=== PATIENT | female | born 1945 | race Caucasian/White ===

== ENCOUNTER → 2017-11-20 16:28 | Outpatient (REF) | payer MEDICARE, MEDICAID, SELFPAY ==
[2017-11-20 17:52] LABS: Amphetamine/Metha Screen,Urine Negative ng/mL (<1000); Barbiturates Screen,Urine Negative ng/mL (<200); Benzodiazepines Screen,Urine Negative ng/mL (200); Cannabinoid Screen,Urine Negative ng/mL (<50); Cocaine Screen,Urine Negative ng/g (<300); Methadone Screen,Urine Negative ng/mL (<300); Opiate Screen,Urine Positive ng/mL (<300); Phencyclidine Screen,Urine Negative ng/mL (<25)
== END ==
LOC: LAB 16:28
PROVIDERS: Visit Provider Emergency Medicine
DX: Z79.899 Other long term (current) drug therapy (principal)
CPT/HCPCS: 80305

== ENCOUNTER → 2017-12-20 15:50 | Outpatient (REF) | payer MEDICARE, MEDICAID, SELFPAY ==
[2017-12-20 21:58] LABS: Amphetamine/Metha Screen,Urine Negative ng/mL (<1000); Barbiturates Screen,Urine Negative ng/mL (<200); Benzodiazepines Screen,Urine Negative ng/mL (200); Cannabinoid Screen,Urine Negative ng/mL (<50); Cocaine Screen,Urine Negative ng/g (<300); Methadone Screen,Urine Negative ng/mL (<300)
[2017-12-20 22:27] LABS: Opiate Screen,Urine Positive ng/mL (<300); Phencyclidine Screen,Urine Negative ng/mL (<25)
== END ==
LOC: LAB 15:50
PROVIDERS: Visit Provider Emergency Medicine
DX: Z79.899 Other long term (current) drug therapy (principal)
CPT/HCPCS: 80305

== ENCOUNTER → 2018-01-05 11:16 | Outpatient (CLI) | payer MEDICARE, MEDICAID, SELFPAY ==
[2018-01-05 11:32] LABS: Basophils % 0.6 % (0.1-2.0); Eosinophils # 0.1 K/mm3 (0.0-0.4); Eosinophils % 1.8 % (0.1-12.0); Hematocrit 39.2 % (37.0-47.0); Hemoglobin 11.9 g/dL (12.2-16.2); Lymphocytes # 1.2 K/mm3 (0.7-4.5); Lymphocytes % 28.6 K/mm3 (10-50); Mean Corpuscular HGB Conc 30.3 g/dL (31.8-35.4); Mean Corpuscular Hemoglobin 21.6 pg (27.0-31.2); Mean Corpuscular Volume 71.1 fl (81-99); Mean Platelet Volume 9.4 fl (7.4-10.4); Monocytes # 0.3 K/mm3 (0.1-1.0); Monocytes % 7.8 % (1.7-9.3); Neutrophils # 2.5 K/mm3 (1.8-7.8); Neutrophils % 61.3 % (37.0-80.0); Platelet Count 172 K/mm3 (142-424); Red Blood Count 5.51 M/mm3 (4.20-5.40); Red Cell Distribution Width 16.3 % (11.5-17.5); White Blood Count 4.1 K/mm3 (4.8-10.8)
[2018-01-05 11:46] LABS: Alanine Aminotransferase 31 U/L (12-78); Alkaline Phosphatase 86 U/L (46-116); Anion Gap 13.3 mEq/L (5-15); Aspartate Amino Transferase 19 U/L (15-37); Bilirubin,Total 0.4 mg/dL (0.2-1.0); Blood Urea Nitrogen 15 mg/dL (7-18); Calcium 8.9 mg/dL (8.5-10.1); Carbon Dioxide 27 mmol/L (21.0-32.0); Chloride 104 mmol/L (98-107); Creatinine,Serum 0.82 mg/dL (0.55-1.02); Estimated Glomerular Filt Rate 69 ml/min (>60); GFR (African American) 83 ML/MIN (>60); Glucose 112 mg/dL (74-106); Potassium 4.3 mmoL/L (3.5-5.1); Sodium 140 mmol/L (136-145)
== END ==
PROVIDERS: Visit Provider Otolaryngology
DX: Z01.818 Encounter for other preprocedural examination (principal); L98.9 Disorder of the skin and subcutaneous tissue, unspecified; H93.91 Unspecified disorder of right ear
CPT/HCPCS: 36415; 80053; 85025; 93005

== ENCOUNTER → 2018-01-16 13:32 | Outpatient (REF) | payer MEDICARE, MEDICAID, SELFPAY ==
[2018-01-16 22:24] LABS: Amphetamine/Metha Screen,Urine Negative ng/mL (<1000); Barbiturates Screen,Urine Negative ng/mL (<200); Benzodiazepines Screen,Urine Negative ng/mL (200); Cannabinoid Screen,Urine Negative ng/mL (<50); Cocaine Screen,Urine Negative ng/g (<300); Methadone Screen,Urine Negative ng/mL (<300); Opiate Screen,Urine Positive ng/mL (<300); Phencyclidine Screen,Urine Negative ng/mL (<25)
== END ==
LOC: LAB 13:32
PROVIDERS: Visit Provider Emergency Medicine
DX: Z79.899 Other long term (current) drug therapy (principal)
CPT/HCPCS: 80305

== ENCOUNTER 2018-01-18 08:41 | Day surgery (SDC) | payer MEDICARE, MEDICAID, SELFPAY ==
[2018-01-18 08:56] VITALS: BP 155/65; PULSE 55; RESP 18; TEMP 36.4; O2SAT 96
--- NOTE | 2018-01-18 09:25 | HMH.ANESCL ---
[facility] Anesthesia Checklist - Patient Identification Patient Identification: Arm Band - Structural Data Admitted From: Home Planned Operative Procedure/s: excision skin lesions right ear, center of back Consent for Planned Operative Procedure(s) Verified: Yes Verified Documents: Surgical Consent, History and Physical - NPO Status Verified Time NPO: 00:00 - Additional verifications Anesthesia Reactions: No - Airway Assessment C-Spine Mobility Assessed: Yes (mp2) TMJ Mobility Assessed: Yes Dentition: Good Dentition - Neurological Assessment Level of Consciousness: Awake, Alert - Anesthesia Plan Anesthesia Risk discussed: Yes Anesthesia Plan: Verified ASA Class: II Anesthesia Type: MAC [facility] Anesthesia HX I have reviewed the patient's past medical history: Yes Medical History: Reports:: Cancer (leg- melanoma), Hyperlipidemia, Hypertension, Valvular Heart Disease Denies:: Diabetes Mellitus Type 1, Diabetes Mellitus Type 2, Internal Pacemaker, MRSA, Seizures Other Medical History: Denies: Blood Transfusion Reaction Laterality Cases: Right: Arthroscopy Shoulder Other Surgeries: Yes: Hysterectomy-Total, Other. No: Pacemaker Amputation: No Fractures: No *Family Hx:: Cancer, Heart Attack
[2018-01-18 11:40] VITALS: BP 149/76; PULSE 61; RESP 18; TEMP 36.3; O2SAT 96
[2018-01-18 11:55] VITALS: BP 150/71; PULSE 60; RESP 18; O2SAT 96
[2018-01-18 12:07] VITALS: BP 148/69; PULSE 63; RESP 18; O2SAT 95
--- NOTE | 2018-01-22 12:52 | HMH.OPNOTE ---
Date of procedure: 01/18/18 Pre-op Diagnosis:: 1. 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 Neoplasm back 1.5 cm Post-op Diagnosis:: same Procedure performed:: 1. 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 excision of neoplasm back 1.5 cm with simple repair Surgeon:: Richard Carolina MD [employer]ROLL [employer] BENEFITS MANAGER:: Scott Viera Anesthesia: MAC Estimated blood loss (mL): 3 Operative findings:: same Operative note:: The right ear was prepped and draped the perilesional area was infiltrated with a percent lidocaine containing epinephrine. The lesion was marked on the markup was incised and the lesion was removed along the level of the perichondrium. It was submitted. Bleeding was stopped bipolar cautery. Lateral incisions were made and flaps were elevated and the tissue rearrangement geometric plastic repair was done with interrupted 5-0 nylon sutures. A Dermabond dressing was applied. The patient was repositioned and the lesion on the back was prepped and draped, it measured 1.5 cm. The perilesional area was infiltrated with 2 cc of 2% lidocaine containing epinephrine. The markup was incised and the lesion was excised and submitted. A simple repair was done with interrupted 4-0 nylon sutures. Blood loss for all the procedure was less than 5 cc and completely stopped. A Dermabond dressing was applied to the back lesion and the patient was sent to recovery in good general condition. Condition: stable Disposition: same day Complications:: none
--- NOTE | 2018-01-22 12:57 | P.OP_ITS ---
Date of procedure: 01/18/18 Pre-op Diagnosis:: 1. 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 Neoplasm back 1.5 cm Post-op Diagnosis:: same Procedure performed:: 1. 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 excision of neoplasm back 1.5 cm with simple repair Surgeon:: Richard Carolina MD PERSONAL LINES AGENT:: Scott Viera Anesthesia: MAC Estimated blood loss (mL): 3 Operative findings:: same Operative note:: The right ear was prepped and draped the perilesional area was infiltrated with a percent lidocaine containing epinephrine. The lesion was marked on the markup was incised and the lesion was removed along the level of the perichondrium. It was submitted. Bleeding was stopped bipolar cautery. Lateral incisions were made and flaps were elevated and the tissue rearrangement geometric plastic repair was done with interrupted 5-0 nylon sutures. A Dermabond dressing was applied. The patient was repositioned and the lesion on the back was prepped and draped, it measured 1.5 cm. The perilesional area was infiltrated with 2 cc of 2% lidocaine containing epinephrine. The markup was incised and the lesion was excised and submitted. A simple repair was done with interrupted 4-0 nylon sutures. Blood loss for all the procedure was less than 5 cc and completely stopped. A Dermabond dressing was applied to the back lesion and the patient was sent to recovery in good general condition. Condition: stable Disposition: same day Complications:: none
== END 2018-01-18 12:10 | disposition home or self-care (01) ==
LOC: OR 08:43
PROVIDERS: PCP Emergency Medicine; Visit Provider Otolaryngology
DX: L82.1 Other seborrheic keratosis (principal); L72.0 Epidermal cyst
CPT/HCPCS: 14000; 14060; 88304; 88305; 96374; 96375

== ENCOUNTER → 2018-02-13 14:52 | Outpatient (REF) | payer MEDICARE, MEDICAID, SELFPAY ==
[2018-02-13 18:47] LABS: Amphetamine/Metha Screen,Urine Negative ng/mL (<1000); Barbiturates Screen,Urine Negative ng/mL (<200); Benzodiazepines Screen,Urine Negative ng/mL (200); Cannabinoid Screen,Urine Negative ng/mL (<50); Cocaine Screen,Urine Negative ng/g (<300); Methadone Screen,Urine Negative ng/mL (<300); Opiate Screen,Urine Positive ng/mL (<300); Phencyclidine Screen,Urine Negative ng/mL (<25)
== END ==
LOC: LAB 14:52
PROVIDERS: Visit Provider Emergency Medicine
DX: Z79.899 Other long term (current) drug therapy (principal)
CPT/HCPCS: 80305

== ENCOUNTER → 2018-02-16 11:19 | Outpatient (CLI) | payer MEDICARE, MEDICAID, SELFPAY | PROVIDERS: PCP Emergency Medicine; Visit Provider Emergency Medicine | DX: R07.9 Chest pain, unspecified (principal) | CPT/HCPCS: 93225; 93226 ==

== ENCOUNTER → 2018-03-14 13:07 | Outpatient (REF) | payer MEDICARE, MEDICAID, SELFPAY ==
[2018-03-14 19:09] LABS: Amphetamine/Metha Screen,Urine Negative ng/mL (<1000); Barbiturates Screen,Urine Negative ng/mL (<200); Benzodiazepines Screen,Urine Negative ng/mL (200); Cannabinoid Screen,Urine Negative ng/mL (<50); Cocaine Screen,Urine Negative ng/g (<300); Methadone Screen,Urine Negative ng/mL (<300); Opiate Screen,Urine Negative ng/mL (<300); Phencyclidine Screen,Urine Negative ng/mL (<25)
== END ==
LOC: LAB 13:07
PROVIDERS: Visit Provider Emergency Medicine
DX: Z79.899 Other long term (current) drug therapy (principal)
CPT/HCPCS: 80305

== ENCOUNTER → 2018-04-13 13:30 | Outpatient (CLI) | payer MEDICARE, MEDICAID, SELFPAY ==
[2018-04-13 19:45] LABS: Amphetamine/Metha Screen,Urine Negative ng/mL (<1000); Barbiturates Screen,Urine Negative ng/mL (<200); Benzodiazepines Screen,Urine Negative ng/mL (200); Cannabinoid Screen,Urine Negative ng/mL (<50); Cocaine Screen,Urine Negative ng/g (<300); Methadone Screen,Urine Negative ng/mL (<300); Opiate Screen,Urine Positive ng/mL (<300); Phencyclidine Screen,Urine Negative ng/mL (<25)
== END ==
PROVIDERS: Visit Provider Emergency Medicine
DX: Z79.899 Other long term (current) drug therapy (principal)
CPT/HCPCS: 80305

== ENCOUNTER → 2018-05-11 14:08 | Outpatient (CLI) | payer MEDICARE, MEDICAID, SELFPAY ==
[2018-05-11 18:43] LABS: Amphetamine/Metha Screen,Urine Negative ng/mL (<1000); Barbiturates Screen,Urine Negative ng/mL (<200); Benzodiazepines Screen,Urine Negative ng/mL (<200); Cannabinoid Screen,Urine Negative ng/mL (<50); Cocaine Screen,Urine Negative ng/mL (<300); Methadone Screen,Urine Negative ng/mL (<300); Opiate Screen,Urine Positive ng/mL (<300); Phencyclidine Screen,Urine Negative ng/mL (<25)
== END ==
PROVIDERS: Visit Provider Emergency Medicine
DX: Z79.899 Other long term (current) drug therapy (principal)
CPT/HCPCS: 80305

== ENCOUNTER → 2018-06-11 11:19 | Outpatient (REF) | payer MEDICARE, MEDICAID, SELFPAY ==
[2018-06-11 14:16] LABS: Amphetamine/Metha Screen,Urine Negative ng/mL (<1000); Barbiturates Screen,Urine Negative ng/mL (<200); Benzodiazepines Screen,Urine Negative ng/mL (<200); Cannabinoid Screen,Urine Negative ng/mL (<50); Cocaine Screen,Urine Negative ng/mL (<300); Methadone Screen,Urine Negative ng/mL (<300); Opiate Screen,Urine Negative ng/mL (<300); Phencyclidine Screen,Urine Negative ng/mL (<25)
== END ==
LOC: LAB 11:19
PROVIDERS: Visit Provider Emergency Medicine
DX: Z79.899 Other long term (current) drug therapy (principal)
CPT/HCPCS: 80305

== ENCOUNTER → 2018-06-19 07:56 | Outpatient (CLI) | payer MEDICARE, MEDICAID, SELFPAY | PROVIDERS: Visit Provider Emergency Medicine | DX: Z79.899 Other long term (current) drug therapy (principal) ==

== ENCOUNTER → 2018-07-04 11:18 | Outpatient (REF) | payer MEDICARE, MEDICAID, SELFPAY ==
[2018-07-04 14:19] LABS: Amphetamine/Metha Screen,Urine Negative ng/mL (<1000); Barbiturates Screen,Urine Negative ng/mL (<200); Benzodiazepines Screen,Urine Negative ng/mL (<200); Cannabinoid Screen,Urine Negative ng/mL (<50); Cocaine Screen,Urine Negative ng/mL (<300); Methadone Screen,Urine Negative ng/mL (<300); Opiate Screen,Urine Negative ng/mL (<300); Phencyclidine Screen,Urine Negative ng/mL (<25)
[2018-07-04 18:50] LABS: Basophils % 0.5 % (0.1-2.0); Eosinophils # 0.1 K/mm3 (0.0-0.4); Eosinophils % 3.7 % (0.1-12.0); Hematocrit 38.8 % (37.0-47.0); Hemoglobin 11.7 g/dL (12.2-16.2); Lymphocytes # 1.4 K/mm3 (0.7-4.5); Lymphocytes % 40.9 K/mm3 (10-50); Mean Corpuscular HGB Conc 30.1 g/dL (31.8-35.4); Mean Corpuscular Hemoglobin 21.1 pg (27.0-31.2); Mean Corpuscular Volume 70.2 fl (81-99); Mean Platelet Volume 8.2 fl (7.4-10.4); Monocytes # 0.4 K/mm3 (0.1-1.0); Monocytes % 10.7 % (1.7-9.3); Neutrophils # 1.5 K/mm3 (1.8-7.8); Neutrophils % 44.2 % (37.0-80.0); Platelet Count 143 K/mm3 (142-424); Red Blood Count 5.52 M/mm3 (4.20-5.40); Red Cell Distribution Width 16.5 % (11.5-17.5); White Blood Count 3.4 K/mm3 (4.8-10.8)
[2018-07-04 19:04] LABS: Alanine Aminotransferase 26 U/L (12-78); Albumin Level 4.1 gm/dL (3.4-5.0); Albumin/Globulin Ratio 1.1 (1.1-1.8); Alkaline Phosphatase 83 U/L (46-116); Anion Gap 13.7 mEq/L (5-15); Aspartate Amino Transferase 21 U/L (15-37); Bilirubin,Total 0.4 mg/dL (0.2-1.0); Blood Urea Nitrogen 11 mg/dL (7-18); Calcium 9.2 mg/dL (8.5-10.1); Carbon Dioxide 29 mmol/L (21.0-32.0); Chloride 104 mmol/L (98-107); Creatinine,Serum 0.86 mg/dL (0.55-1.02); Estimated Glomerular Filt Rate 65 ml/min (>60); GFR (African American) 79 ML/MIN (>60); Globulin 3.6 gm/dl (1.3-3.2); Glucose 104 mg/dL (74-106); Potassium 4.7 mmoL/L (3.5-5.1); Sodium 142 mmol/L (136-145); Total Protein,Serum 7.7 gm/dL (6.4-8.2)
== END ==
LOC: LAB 11:18
PROVIDERS: Visit Provider Emergency Medicine
DX: Z79.899 Other long term (current) drug therapy (principal); Z95.3 Presence of xenogenic heart valve; M54.5 Low back pain
CPT/HCPCS: 80053; 80305; 85025

== ENCOUNTER → 2018-07-04 15:08 | Outpatient (CLI) | payer MEDICARE, MEDICAID, SELFPAY ==
[2018-07-13 12:22] LABS: Alprazolam Negative (Cutoff=100); Benzodiazepines Positive ng/mL (Cutoff=100); Clonazepam Positive (.); Flurazepam Negative (Cutoff=100); Lorazepam Negative (Cutoff=100); Midazolam Negative (Cutoff=100); Oxycodone Positive (.); Oxymorphone Positive (.); Temazepam Negative (Cutoff=100); Triazolam Negative (Cutoff=100)
[2018-07-13 19:01] LABS: Clonazepam Confirm 363 ng/mL (Cutoff=100); Oxycodone Confirm 758 ng/mL (Cutoff=100); Oxymorphone Confirm 227 ng/mL (Cutoff=100)
== END ==
PROVIDERS: Visit Provider Emergency Medicine
DX: M54.5 Low back pain (principal); Z79.899 Other long term (current) drug therapy; Z95.3 Presence of xenogenic heart valve
CPT/HCPCS: 80346; 80365

== ENCOUNTER → 2018-08-08 13:07 | Outpatient (REF) | payer MEDICARE, MEDICAID, SELFPAY ==
[2018-08-08 18:40] LABS: Amphetamine/Metha Screen,Urine Negative ng/mL (<1000); Barbiturates Screen,Urine Negative ng/mL (<200); Benzodiazepines Screen,Urine Negative ng/mL (<200); Cannabinoid Screen,Urine Negative ng/mL (<50); Cocaine Screen,Urine Negative ng/mL (<300); Methadone Screen,Urine Negative ng/mL (<300); Opiate Screen,Urine Positive ng/mL (<300); Phencyclidine Screen,Urine Negative ng/mL (<25)
== END ==
LOC: LAB 13:07
PROVIDERS: Visit Provider Emergency Medicine
DX: Z79.899 Other long term (current) drug therapy (principal)
CPT/HCPCS: 80305

== ENCOUNTER → 2018-09-06 16:32 | Outpatient (CLI) | payer MEDICARE, MEDICAID, SELFPAY ==
[2018-09-07 18:27] LABS: Amphetamine/Metha Screen,Urine Negative ng/mL (<1000); Barbiturates Screen,Urine Negative ng/mL (<200); Benzodiazepines Screen,Urine Positive ng/mL (<200); Cannabinoid Screen,Urine Negative ng/mL (<50); Cocaine Screen,Urine Negative ng/mL (<300); Methadone Screen,Urine Negative ng/mL (<300); Opiate Screen,Urine Negative ng/mL (<300); Phencyclidine Screen,Urine Negative ng/mL (<25)
[2018-09-16 07:11] LABS: Alprazolam Negative (Cutoff=100); Benzodiazepines Positive ng/mL (Cutoff=100); Clonazepam Positive (.); Flurazepam Negative (Cutoff=100); Lorazepam Negative (Cutoff=100); Midazolam Negative (Cutoff=100); Oxycodone (GC/MS) 805 ng/mL (Cutoff=100); Oxymorphone (GC/MS) 639 ng/mL (Cutoff=100); Temazepam Positive (.); Triazolam Negative (Cutoff=100)
[2018-09-17 03:55] LABS: Clonazepam Confirm 300 ng/mL (Cutoff=100); Opiates Negative (Cutoff=100)
== END ==
PROVIDERS: PCP Emergency Medicine; Visit Provider Emergency Medicine
DX: M54.5 Low back pain (principal)
CPT/HCPCS: 80305; 80346; 80361; 80365; G0480

== ENCOUNTER → 2018-10-05 18:15 | Outpatient (CLI) | payer MEDICARE, MEDICAID, SELFPAY ==
[2018-10-05 19:11] LABS: Amphetamine/Metha Screen,Urine Negative ng/mL (<1000); Barbiturates Screen,Urine Negative ng/mL (<200); Benzodiazepines Screen,Urine Negative ng/mL (<200); Cannabinoid Screen,Urine Negative ng/mL (<50); Cocaine Screen,Urine Negative ng/mL (<300); Methadone Screen,Urine Negative ng/mL (<300); Opiate Screen,Urine Negative ng/mL (<300); Phencyclidine Screen,Urine Negative ng/mL (<25)
== END ==
PROVIDERS: Visit Provider Emergency Medicine
DX: M54.5 Low back pain (principal)
CPT/HCPCS: 80305

== ENCOUNTER → 2018-11-26 17:54 | Outpatient (CLI) | payer MEDICARE, MEDICAID, SELFPAY ==
[2018-11-26 22:40] LABS: Amphetamine/Metha Screen,Urine Negative ng/mL (<1000); Barbiturates Screen,Urine Negative ng/mL (<200); Benzodiazepines Screen,Urine Positive ng/mL (<200); Cannabinoid Screen,Urine Negative ng/mL (<50); Cocaine Screen,Urine Negative ng/mL (<300); Methadone Screen,Urine Negative ng/mL (<300); Opiate Screen,Urine Negative ng/mL (<300); Phencyclidine Screen,Urine Negative ng/mL (<25)
[2018-12-08 08:21] LABS: Oxycodone (GC/MS) 340 ng/mL (Cutoff=100)
[2018-12-08 12:57] LABS: Opiates Negative (Cutoff=100)
== END ==
PROVIDERS: Visit Provider Emergency Medicine
DX: G89.29 Other chronic pain (principal)
CPT/HCPCS: 80305; 80361; 80365; G0480

== ENCOUNTER → 2019-01-23 18:20 | Outpatient (CLI) | payer MEDICARE, MEDICAID, SELFPAY ==
[2019-01-23 19:50] LABS: Amphetamine/Metha Screen,Urine Negative ng/mL (<1000); Barbiturates Screen,Urine Negative ng/mL (<200); Benzodiazepines Screen,Urine Negative ng/mL (<200); Cannabinoid Screen,Urine Negative ng/mL (<50); Cocaine Screen,Urine Negative ng/mL (<300); Methadone Screen,Urine Negative ng/mL (<300); Opiate Screen,Urine Negative ng/mL (<300); Phencyclidine Screen,Urine Negative ng/mL (<25)
[2019-01-30 15:25] LABS: Oxycodone (GC/MS) 222 ng/mL (Cutoff=100)
[2019-01-30 15:43] LABS: Opiates Negative (Cutoff=100); Oxymorphone (GC/MS) 242 ng/mL (Cutoff=100)
== END ==
PROVIDERS: Visit Provider Emergency Medicine
DX: M54.5 Low back pain (principal)
CPT/HCPCS: 80305; 80361; 80365; G0480

== ENCOUNTER → 2019-02-08 08:28 | Outpatient (CLI) | payer MEDICARE, MEDICAID, SELFPAY ==
--- NOTE | 2019-02-08 08:37 | XR_ITS ---
XR shoulder LT min 2V Ordering Physician: Pako William MD Patient Age: 73 years: Female HISTORY: ITS.REASON: axillary, grashy, supraspinatus views Shoulder pain 2 months history of torn rotator cuff opposite shoulder TECHNIQUE: 3 views shoulder COMPARISON :None FINDINGS Glenohumeral joint appears intact. Humeral head and neck intact tuberosity intact. Glenoid appears satisfactory. AC joint intact. Subacromial space adequate on these views. No fracture nor dislocation. Normal glenohumeral relationships. Upper right ribs negative and right lung apex clear. Previous median sternotomy. IMPRESSION: Negative views the right shoulder. No fracture nor dislocation. Glenohumeral joint intact.
== END ==
PROVIDERS: PCP Emergency Medicine; Visit Provider Orthopaedic Surgery
DX: M25.512 Pain in left shoulder (principal)
CPT/HCPCS: 73030

== ENCOUNTER → 2019-02-13 15:06 | Outpatient (CLI) | payer MEDICARE, MEDICAID, SELFPAY ==
--- NOTE | 2019-02-13 15:07 | MR_ITS ---
MR shoulder LT wo con HISTORY:Left shoulder pain with inability, above the head ITS.REASON: evaluate for rotator cuff tear ORDERING PHYSICIAN: Pako William MD PATIENT AGE: 73 years Comparison: 02/08/2019 TECHNIQUE: Standard multiplanar multiecho sequences are performed without contrast. FINDINGS: There is acromioclavicular arthropathy with inferior spurring at the AC joint causing indentation upon the musculotendinous junction of the supraspinatus muscle and tendon consistent with impingement. There is thickening of the supraspinatus tendon distally consistent with tendinopathy/tendinosis with some focal increased T2 signal distally which could be due to partial tear. A full-thickness tear with tendon and muscle retraction is not present There is also some mild thickening of the infraspinatus tendon consistent with tendinopathy/tendinosis. Subscapularis tendon is thickened with some discontinuity along the distal aspect just medial to the bicipital groove suggesting a tear of the subscapularis tendon. Teres minor tendon is unremarkable. Bicipital tendon is in place. There is a small amount fluid within the shoulder joint and some subchondral cystic changes of the humeral head. No obvious labral tear. No fracture or dislocation. IMPRESSION: 1. Acromioclavicular arthropathy with subacromial stenosis and impingement upon the vascular tendon is junction of the supraspinatus. 2. Tendinopathy/tendinosis of the supraspinatus tendon with suspected partial tear distally 3. Tendinopathy/tendinosis of the infraspinatus tendon. 4. There does appear to be a partial tear of the subscapularis tendon just medial to the bicipital groove. 5. Small shoulder joint effusion with subchondral cystic changes of the humeral head
--- NOTE | 2019-02-13 15:07 | XR_ITS ---
XR chest 2V HISTORY: Evaluate the loop recorder device before MRI ITS.REASON: recomended by Dr uGerrero ORDERING PHYSICIAN: Pako William MD PATIENT AGE: 73 years COMPARISON: None FINDINGS: PA and lateral views of the chest are obtained to evaluate the loop recorder device to ensure adequate placement for MRI safety. The loop recorder is along the presternal region at the third interspace level which constitutes a safe position for MRI. There has been a prior median sternotomy and aortic valve replacement. There are degenerative changes in the thoracic spine and there is a metallic screw like density over the right humeral head. IMPRESSION: 1. No acute finding. 2. The loop recorder device is felt to be in a safe position for MRI 3. Status post aortic valve replacement
--- NOTE | 2019-02-13 15:07 | MM_ITS ---
MM Dig screening mamm BI w/CAD ORDERING PHYSICIAN : Pako William MD PATIENT AGE: 73 years GENDER: Female COMPARISON: February 2014, March 2016, bilateral mammogram . Also May 2016 right mammogram following percutaneous stereotactic biopsy- revealed fibrocystic changes INDICATION: ITS.Routine screening mammogram. Previous previous percutaneous biopsy right breast with metallic clip towards 12 o'clock position at central breast. . thispercutaneous stereotactic biopsy- revealed fibrocystic changes Left breast but no areas of concern. TECHNIQUE: Standard CC and MLO images were obtained. R2 CAD reviewed. FINDINGS: . moderate residual breast density anterior breast. Slightly heterogeneous breast Mild/moderate asymmetry again noted LEFT BREAST: . near 1 cm area of asymmetric density at seen towards superior left breast, residing at the upper outer quadrant, towards anterior left breast. This Density has been on many previous mammograms; & although appears similar on standard cc and MLO view it does appear to be denser and more pronounced on the additional MLO with nipple in profile view.... Actually this density is been present present since 2010 and 2013; however since it is dense, more focal in given its and with irregular margins & stand out unique focus of density,... I would suggest spot views and ultrasound to further evaluate. No previous Ultrasound this area is available on PACS.. .. Additional. Loop recorder projected over the medial left breast only slightly obscures the medialmost breast on these 2 views.. RIGHT BREAST: Again see asymmetric areas of density at the right retroareolar region. Area labeled A: The more superior area labeled a has been present since 2015. Although it does appear to be very slightly generous size in character today measuring 14 mm height. Thus I would suggest ultrasound and spot views of right breast of this area when patient returns as well. Area labeled B: Just inferior to this in the area labeled B small 7 mm length. Seen here on MLO view and I believe correlates with a slightly more prominent duct at immediate retroareolar region cc view.. Suspect Mild ductal prominence likely present here versus small cyst . This area B should be included with the spot views and ultrasound .. MicroMark marker clip from previous stereotactic biopsy deeper at the breast towards 12:00 is noted.. Calcifications at that site were removed with the biopsy. ...... IMPRESSION: ...... Most likely benign densities bilaterally-but warrant & with benefit from spot views & ultrasound bilaterally 1. Right Breast. Focal somewhat Nodular appearing densities retroareolar region. Although similar to 2017, these areas both appear very slightly more generous today... Area labeled A and B are slightly more evident today Specifically Area Labeled A appears very slightly on the MLO view. Area labeled B more inferiorly, slightly focal density character which suspect is a prominent duct or cyst) . Most likely is a stable features but significance but would benefit from follow-up spot views and ultrasound further evaluate right breast .. Previous biopsy deeper right breast removed calcifications. 2.. Left Breast. A long-standing density at the superior breast, upper-outer quadrant again noted but appears more pronounced particularly on today's additional MLO view, nipple profile view. . Suggest additional CC and MLO and 90 degree spot views along with left breast ultrasound . This focal area of density has not been evaluated ultrasound previously ... Again most likely is a stable feature but would benefit from additional views given this focal density & ill-defined margins BI-RADS Category: 0 Need Additional Imaging Evaluation
== END ==
PROVIDERS: PCP Emergency Medicine; Visit Provider Orthopaedic Surgery
DX: I11.9 Hypertensive heart disease without heart failure (principal); Z12.31 Encounter for screening mammogram for malignant neoplasm of breast; M25.512 Pain in left shoulder; Z95.3 Presence of xenogenic heart valve
CPT/HCPCS: 71046; 73221; 77067

== ENCOUNTER → 2019-02-22 17:23 | Outpatient (CLI) | payer MEDICARE, MEDICAID, SELFPAY ==
[2019-02-22 19:53] LABS: Blood Urea Nitrogen 15 mg/dL (7-18); Calcium 9.8 mg/dL (8.5-10.1); Carbon Dioxide 26 mmol/L (21.0-32.0); Chloride 102 mmol/L (98-107); Creatinine,Serum 0.82 mg/dL (0.55-1.02); Estimated Glomerular Filt Rate 69 ml/min (>60); GFR (African American) 83 ML/MIN (>60); Glucose 106 mg/dL (74-106); Sodium 139 mmol/L (136-145)
== END ==
PROVIDERS: Visit Provider Emergency Medicine
DX: I11.9 Hypertensive heart disease without heart failure (principal)
CPT/HCPCS: 80048

== ENCOUNTER → 2019-03-05 13:25 | Outpatient (CLI) | payer MEDICARE, MEDICAID, SELFPAY ==
--- NOTE | 2019-03-05 13:26 | US_ITS ---
MM Dig mamm BI DX w/CAD, US breast RT complete, US breast LT complete INDICATION: Follow-up abnormal mammogram ORDERING PHYSICIAN: Benito Mathew MD PATIENT AGE: 73 years COMPARISON: 02/13/2019, 03/14/2016 TECHNIQUE: Problem-solving views performed of both breasts along with bilateral breast ultrasound FINDINGS: There is asymmetric density in the central aspect of the right breast in the retroareolar area. This does appear to compress out on the MLO view. There is some persistent asymmetric density on the cc view spot compression view. This may be due to an area of scarring been near the previous biopsy clip. Right breast ultrasound: There is a 9 mm cyst at 11:00 which may part contributing to the density noted on the mammogram. An additional 5 mm cyst is also present at 11:00. No suspicious nodules are evident. Previously there was a 1 cm cyst hypoechoic nodule with poor through transmission of sound at 12:00 not apparent on today's exam. Left mammogram: Spot compression views are performed of the lateral left breast showing asymmetric density at 12 mm similar to the previous exam. This is not as well demonstrated on the focal spot compression view and is not demonstrated on the orthogonal view. This nodular area has been stable since 10/19/2012. Left breast ultrasound: No discrete abnormality evident. IMPRESSION: Asymmetric densities are present in both breasts probably benign. No convincing evidence of malignancy. Recommend bilateral 6 month mammographic and right-sided sonographic follow-up BI-RADS Category: 3 Probably Benign Finding Short Term Follow-up RECOMMENDED FOLLOW-UP: 6M - 6 MONTH FOLLOW-UP (A letter has been sent to the patient regarding results of the study.)
== END ==
PROVIDERS: PCP Emergency Medicine; Visit Provider Emergency Medicine
DX: R92.8 Other abnormal and inconclusive findings on diagnostic imaging of breast (principal)
CPT/HCPCS: 76641; 77066

== ENCOUNTER → 2019-04-17 11:02 | Outpatient (CLI) | payer MEDICARE, MEDICAID, SELFPAY ==
--- NOTE | 2019-04-17 11:06 | CA_ITS ---
PROCEDURE: 2-D M-mode and color Doppler study INDICATIONS FOR THE TEST: Chest pain COPD Heart Murmur Tobacco Smoking Palpitations Fatigue Syncope Edema HypertensionXDiabetes Mellitus Rheumatic Fever SOBXDOE Obesity HyperlipidemiaX Family History HD Additional History AF,BIOPROSTHETIC AV PATIENT INFORMATION HEIGHT: 67 WEIGHT:174 GENDER: Female B/P:156/82 2-D/M-MODE INTERPRETATION: 2-D MEASUREMENTS OBSERVED VALUES IN CMS Right Ventricular Dimension (RVDd) 2.3 Interventricular Septum (Thickness)(IVsd) 1.1 Left Ventricular Internal Dimensions(LVIDd) 5.1 Left Ventricular Posterior Wall (Thickness)(LVPWd) 1.1 Aortic Root 4.9 Aortic Cusp Separation Left Atrial Dimensions (LAD) 2.0 2D 1. Left atrium is mildly enlarged, left ventricle is normal size, mild concentric left ventricular hypertrophy, visually estimated ejection fraction 55% with no regional wall motion abnormality. 2. The right atrium and right ventricle are normal size and contractility. 3. There is mild prosthetic valve noted in the aortic position, the valve is well seated. 4. The mitral and tricuspid valve leaflets are minimally thickened. 5. The pulmonic valve is poorly visualized. 6. No significant pericardial effusion noted. DOPPLER INTERROGATION: 1. The maximum aortic out flow velocity across the prosthetic valve is 3.5 m/s, resulting in a mean gradient across valve of 28 mmHg, this represents moderate prosthetic valve stenosis, there is mild aortic insufficiency. 2. The mitral inflow velocity within normal range, there is no mitral stenosis, there is mild mitral regurgitation. Grade 1 diastolic dysfunction seen with tissue Doppler evidence of raised left atrial pressure. 3. Mild tricuspid regurgitation, tricuspid regurgitation jet velocity is inadequate for calculation of the right ventricular systolic pressure. CONCLUSION: 1. Mildly enlarged left atrium, normal left ventricular size, visually estimated ejection fraction 55% with no regional wall motion abnormality, grade 1 diastolic dysfunction seen with tissue Doppler evidence of raised left atrial pressure. 2. Mild prosthetic valve in aortic position, mean gradient across valve is 28 mmHg represents moderate prosthetic valve stenosis, there is mild aortic insufficiency. 3. Mild mitral and tricuspid regurgitation 4. No significant pericardial effusion noted.
== END ==
PROVIDERS: PCP Emergency Medicine; Visit Provider Nurse Practitioner Family
DX: E78.2 Mixed hyperlipidemia (principal); I11.9 Hypertensive heart disease without heart failure; I27.20 Pulmonary hypertension, unspecified; I48.0 Paroxysmal atrial fibrillation; Z95.3 Presence of xenogenic heart valve
CPT/HCPCS: 93306

== ENCOUNTER → 2019-04-23 18:02 | Outpatient (CLI) | payer MEDICARE, MEDICAID, SELFPAY ==
[2019-04-23 19:17] LABS: Amphetamine/Metha Screen,Urine Negative ng/mL (<1000); Barbiturates Screen,Urine Negative ng/mL (<200); Benzodiazepines Screen,Urine Negative ng/mL (<200); Cannabinoid Screen,Urine Negative ng/mL (<50); Cocaine Screen,Urine Negative ng/mL (<300); Methadone Screen,Urine Negative ng/mL (<300); Opiate Screen,Urine Positive ng/mL (<300); Phencyclidine Screen,Urine Negative ng/mL (<25)
== END ==
PROVIDERS: Visit Provider Emergency Medicine
DX: Z79.899 Other long term (current) drug therapy (principal)
CPT/HCPCS: 80305

== ENCOUNTER → 2019-06-21 12:15 | Outpatient (CLI) | payer MEDICARE, MEDICAID, SELFPAY ==
[2019-06-24 17:32] LABS: Amphetamine/Metha Screen,Urine Negative ng/mL (<1000); Barbiturates Screen,Urine Negative ng/mL (<200); Benzodiazepines Screen,Urine Positive ng/mL (<200); Cannabinoid Screen,Urine Negative ng/mL (<50); Cocaine Screen,Urine Negative ng/mL (<300); Methadone Screen,Urine Negative ng/mL (<300); Opiate Screen,Urine Positive ng/mL (<300); Phencyclidine Screen,Urine Negative ng/mL (<25)
== END ==
PROVIDERS: Visit Provider Emergency Medicine
DX: M54.5 Low back pain (principal)
CPT/HCPCS: 80305

== ENCOUNTER → 2019-08-20 17:22 | Outpatient (CLI) | payer MEDICARE, MEDICAID, SELFPAY ==
[2019-08-20 21:05] LABS: Amphetamine/Metha Screen,Urine Negative ng/mL (<1000); Barbiturates Screen,Urine Negative ng/mL (<200); Benzodiazepines Screen,Urine Negative ng/mL (<200); Cannabinoid Screen,Urine Negative ng/mL (<50); Cocaine Screen,Urine Negative ng/mL (<300); Methadone Screen,Urine Negative ng/mL (<300); Opiate Screen,Urine Negative ng/mL (<300); Phencyclidine Screen,Urine Negative ng/mL (<25)
[2019-08-28 08:16] LABS: Opiates Negative (Cutoff=100)
== END ==
PROVIDERS: Visit Provider Emergency Medicine
DX: M54.5 Low back pain (principal); Z79.899 Other long term (current) drug therapy
CPT/HCPCS: 80305; 80361; 80365; G0480

== ENCOUNTER → 2019-10-18 16:45 | Outpatient (CLI) | payer MEDICARE, MEDICAID, SELFPAY ==
[2019-10-18 17:26] LABS: Amphetamine/Metha Screen,Urine Negative ng/mL (<1000); Barbiturates Screen,Urine Negative ng/mL (<200); Benzodiazepines Screen,Urine Negative ng/mL (<200); Cannabinoid Screen,Urine Negative ng/mL (<50); Cocaine Screen,Urine Negative ng/mL (<300); Methadone Screen,Urine Negative ng/mL (<300); Opiate Screen,Urine Positive ng/mL (<300); Phencyclidine Screen,Urine Negative ng/mL (<25)
== END ==
PROVIDERS: Visit Provider Emergency Medicine
DX: M54.5 Low back pain (principal)
CPT/HCPCS: 80305

== ENCOUNTER → 2019-12-18 18:28 | Outpatient (CLI) | payer MEDICARE, MEDICAID, SELFPAY ==
[2019-12-18 18:55] LABS: Basophils % 0.5 % (0.1-2.0); Eosinophils # 0.1 K/mm3 (0.0-0.4); Eosinophils % 2.3 % (0.1-12.0); Hematocrit 39.5 % (37.0-47.0); Hemoglobin 11.8 g/dL (12.2-16.2); Lymphocytes # 1.4 K/mm3 (0.7-4.5); Mean Corpuscular HGB Conc 29.9 g/dL (31.8-35.4); Mean Platelet Volume 9.1 fl (7.4-10.4); Monocytes # 0.3 K/mm3 (0.1-1.0); Monocytes % 8.5 % (1.7-9.3); Neutrophils # 1.8 K/mm3 (1.8-7.8); Neutrophils % 49.6 % (37.0-80.0); Platelet Count 131 K/mm3 (142-424); Red Blood Count 5.13 M/mm3 (4.20-5.40); Red Cell Distribution Width 15.1 % (11.5-17.5); White Blood Count 3.6 K/mm3 (4.8-10.8)
[2019-12-18 19:33] LABS: Amphetamine/Metha Screen,Urine Negative ng/mL (<1000); Barbiturates Screen,Urine Negative ng/mL (<200); Benzodiazepines Screen,Urine Negative ng/mL (<200); Cannabinoid Screen,Urine Negative ng/mL (<50); Cocaine Screen,Urine Negative ng/mL (<300); Methadone Screen,Urine Negative ng/mL (<300); Opiate Screen,Urine Positive ng/mL (<300); Phencyclidine Screen,Urine Negative ng/mL (<25)
[2019-12-18 20:01] LABS: Alanine Aminotransferase 23 U/L (9-52); Albumin Level 3.9 g/dL (3.4-5.0); Albumin/Globulin Ratio 1.1 (1.1-1.8); Alkaline Phosphatase 88 U/L (46-116); Anion Gap 13.8 mEq/L (5-15); Aspartate Amino Transferase 29 U/L (15-37); Bilirubin,Total 0.4 mg/dL (0.2-1.0); Blood Urea Nitrogen 17 mg/dL (7-18); Calcium 8.6 mg/dL (8.5-10.1); Carbon Dioxide 28 mmol/L (21.0-32.0); Chloride 105 mmol/L (98-107); Chol/HDL Ratio 6.2 (1-3.5); Cholesterol 191 mg/dL (140-200); Creatinine,Serum 0.84 mg/dL (0.55-1.02); Estimated Glomerular Filt Rate 67 ml/min (>60); Free T4 (Free Thyroxine) 0.88 ng/dl (0.76-1.46); GFR (African American) 81 ML/MIN (>60); Globulin 3.4 gm/dl (1.3-3.2); Glucose 90 mg/dL (74-106); HDL Cholesterol 31 mg/dL (29-89); LDL Cholesterol 121 mg/dL (0-130); Potassium 4.8 mmoL/L (3.5-5.1); Sodium 142 mmol/L (137-145); Thyroid Stimulating Hormone 3.06 uIU/ml (0.358-3.740); Total Protein,Serum 7.3 g/dL (6.4-8.2); Triglycerides 195 mg/dL (30-200); VLDL Cholesterol 39 mg/dL (0-40)
== END ==
PROVIDERS: Visit Provider Emergency Medicine
DX: I27.20 Pulmonary hypertension, unspecified (principal); I49.5 Sick sinus syndrome; I10 Essential (primary) hypertension; M54.5 Low back pain
CPT/HCPCS: 80053; 80061; 80305; 84439; 84443; 85025

== ENCOUNTER → 2019-12-31 14:15 | Outpatient (CLI) | payer MEDICARE, MEDICAID, SELFPAY ==
--- NOTE | 2019-12-31 14:41 | ECG_ITS ---
APPROVED REPORT Exam: Resting ECG HR:64 bpm ECG Measurements Heart Rate 64 AXES DC 214 P 8 QRSd 110 QRS -37 QT 452 T 21 QTc 466 <Conclusion> Sinus rhythm with 1st degree AV block Left axis deviation Abnormal ECG Electronically signed by : Elian Norris, 01/01/2020 16:11:37
[2019-12-31 15:25] LABS: Basophils % 0.5 % (0.1-2.0); Eosinophils # 0.1 K/mm3 (0.0-0.4); Eosinophils % 1.9 % (0.1-12.0); Hematocrit 39.9 % (37.0-47.0); Hemoglobin 12.2 g/dL (12.2-16.2); Lymphocytes # 1.6 K/mm3 (0.7-4.5); Lymphocytes % 36.9 % (10-50); Mean Corpuscular HGB Conc 30.7 g/dL (31.8-35.4); Mean Corpuscular Hemoglobin 23.4 pg (27.0-31.2); Mean Corpuscular Volume 76.4 fl (81-99); Mean Platelet Volume 8.5 fl (7.4-10.4); Monocytes # 0.3 K/mm3 (0.1-1.0); Monocytes % 7.8 % (1.7-9.3); Neutrophils # 2.3 K/mm3 (1.8-7.8); Neutrophils % 52.9 % (37.0-80.0); Platelet Count 143 K/mm3 (142-424); Red Blood Count 5.23 M/mm3 (4.20-5.40); Red Cell Distribution Width 15.4 % (11.5-17.5); White Blood Count 4.3 K/mm3 (4.8-10.8)
[2019-12-31 17:03] LABS: Anion Gap 12.3 mEq/L (5-15); Blood Urea Nitrogen 20 mg/dl (7-17); Calcium 9.2 mg/dl (8.4-10.2); Carbon Dioxide 28 mmol/L (22.0-30.0); Chloride 101 mmol/L (98-107); Estimated Glomerular Filt Rate 71 ml/min (>60); GFR (African American) 85 ML/MIN (>60); Glucose 91 mg/dl (74-100); Potassium 5.3 mmoL/L (3.5-5.1); Sodium 136 mmol/L (136-145)
== END ==
PROVIDERS: Visit Provider Otolaryngology
DX: Z01.818 Encounter for other preprocedural examination (principal); C44.311 Basal cell carcinoma of skin of nose
CPT/HCPCS: 36415; 80048; 85025; 93005

== ENCOUNTER → 2020-01-07 12:21 | Outpatient (CLI) | payer MEDICARE, MEDICAID, SELFPAY ==
[2020-01-07 14:14] LABS: Chloride 102 mmol/L (98-107)
[2020-01-07 14:15] LABS: Potassium 4.8 mmoL/L (3.5-5.1); Sodium 135 mmol/L (136-145)
[2020-01-07 14:17] LABS: Blood Urea Nitrogen 16 mg/dl (7-17); Estimated Glomerular Filt Rate 71 ml/min (>60); GFR (African American) 85 ML/MIN (>60)
[2020-01-07 14:18] LABS: Anion Gap 10.8 mEq/L (5-15); Carbon Dioxide 27 mmol/L (22.0-30.0); Glucose 100 mg/dl (74-100)
== END ==
PROVIDERS: Visit Provider Urology
DX: E78.2 Mixed hyperlipidemia (principal); I10 Essential (primary) hypertension; I27.20 Pulmonary hypertension, unspecified; I48.0 Paroxysmal atrial fibrillation; Z95.3 Presence of xenogenic heart valve
CPT/HCPCS: 36415; 80048

== ENCOUNTER → 2020-01-10 12:53 | Outpatient (CLI) | payer MEDICARE, MEDICAID, SELFPAY | PROVIDERS: PCP Emergency Medicine; Visit Provider Urology | DX: E78.2 Mixed hyperlipidemia (principal); I10 Essential (primary) hypertension; I27.20 Pulmonary hypertension, unspecified; I48.0 Paroxysmal atrial fibrillation; R00.2 Palpitations; Z01.810 Encounter for preprocedural cardiovascular examination; Z95.3 Presence of xenogenic heart valve | CPT/HCPCS: 93306 ==

== ENCOUNTER → 2020-08-12 09:59 | Outpatient (CLI) | payer MEDICARE, MEDICAID, SELFPAY ==
[2020-08-12 10:55] LABS: Basophils % 0.8 % (0.1-2.0); Eosinophils # 0.1 K/mm3 (0.0-0.4); Eosinophils % 2.8 % (0.1-12.0); Hematocrit 39.7 % (37.0-47.0); Hemoglobin 12.1 g/dL (12.2-16.2); Lymphocytes # 1.4 K/mm3 (0.7-4.5); Lymphocytes % 33.7 % (10-50); Mean Corpuscular HGB Conc 30.5 g/dL (31.8-35.4); Mean Corpuscular Hemoglobin 23.5 pg (27.0-31.2); Mean Corpuscular Volume 77.1 fl (81-99); Mean Platelet Volume 8.2 fl (7.4-10.4); Monocytes # 0.3 K/mm3 (0.1-1.0); Neutrophils # 2.2 K/mm3 (1.8-7.8); Neutrophils % 54.6 % (37.0-80.0); Platelet Count 127 K/mm3 (142-424); Red Blood Count 5.15 M/mm3 (4.20-5.40); Red Cell Distribution Width 15.4 % (11.5-17.5)
[2020-08-12 11:03] LABS: Chloride 102 mmol/L (98-107); Potassium 4.7 mmoL/L (3.5-5.1); Sodium 140 mmol/L (136-145)
[2020-08-12 11:06] LABS: Blood Urea Nitrogen 23 mg/dl (7-17); Estimated Glomerular Filt Rate 62 ml/min (>60); GFR (African American) 74 ML/MIN (>60)
[2020-08-12 11:07] LABS: Anion Gap 12.7 mEq/L (5-15); Calcium 9.1 mg/dl (8.4-10.2); Carbon Dioxide 30 mmol/L (22.0-30.0); Glucose 109 mg/dl (74-100)
[2020-08-12 12:27] LABS: Coronavirus 19 IgG Antibody Negative (Negative); Coronavirus 19 IgM Antibody Negative (Negative)
== END ==
PROVIDERS: Visit Provider Internal Medicine
DX: Z01.89 Encounter for other specified special examinations (principal); I45.10 Unspecified right bundle-branch block; R55 Syncope and collapse
CPT/HCPCS: 36415; 80048; 85025; 86328

== ENCOUNTER 2020-08-18 07:57 | Day surgery (SDC) | payer MEDICARE, MEDICAID, SELFPAY ==
[2020-08-18 08:02] VITALS: BMI 27.2
[2020-08-18 08:49] VITALS: BP 165/90; PULSE 94; RESP 20; TEMP 37.1; O2SAT 94
[2020-08-18 09:13] VITALS: BP 172/90; PULSE 100; RESP 20; O2SAT 100
[2020-08-18 09:20] LABS: Coronavirus 19 IgG Antibody Negative (Negative); Coronavirus 19 IgM Antibody Negative (Negative)
[2020-08-18 09:39] VITALS: BP 170/90; PULSE 62; RESP 20
--- NOTE | 2020-08-18 09:46 | HMH.LOOP ---
[facility] Loop Recorder Date: 08/18/20 Time: 10:00 Procedure Performed:: Explantation of loop recorder due to end-of-life indication Implantation of new loop recorder Indication:: Paroxysmal atrial fibrillation Bradycardia Technique:: Patient was brought to the cardiac Chair Upholsterer. After informed consent obtained, 1% lidocaine with epinephrine was used to anesthetize the site along the left anterior aspect of the chest near the sternal border at the site of the previous loop recorder insertion. Using a scalpel, an incision was made and using forceps the existing loop recorder was removed and then using the supplied preloaded apparatus, the new loop recorder was placed subcutaneously without difficulty. Following the deployment of the loop recorder interrogation of the device was performed to ensure appropriate voltage was being detected. Once this was verified (0.5 mV), Steri-Strips were placed over the incision and the patient was prepped to discharge home. Patient tolerated the procedure well with minimal discomfort. Impression:: Successful removal of end-of-life loop recorder with implantation of new loop recorder. Serial Number:: [id number] Plan:: Routine postop care
== END 2020-08-18 09:42 | disposition home or self-care (01) ==
LOC: CATHLAB 07:59
PROVIDERS: PCP Emergency Medicine; Visit Provider Internal Medicine
DX: I48.0 Paroxysmal atrial fibrillation (principal); Z45.09 Encounter for adjustment and management of other cardiac device; Z79.899 Other long term (current) drug therapy; R55 Syncope and collapse
CPT/HCPCS: 33285; 86328

== ENCOUNTER → 2020-10-06 13:23 | Outpatient (CLI) | payer MEDICARE, MEDICAID, SELFPAY ==
[2020-10-06 14:12] LABS: Chloride 101 mmol/L (98-107); Potassium 4.7 mmoL/L (3.5-5.1); Sodium 142 mmol/L (136-145)
[2020-10-06 14:15] LABS: Anion Gap 11.7 mEq/L (5-15); Blood Urea Nitrogen 12 mg/dl (7-17); Carbon Dioxide 34 mmol/L (22.0-30.0); Estimated Glomerular Filt Rate 61 ml/min (>60); GFR (African American) 74 ML/MIN (>60); Glucose 101 mg/dl (74-100)
[2020-10-06 14:19] LABS: Basophils % 0.8 % (0.1-2.0); Eosinophils # 0.1 K/mm3 (0.0-0.4); Eosinophils % 2.2 % (0.1-12.0); Hematocrit 40.6 % (37.0-47.0); Hemoglobin 12.4 g/dL (12.2-16.2); Lymphocytes # 1.6 K/mm3 (0.7-4.5); Lymphocytes % 37.6 % (10-50); Mean Corpuscular HGB Conc 30.5 g/dL (31.8-35.4); Mean Corpuscular Hemoglobin 22.4 pg (27.0-31.2); Mean Corpuscular Volume 73.5 fl (81-99); Mean Platelet Volume 8.8 fl (7.4-10.4); Monocytes # 0.3 K/mm3 (0.1-1.0); Monocytes % 7.1 % (1.7-9.3); Neutrophils # 2.3 K/mm3 (1.8-7.8); Neutrophils % 52.3 % (37.0-80.0); Platelet Count 129 K/mm3 (142-424); Red Blood Count 5.52 M/mm3 (4.20-5.40); White Blood Count 4.3 K/mm3 (4.8-10.8)
== END ==
PROVIDERS: Visit Provider Nurse Practitioner Family
DX: I10 Essential (primary) hypertension (principal); I48.0 Paroxysmal atrial fibrillation; Z01.810 Encounter for preprocedural cardiovascular examination
CPT/HCPCS: 36415; 80048; 85025

== ENCOUNTER → 2020-12-08 14:14 | Outpatient (CLI) | payer MEDICARE, MEDICAID, SELFPAY ==
[2020-12-08 14:40] LABS: Basophils % 0.8 % (0.1-2.0); Eosinophils # 0.1 K/mm3 (0.0-0.4); Eosinophils % 1.3 % (0.1-12.0); Lymphocytes # 0.8 K/mm3 (0.7-4.5); Lymphocytes % 21.1 % (10-50); Mean Corpuscular HGB Conc 27.9 g/dL (31.8-35.4); Mean Corpuscular Hemoglobin 19.5 pg (27.0-31.2); Mean Corpuscular Volume 70.1 fl (81-99); Mean Platelet Volume 10.8 fl (7.4-10.4); Monocytes # 0.3 K/mm3 (0.1-1.0); Neutrophils # 2.6 K/mm3 (1.8-7.8); Neutrophils % 69.7 % (37.0-80.0); Platelet Count 115 K/mm3 (142-424); Red Blood Count 2.92 M/mm3 (4.20-5.40); Red Cell Distribution Width 18.1 % (11.5-17.5); White Blood Count 3.7 K/mm3 (4.8-10.8)
[2020-12-08 14:54] LABS: Hemoglobin 5.7 g/dL (12.2-16.2)
[2020-12-08 14:55] LABS: Hematocrit 20.4 % (37.0-47.0)
[2020-12-08 16:07] LABS: Alanine Aminotransferase 14 U/L (12-78); Alkaline Phosphatase 76 U/L (38-126); Anion Gap 9.1 mEq/L (5-15); Aspartate Amino Transferase 21 U/L (14-36); Bilirubin,Direct 0.3 mg/dl (0.0-0.4); Bilirubin,Indirect 0.1 mg/dL (0.0-0.9); Bilirubin,Total 0.4 mg/dl (0.2-1.3); Bilirubin,Unconjugated 0.2 mg/dL (0.0-1.1); Blood Urea Nitrogen 18 mg/dl (7-17); Calcium 8.5 mg/dl (8.4-10.2); Carbon Dioxide 27 mmol/L (22.0-30.0); Chloride 107 mmol/L (98-107); Chol/HDL Ratio 3.4 (1-3.5); Cholesterol 100 mg/dl (140-200); Estimated Glomerular Filt Rate 70 ml/min (>60); GFR (African American) 85 ML/MIN (>60); Glucose 115 mg/dl (74-100); HDL Cholesterol 29 mg/dl (40-60); Potassium 4.1 mmoL/L (3.5-5.1); Sodium 139 mmol/L (136-145); Total Protein,Serum 6.6 g/dl (6.3-8.2); Triglycerides 76 mg/dl (30-150); VLDL Cholesterol 15 mg/dL (0-40)
[2020-12-08 16:27] LABS: Free T4 (Free Thyroxine) 1.17 ng/dl (0.78-2.19)
[2020-12-08 16:40] LABS: Thyroid Stimulating Hormone 2.26 uIU/mL (0.465-4.68)
== END ==
PROVIDERS: Visit Provider Urology
DX: E78.2 Mixed hyperlipidemia (principal); I10 Essential (primary) hypertension; I27.20 Pulmonary hypertension, unspecified; I48.0 Paroxysmal atrial fibrillation; I73.9 Peripheral vascular disease, unspecified; R00.2 Palpitations; R06.00 Dyspnea, unspecified; R29.898 Other symptoms and signs involving the musculoskeletal system; Z95.3 Presence of xenogenic heart valve
CPT/HCPCS: 36415; 80048; 80061; 80076; 84439; 84443; 85025

== ENCOUNTER 2020-12-08 14:55 | Inpatient (IN) | payer MEDICARE, MEDICAID, SELFPAY ==
[2020-12-08 14:55] VITALS: BP 144/53; PULSE 62; RESP 18; TEMP 36.9; O2SAT 100; BMI 26.6
--- NOTE | 2020-12-08 15:06 | HMH.EDGENADL ---
ED Disposition Clinical Impression: Anemia Qualifiers: Anemia type: unspecified type Qualified Code(s): D64.9 - Anemia, unspecified Fatigue Qualifiers: Fatigue type: unspecified Qualified Code(s): R53.83 - Other fatigue Disposition: Admitted As Inpatient Condition on Discharge: Fair - Critical Care Critical Care Time: No Attestation: On , the high probability of a clinically significant, sudden or life threatening deterioration of the following system(s) required my full and direct attention, intervention and personal management. The time I documented below is in addition to time spent performing reported procedures but includes the following listed in this critical care notation. Medical Decision Making - Medical Records Medical records reviewed: Yes: I reviewed the patient's medical records. - Flynn Inquiry Pt receiving controlled substance: No Vital Signs: 12/08/20 14:55 12/08/20 15:44 12/08/20 16:44 Temperature 98.4 F Temperature Source Oral Pulse Rate [Left Radial] 62 61 67 Respiratory Rate 18 Blood Pressure [Right Arm] 144/53 H 161/57 H 132/98 H Blood Pressure Mean [Right Arm] 83 91 109 Blood Pressure Source [Right Arm] Automatic Cuff Automatic Cuff Automatic Cuff Blood Pressure Position [Right Arm] Sitting Sitting Sitting 02 Sat by Pulse Oximetry 100 94 L 99 Oxygen Delivery Method Room Air Room Air Room Air - Lab Data Lab results reviewed: Yes: I reviewed the patient's lab results. Lab Results 12/08/20 15:55: Blood Type O Positive, Crossmatch (AHG) See Detail 12/08/20 15:59: WBC 3.3 L, RBC 2.91 L, Hct 20.2 L*, MCV 69.5 L, MCH 19.6 L, MCHC 28.2 L, RDW 18.1 H, Plt Count 158 D, MPV 10.0, Neut % (Auto) 65.9, Lymph % (Auto) 25.2, [place] % (Auto) 6.4, Eos % (Auto) 1.5, Baso % (Auto) 1.0, Neut # (Auto) 2.2, Lymph # (Auto) 0.8, [place] # (Auto) 0.2, Eos # (Auto) 0.1, Baso # (Auto) 0.0 12/08/20 15:59: PT 13.0 H, INR 1.19 H, APTT 20.1 L 12/08/20 15:59: Sodium 139, Potassium 4.4, Chloride 107, Carbon Dioxide 26, Anion Gap 10.4, BUN 20 H, Creatinine 0.80, Estimated Creat Clear 61, Estimated GFR 70, Est GFR ( Amer) 85, Glucose 116 H, Calcium 8.5, Total Bilirubin 0.6, AST 35 D, ALT 14, Alkaline Phosphatase 74, Total Protein 6.9, Albumin 4.1, Globulin 2.8, Albumin/Globulin Ratio 1.5 12/08/20 15:59: SARS-CoV-2 IgG Ab (Rapid) Negative, SARS-CoV-2 IgM Ab (Rapid) Negative Result diagrams: 12/08/20 15:59 12/08/20 15:59 Orders (Tests/Meds): ED MEDICATIONS Generic Name Dose Route Start Last Admin Trade Name Freq PRN Reason Stop Dose Admin Sodium Chloride 250 mls @ 25 mls/hr 12/08/20 16:45 Sod Chlor 0.9% 250ml Bag IV 12/09/20 16:44 .Q10H TALIA Sodium Chloride 3 ml 12/08/20 15:30 Sodium Chloride 3% 15ml Neb IH 01/07/21 15:29 ONCE PRN INDUCE SPUTUM COLLECTION ORDERS Category Date Time Status Packed Red Cells [Red Blood Cells] Stat K 12/08/20 15:55 Results Type and Screen Stat [facility] 12/08/20 15:55 Results Complete Blood Count Auto Diff Stat Lab 12/08/20 15:59 Results Medical Decision Narrative: Patient with history of GI bleeding, now on anticoagulation and new anemia. She is asymptomatic other than fatigue. No chest pain, shortness of breath or hemodynamic instability. Rectal exam reveals no profuse hematochezia or melena, Hemoccult pending. I discussed this case with Dr. Workman, on-call for Dr. Mathew and patient will be admitted for further management. General Adult HPI - General Stated complaint: blood count low, referred by benjamin Time Seen by Provider: 12/08/20 15:06 Mode of Arrival: Ambulatory Source of Information: Patient, Relative Limitations: No Limitations - History of Present Illness HPI narrative: This is a 75-year-old female with a past medical history significant for GAVE, previous anemia and GI bleeding, atrial fibrillation, recently placed on Xarelto she states about 3 months ago who presents to the emergency department for anemi
[2020-12-08 15:44] VITALS: BP 161/57; PULSE 61; O2SAT 94
[2020-12-08 16:09] LABS: Eosinophils # 0.1 K/mm3 (0.0-0.4); Eosinophils % 1.5 % (0.1-12.0); Lymphocytes # 0.8 K/mm3 (0.7-4.5); Lymphocytes % 25.2 % (10-50); Mean Corpuscular HGB Conc 28.2 g/dL (31.8-35.4); Mean Corpuscular Hemoglobin 19.6 pg (27.0-31.2); Mean Corpuscular Volume 69.5 fl (81-99); Monocytes # 0.2 K/mm3 (0.1-1.0); Monocytes % 6.4 % (1.7-9.3); Neutrophils # 2.2 K/mm3 (1.8-7.8); Neutrophils % 65.9 % (37.0-80.0); Platelet Count 158 K/mm3 (142-424); Red Blood Count 2.91 M/mm3 (4.20-5.40); Red Cell Distribution Width 18.1 % (11.5-17.5); White Blood Count 3.3 K/mm3 (4.8-10.8)
[2020-12-08 16:17] LABS: Hematocrit 20.2 % (37.0-47.0)
[2020-12-08 16:18] LABS: Chloride 107 mmol/L (98-107); Potassium 4.4 mmoL/L (3.5-5.1); Sodium 139 mmol/L (136-145)
[2020-12-08 16:21] LABS: Alanine Aminotransferase 14 U/L (12-78); Albumin Level 4.1 g/dl (3.5-5.0); Albumin/Globulin Ratio 1.5 (1.1-1.8); Alkaline Phosphatase 74 U/L (38-126); Anion Gap 10.4 mEq/L (5-15); Aspartate Amino Transferase 35 U/L (14-36); Bilirubin,Total 0.6 mg/dl (0.2-1.3); Blood Urea Nitrogen 20 mg/dl (7-17); Carbon Dioxide 26 mmol/L (22.0-30.0); Creatinine Clearance Estimated 61 mL/min (50-200); Estimated Glomerular Filt Rate 70 ml/min (>60); GFR (African American) 85 ML/MIN (>60); Globulin 2.8 g/dL (1.3-3.2); Total Protein,Serum 6.9 g/dl (6.3-8.2)
[2020-12-08 16:22] LABS: Calcium 8.5 mg/dl (8.4-10.2); Glucose 116 mg/dl (74-100)
[2020-12-08 16:31] LABS: Activated Partial Thrombo Time 20.1 seconds (23.6-34.0); INR 1.19 (0.9-1.1)
[2020-12-08 16:33] LABS: Coronavirus 19 IgG Antibody Negative (Negative); Coronavirus 19 IgM Antibody Negative (Negative)
[2020-12-08 16:44] VITALS: BP 132/98; PULSE 67; O2SAT 99
--- NOTE | 2020-12-08 16:47 | PC.NURSE ---
Advised lab that we needed 2 units of blood instead of 2. Giovanni advised pt had antibodies and it would have to be sent out
[2020-12-08 16:54] LABS: Hemoglobin 5.7 g/dL (12.2-16.2)
[2020-12-08 17:13] VITALS: BMI 27.7
[2020-12-08 17:19] LABS: Occult Blood,Stool Positive (Negative)
--- NOTE | 2020-12-08 17:22 | PC.NURSE ---
notified floor pt ready for admission
--- NOTE | 2020-12-08 17:39 | PC.NURSE ---
Pt arrived to the floor at this time.
[2020-12-08 17:43] VITALS: BP 132/98; PULSE 67; RESP 20; TEMP 36.9; O2SAT 100
[2020-12-08 17:53] VITALS: BP 158/74; PULSE 64; RESP 20; TEMP 36.4; O2SAT 96
[2020-12-08 20:00] VITALS: BP 116/46; PULSE 67; RESP 18; TEMP 36.4; O2SAT 97
[2020-12-09] VITALS (38 sets, daily range): BP systolic 103–193; BP diastolic 43–87; PULSE 16–70; RESP 16–20; TEMP 36.5–37.3; O2SAT 89–97; BMI 26.2
--- NOTE | 2020-12-09 03:50 | PC.NURSE ---
Pt is A&Ox4. Lung sounds CTA. No cough noted this shift. BLE present w/ +2 pitting edema. Pt was encouraged by this RN to elevate legs while laying in bed. Pt takes self to the bathroom w/ steady gait and balance. Pt has c/o about SOA during exertion, so pt has been encouraged to ring out for standby assistance to prevent falling. Pt continues to await blood for blood transfusion, antibody send out still pending. No other acute changes or complaints at this time.
--- NOTE | 2020-12-09 07:23 | HMH.PHAVTE ---
[facility] Pharmacy VTE Monitoring - Patient Demographics Admission date: 12/09/20 Report Date: 12/09/20 Time: 07:23 Allergies/Adverse Reactions: Patient Allergies codeine [CODEINE] Allergy (Unknown, Verified 12/08/20 13:41) I-RASH Height: 1.7 m Weight: 75.977 kg Patient Problems: Current Active Problems Anemia (Acute) Fatigue (Acute) - VTE Risk Labs: VTE Related Lab Results Hgb 5.7 g/dL (12.2-16.2) L* 12/08/20 15:59 Hct 20.2 % (37.0-47.0) L* 12/08/20 15:59 Plt Count 158 K/mm3 (142-424) D 12/08/20 15:59 PT 13.0 seconds (9.4-11.8) H 12/08/20 15:59 INR 1.19 (0.9-1.1) H 12/08/20 15:59 APTT 20.1 seconds (23.6-34.0) L 12/08/20 15:59 BUN 20 mg/dl (7-17) H 12/08/20 15:59 Creatinine 0.80 mg/dl (0.52-1.04) 12/08/20 15:59 Estimated Creat Clear 61 mL/min (50-200) 12/08/20 15:59 Was VTE Risk Assessment Performed: Yes VTE Score: 1 VTE Risk Level: Very Low Risk Clinical Trial Participant: No - Prophylaxis VTE Prophylaxis Ordered?: Yes Types of VTE Prophylaxis: TEDS Knee High
--- NOTE | 2020-12-09 10:34 | HMH.HP ---
*Admission Date: 12/09/20 *Chief complaint: Fatigue *History of present illness: 75-year-old female patient presented to the emergency department from [facility]. She had an appointment for increasing fatigue and shortness of breath, lab work was drawn hemoglobin was 5.7 she was instructed to go to the emergency department for further work-up. She reports being put on Xarelto for paroxysmal atrial fibrillation 3 months ago hemoglobin at that time was 12. She does report fatigue for the last couple months and within the last 2 to 3 weeks increasing shortness of breath she denies any chest pain dizziness fever/chills/body aches or nausea/vomiting/diarrhea. She denies having any visible blood in emesis or stool. Lab work in emergency department white blood cell count 3.3, hemoglobin 5.7, hematocrit 20.2, platelets 158. CBC unremarkable SARS-COV-2 IgG/IgM negative Occult blood positive 75-year-old female patient lying in bed resting quietly no respiratory distress noted, denies chest pain. Hypertensive at moment, cardiology to see and adjust medications. We will transfuse 2 units of packed red blood cells recheck H&H in 1 hour if still anemic will refuse 2 additional units [facility] History I have reviewed the patient's past medical history: Yes Medical History: Reports:: Anxiety, Atrial Fibrillation, Cancer (skin), Cardiomyopathy, Coronary Artery Disease, Depression, Gastroesophageal Reflux Disease(GERD), Hyperlipidemia, Hypertension, Palpitations, Valvular Heart Disease Denies:: Diabetes Mellitus Type 1, Diabetes Mellitus Type 2, Internal Pacemaker, Lung Disease, MRSA, Seizures *Have you ever received a pneumonia vaccine?: Yes *Have you received a flu vaccine this season?: No Other Medical History: Reports: Anemia, Arthritis. Denies: Blood Transfusion Reaction Laterality Cases: Right: Arthroscopy Knee, Arthroscopy Shoulder Other Surgeries: Yes: Angiogram, Cardiac Catheterization, Cardiac Surgery, Cholecystectomy, Colonoscopy, Hysterectomy-Total, Mitral Valve Replacement, Open Heart Surgery, Other Valve Replacement, Other. No: Pacemaker Amputation: No Fractures: No - *Social History Last grade of school completed: 11th or 12th Smoking Status: Never smoker Alcohol Intake: never Alcohol Intake Frequency:: other Substance Use Type: denies use *Occupational Status:: disabled Housing: house Household Members: none *Travel in the last 8 weeks: None - Psychiatric History Pschychiatric History:: Reports:: Anxiety, Depression Family Hx:: Heart Attack, Hypertension Review of Systems - Review of Systems Review of systems:: pertinent systems reviewed and negative unless documented below - Constitutional Reports fatigue, Reports lack of energy, Denies body ache(s), Denies fever(s) - Eyes Denies blurry vision, Denies change in vision - ENT Denies difficulty swallowing, Denies nosebleed, Denies nasal discharge - *Cardiovascular Reports shortness of breath, Denies chest pain - *Respiratory Reports shortness of breath, Denies chest congestion, Denies coughing up blood - *Gastrointestinal Denies abdominal pain, Denies coffee ground vomit, Denies bright, red blood in stools, Denies black, tarry stools - *Musculoskeletal Denies decreased muscle mass, Denies body aches - Integumentary/Breasts Denies redness, Denies yellowing of the skin - *Neurologic Reports abnormal speech, Denies confusion - Psychiatric Reports confusion, Denies abnormal sleep pattern - Endocrine Denies heat intolerance, Denies increased thirst - Hematologic/Lymphatic Denies easy bleeding, Denies easy bruising - Allergic/Immunologic Reports wheezing, Denies GI upset with certain foods Meds Home Medications Medication Instructions Recorded Confirmed Type cholecalciferol (vitamin D3) 25 1,000 unit PO DAILY 11/20/17 12/09/20 History mcg (1,000 unit) capsule citalopram 20 mg tablet 20 mg PO DAILY 11/20/17
--- NOTE | 2020-12-09 12:54 | PC.NURSE ---
PER LUCAS CHO, TRANSFUSE 2 UNITS PRBS, DO A ONE HOUR POST H&H THEN TO CALL HIM BACK.
[2020-12-09 14:43] LABS: Hematocrit 26.7 % (37.0-47.0)
[2020-12-09 14:50] LABS: Hemoglobin 7.7 g/dL (12.2-16.2)
--- NOTE | 2020-12-09 15:36 | HMH.CNCARD ---
History of Present Illness Consult date: 12/09/20 Requesting physician: Benito Mathew Consult reason: known to you Chief complaint: fatigue History of present illness: This is a 75-year-old white female who was admitted to the hospital with weakness and fatigue and found to be profoundly anemic. She did come into cardiology clinic yesterday complaining of this weakness and fatigue and had blood work and was found to have a hemoglobin of 5.7 at which point she was sent to the emergency department for further evaluation. The patient does have a history of previous anemia with GI bleeding and was diagnosed with gave disease. She states that she does have some shortness of breath with exertion secondary to her fatigue has been going on for approximately 3 weeks. She denies any chest pain or pressure. She denies any abdominal pain, melena or hematochezia. She denies any edema, fever, chills, nausea, vomiting, diarrhea, PND or orthopnea. She did have a positive fecal occult stool. Patient does have paroxysmal atrial fibrillation where she is in episodes of A. fib greater than 4 hours and was started on Xarelto. She has been on the Xarelto for approximately 3 months or so. This is currently being held secondary to her GI bleeding and anemia. [facility] History I have reviewed the patient's past medical history: Yes Medical History: Reports:: Anxiety, Atrial Fibrillation, Cancer (skin), Cardiomyopathy, Coronary Artery Disease, Depression, Gastroesophageal Reflux Disease(GERD), Hyperlipidemia, Hypertension, Palpitations, Valvular Heart Disease Denies:: Diabetes Mellitus Type 1, Diabetes Mellitus Type 2, Internal Pacemaker, Lung Disease, MRSA, Seizures *Have you ever received a pneumonia vaccine?: Yes *Have you received a flu vaccine this season?: No Other Medical History: Reports: Anemia, Arthritis. Denies: Blood Transfusion Reaction Laterality Cases: Right: Arthroscopy Knee, Arthroscopy Shoulder Other Surgeries: Yes: Angiogram, Cardiac Catheterization, Cardiac Surgery, Cholecystectomy, Colonoscopy, Hysterectomy-Total, Mitral Valve Replacement, Open Heart Surgery, Other Valve Replacement, Other. No: Pacemaker Amputation: No Fractures: No - *Social History Last grade of school completed: 11th or 12th Smoking Status: Never smoker Alcohol Intake: never Alcohol Intake Frequency:: other Substance Use Type: denies use *Occupational Status:: disabled Housing: house Household Members: none *Travel in the last 8 weeks: None - Psychiatric History Pschychiatric History:: Reports:: Anxiety, Depression Family Hx:: Heart Attack, Hypertension Meds Home Medications Medication Instructions Recorded Confirmed Type cholecalciferol (vitamin D3) 25 1,000 unit PO DAILY 11/20/17 12/09/20 History mcg (1,000 unit) capsule citalopram 20 mg tablet 20 mg PO DAILY 11/20/17 12/09/20 History vitamin B complex 1 tab PO DAILY 11/20/17 12/09/20 History aspirin 81 mg tablet,delayed 81 mg PO DAILY tab 04/13/18 12/09/20 History release bupropion HCl 150 mg 24 hr tablet, 150 mg PO DAILY tab 12/31/19 12/08/20 History extended release Sucralfate [Sucralfate 1gm 1 g PO TID 04/29/20 12/08/20 History Tab] bisoprolol fumarate 10 mg tablet 10 mg PO DAILY tab 08/24/20 12/09/20 History lansoprazole 30 mg capsule,delayed 30 mg PO DAILY cap 10/12/20 12/08/20 History release ropinirole 2 mg tablet 2 mg PO HS tab 10/12/20 12/09/20 History gabapentin 600 mg tablet 600 mg PO QID #120 tab 12/04/20 12/08/20 Rx oxycodone-acetaminophen 10 mg-325 1 tab PO QID PRN 30 Days #120 tab 12/04/20 12/09/20 Rx mg tablet Rivaroxaban [Xarelto] 20 mg PO DAILY 12/08/20 12/08/20 History lisinopriL [Prinivil 10mg Tablet] 10 mg PO DAILY 12/08/20 12/08/20 History ondansetron HCl 8 mg tablet 8 mg PO BIDP PRN tab 12/08/20 12/09/20 History ALPRAZolam [Xanax 0.5mg tab] 0.5 mg PO TIDP PRN 12/09/20 12/09/20 History estradioL [Estradiol] 0.25 mg PO DAILY 12/09/20 12/09/20 History
--- NOTE | 2020-12-09 15:45 | CA_ITS ---
APPROVED REPORT EXAM: Comprehensive 2D, Doppler, and color-flow Echocardiogram Fur Finisher Tailor: Jacque Marquez RCS, RVS Ht: 5 ft 6 in Wt: 167lbs BSA: 1.85 BP: 152/75 mmHg Indications: Anemia-GI Bleed, Aov replacement, RVE, PHTN, RAY, MR, TR, 2D Dimensions IVSd 1.12 cm F: 0.6-1.0 LVEF (Visual) 58.80 % PWd 1.15 cm F: 0.6 - 1.0 LA Volume 109.80 mL LVDd 4.31 cm F: 3.9 - 5.3 LA Volume Index 59.35 mL/m2 (M/F) 16-34 LVDs 2.98 cm F: 2.2 - 3.5 Aortic Root 3.14 cm F: 2.7 - 3.3 Left Atrium 5.10 cm F: 2.7 - 3.8 RVID Base (AP4) 3.90 cm (M/F) 2.5-4.1 LVOT 1.69 cm (M/F) 1.5-2.5 M-Mode Dimensions RVDd 3.90 cm (0.9-2.6) LA Diam 4.50 cm (1.9-4.0) Ao Diam 3.07 cm (2.0-3.7) LV Diastology E Decel Time 153.00 (160-240 msec) E/A Ratio 1.9 MED E' 7.00 (< 7 cm/sec) MED A' 6.40 cm/s E'/MED E' Ratio 23.26 (>14) LAT E' 11.10 (<10 cm/sec) LAT A' 7.00 cm/s E/LAT E' Ratio 14.67 (>14) Pulm Vein s 67.00 cm/sec Aortic Valve LVOT Max 107.00 (70-110 cm/s) LVOT VTI 24.65 cm AoV Peak Anshul. 422.00 (50-130 cm/s) AO Peak GR. 71.40 mmHg AO Mean GR. 40.90 (<5 mmHg) AO VTI 97.00 (18-25 cm) HERIBERTO (VTI) 0.57 (2.5-4.5 cm2) Mitral Valve MV E Max Anshul. 163.00 (40-130 cm/s) MV A Velocity 86.00 (40-130 cm/s) E/A Ratio 1.90 MV Decel. Time 153.00 (160-240 ms) MV Mean Gr. 4.20 (<2mmHg) MV PHT 45.00 ms Pulmonary Valve PV Peak Velocity 93.00 (50-150 cm/s) Tricuspid Valve TR P. Velocity 361.00 cm/s RAP Estimate 10.00 mmHg RVSP 62.10 mmHg Left Ventricle Left atrium is mildly enlarged, left ventricle is normal size, mild concentric left ventricular hypertrophy, visually estimated ejection fraction 55% with no regional wall motion abnormality, diastolic parameters are inconclusive. Right Ventricle Right atrium and right ventricle are mildly enlarged with normal contractility. Aortic Valve There is bioprosthetic valve in the aortic position, the valve is well-seated, leaflets are not well visualized, there is significantly increased velocities seen across the prosthetic valve up to 4.5 m/s, resulting in the mean gradient across aortic valve is 44 mmHg, this represents severe prosthetic valve stenosis, however during this study patient has severe anemia with hemoglobin less than 6. A repeat study is recommended to evaluate prosthetic valve after anemia is corrected. There is no aortic insufficiency. Mitral Valve Mitral valve leaflets are minimally thickened, there is mild mitral regurgitation. Tricuspid Valve Tricuspid valve grossly normal, there is mild tricuspid regurgitation, tricuspid regurgitation jet velocity is inadequate for calculation of the right ventricular systolic pressure. Pulmonic Valve Pulmonic valve is poorly visualized. Great Vessels Aortic root is normal size. Pericardium No significant pericardial effusion noted. Conclusion 1. Mildly enlarged left atrium, normal left ventricular size, mild concentric left ventricular hypertrophy, visually estimated ejection fraction 55% with no regional wall motion abnormality, diastolic parameters are inconclusive. 2. Bioprosthetic valve in the aortic position as described above, there is significantly increased mean gradient of 44 mmHg across the prosthetic valve raising the concerns for presence of severe prosthetic valve stenosis, however during the study patient has severe anemia with hemoglobin less than 6. A repeat study after anem
--- NOTE | 2020-12-09 19:05 | PC.NURSE ---
PT HAD A GOOD SHIFT. PT TOLERATED FIRST 2 PRBC UNITS. PT RECEIVING THIRD UNIT NOW. VSS. WILL CONT TO MONITOR.
[2020-12-10] VITALS (12 sets, daily range): BP systolic 114–170; BP diastolic 42–69; PULSE 50–70; RESP 17–20; TEMP 36.7–37.2; O2SAT 91–96; BMI 26.2
[2020-12-10 01:53] LABS: Hematocrit 29.6 % (37.0-47.0)
--- NOTE | 2020-12-10 05:06 | PC.NURSE ---
Pt is A&Ox4. Lung sounds CTA. TEDS in place to BLE. Pt is independent and has had SBA at times and tolerated activity very well. Pt denies any pain, N/V/D, SOB, dyspnea, or dizziness. Completed PRBC infusion this shift, pt received a combined total of 4 units and 1hr post h/h was 9.0 & 29.6. Pt has had a few upper 80s SaO2 and fingertips were noted to be cool and pt was actively receiving blood at that time. After administration, SaO2 have been >93% through remainder of shift. No other acute complaints at this time. Pt able to rest well during the night. Call light within reach.
[2020-12-10 06:49] LABS: Basophils % 0.4 % (0.1-2.0); Eosinophils # 0.1 K/mm3 (0.0-0.4); Eosinophils % 1.6 % (0.1-12.0); Hematocrit 29.4 % (37.0-47.0); Hemoglobin 8.8 g/dL (12.2-16.2); Lymphocytes # 0.8 K/mm3 (0.7-4.5); Lymphocytes % 16.5 % (10-50); Mean Corpuscular Hemoglobin 22.7 pg (27.0-31.2); Mean Corpuscular Volume 75.8 fl (81-99); Mean Platelet Volume 9.2 fl (7.4-10.4); Monocytes # 0.4 K/mm3 (0.1-1.0); Monocytes % 8.3 % (1.7-9.3); Neutrophils # 3.5 K/mm3 (1.8-7.8); Neutrophils % 73.3 % (37.0-80.0); Platelet Count 139 K/mm3 (142-424); Red Blood Count 3.88 M/mm3 (4.20-5.40); Red Cell Distribution Width 19.1 % (11.5-17.5); White Blood Count 4.8 K/mm3 (4.8-10.8)
--- NOTE | 2020-12-10 06:53 | ECG_ITS ---
APPROVED REPORT Exam: Resting ECG HR:56 bpm ECG Measurements Heart Rate 56 AXES MA 276 P 72 QRSd 112 QRS -35 QT 486 T 12 QTc 468 Conclusion Sinus bradycardia with sinus arrhythmia with 1st degree AV block Left axis deviation Incomplete right bundle branch block Abnormal ECG Electronically signed by : Elian Norris, 12/10/2020 21:15:41
[2020-12-10 06:56] LABS: Chloride 106 mmol/L (98-107); Sodium 137 mmol/L (136-145)
[2020-12-10 06:57] LABS: Potassium 4.1 mmoL/L (3.5-5.1)
[2020-12-10 07:00] LABS: Anion Gap 8.1 mEq/L (5-15); Blood Urea Nitrogen 14 mg/dl (7-17); Calcium 8.4 mg/dl (8.4-10.2); Carbon Dioxide 27 mmol/L (22.0-30.0); Creatinine Clearance Estimated 60 mL/min (50-200); Estimated Glomerular Filt Rate 82 ml/min (>60); GFR (African American) 99 ML/MIN (>60); Glucose 101 mg/dl (74-100)
--- NOTE | 2020-12-10 08:30 | PC.NURSE ---
Report received from Abigail VILA.
--- NOTE | 2020-12-10 08:55 | PC.NURSE ---
Pt. arrived to room 279 via wheelchair.
--- NOTE | 2020-12-10 10:20 | HMH.PNCARD ---
Subjective Date: 12/10/20 Time: 10:15 Principal diagnosis: PAfib, GI bleed Interval history: This is a 75-year-old white female who was admitted to the hospital with weakness and fatigue. She was found to be profoundly anemic with a hemoglobin of 5.7. She has been transfused with 4 units of packed red blood cells and her hemoglobin is up to 8.8 today. She states that her shortness of breath with exertion has significantly improved as well as her fatigue and she is feeling much better now. She denies any chest pain or pressure. She denies any lower extremity edema. She denies any fever, chills, nausea, vomiting, diarrhea, PND or orthopnea. The patient was started on sotalol yesterday for paroxysmal atrial fibrillation in order to leave her off of anticoagulation secondary to her GI bleed. She has tolerated this medication well and her QTc interval has not significantly changed. She does have a GI consult with Dr. Hayes ordered. Exam Vital signs and Labs for Last 24 Hours: Temp Pulse Resp BP Pulse Ox 98.6 F 60 18 127/49 L 92 L 12/10/20 09:00 12/10/20 09:00 12/10/20 09:00 12/10/20 09:00 12/10/20 09:00 Laboratory Results - last 24 hr 12/08/20 15:55: Blood Type O Positive, Antibody Screen Positive, Crossmatch (AHG) See Detail 12/09/20 14:20: Hgb 7.7 L* D, Hct 26.7 L 12/10/20 01:40: Hgb 9.0 L D, Hct 29.6 L 12/10/20 06:34: WBC 4.8 D, RBC 3.88 L D, Hgb 8.8 L, Hct 29.4 L, MCV 75.8 L, MCH 22.7 L, MCHC 30.0 L, RDW 19.1 H, Plt Count 139 L, MPV 9.2, Neut % (Auto) 73.3, Lymph % (Auto) 16.5, Douglas % (Auto) 8.3, Eos % (Auto) 1.6, Baso % (Auto) 0.4, Neut # (Auto) 3.5, Lymph # (Auto) 0.8, Douglas # (Auto) 0.4, Eos # (Auto) 0.1, Baso # (Auto) 0.0 12/10/20 06:34: Sodium 137, Potassium 4.1, Chloride 106, Carbon Dioxide 27, Anion Gap 8.1, BUN 14 D, Creatinine 0.70, Estimated Creat Clear 60, Estimated GFR 82, Est GFR ( Amer) 99, Glucose 101 H, Calcium 8.4 I & O for Last 24 hours: Intake & Output 12/07/20 12/08/20 12/09/20 12/10/20 23:59 23:59 23:59 23:59 Intake Total 2295 / 2295 878 / 878 Balance 2295 / 2295 878 / 878 Weight 177 lb 4 oz 167 lb 8 oz 167 lb Narrative: EKG today shows sinus bradycardia with a rate of 56, first-degree AV block, left axis deviation and incomplete right bundle branch block. Her QTc interval is 468 ms which is only up from 460 ms yesterday. Telemetry strip shows sinus rhythm with a rate of 63. - Constitutional no acute distress, average body habitus - *Routine HEENT Exam Head: Present: normocephalic, atraumatic Eye: Present: EOMI, PERRL ENT: Present: mucous membranes moist - *Routine Neck Exam Present: supple, full ROM, normal carotid upstroke. Absent: JVD, carotid bruit, lymphadenopathy - *Routine Respiratory Exam Present: CTA bilaterally - *Routine Cardiovascular Exam Present: RRR, Normal S1, Normal S2, murmur - *Routine Abdominal Exam Present: soft, normoactive bowel sounds. Absent: tenderness, distended - *Routine Extremities Exam Present: full ROM, pulses intact, normal capillary refill. Absent: cyanosis, clubbing, edema - *Routine Skin Exam Present: intact, warm. Absent: erythema, rash - *Routine Neurological Exam Present: alert, oriented X3, CN II-XII intact. Absent: sensory deficit, motor deficit Progress Note: A&P (1) PAF (paroxysmal atrial fibrillation) Status: Chronic (2) Anemia Status: Acute (3) Fatigue Status: Acute (4) GI bleed Status: Acute (5) SOB (shortness of breath) Status: Acute (6) HTN (hypertension) Status: Chronic (7) Palpitations Status: Chronic (8) Pulmonary hypertension Status: Chronic (9) History of aortic valve replacement with bioprosthetic valve Status: Chronic (10) Mixed hyperlipidemia Status: Chronic (11) Hypertensive cardiomegaly without heart failure Status: Chronic Assessment and Plan for All Diagnoses:: Plan: 1. Patient was admitted to the hospital with profound
--- NOTE | 2020-12-10 11:04 | HMH.ACPN2 ---
Internal Medicine - PN: Subj *Date: 12/10/20 *Time: 08:05 Interval history: pt states she feels much better today. Exam Vital signs and Labs for Last 24 Hours: Temp Pulse Resp BP Pulse Ox 98.6 F 60 18 127/49 L 92 L 12/10/20 09:00 12/10/20 09:00 12/10/20 09:00 12/10/20 09:00 12/10/20 09:00 Laboratory Results - last 24 hr 12/08/20 15:55: Blood Type O Positive, Antibody Screen Positive, Crossmatch (AHG) See Detail 12/09/20 14:20: Hgb 7.7 L* D, Hct 26.7 L 12/10/20 01:40: Hgb 9.0 L D, Hct 29.6 L 12/10/20 06:34: WBC 4.8 D, RBC 3.88 L D, Hgb 8.8 L, Hct 29.4 L, MCV 75.8 L, MCH 22.7 L, MCHC 30.0 L, RDW 19.1 H, Plt Count 139 L, MPV 9.2, Neut % (Auto) 73.3, Lymph % (Auto) 16.5, Moca % (Auto) 8.3, Eos % (Auto) 1.6, Baso % (Auto) 0.4, Neut # (Auto) 3.5, Lymph # (Auto) 0.8, Moca # (Auto) 0.4, Eos # (Auto) 0.1, Baso # (Auto) 0.0 12/10/20 06:34: Sodium 137, Potassium 4.1, Chloride 106, Carbon Dioxide 27, Anion Gap 8.1, BUN 14 D, Creatinine 0.70, Estimated Creat Clear 60, Estimated GFR 82, Est GFR ( Amer) 99, Glucose 101 H, Calcium 8.4 I & O for Last 24 hours: Intake & Output 12/07/20 12/08/20 12/09/20 12/10/20 11:59 11:59 11:59 11:59 Intake Total 970 / 970 2203 / 2203 Balance 970 / 970 2203 / 2203 Weight 167 lb 8 oz 167 lb - Constitutional no acute distress - *Routine HEENT Exam Head: Present: normocephalic Eye: Present: PERRL ENT: Present: mucous membranes moist - *Routine Neck Exam Present: supple. Absent: lymphadenopathy - *Routine Respiratory Exam Present: CTA bilaterally - *Routine Cardiovascular Exam Present: RRR, murmur - *Routine Abdominal Exam Present: soft, normoactive bowel sounds. Absent: tenderness - *Routine Extremities Exam Absent: cyanosis, clubbing, edema - *Routine Skin Exam Present: warm. Absent: rash - *Routine Neurological Exam Present: alert, oriented X3 - Routine Psychiatric Exam Present: normal affect Assessment and Plan (1) PAF (paroxysmal atrial fibrillation) Status: Chronic Category: Medical Code(s): I48.0 - Paroxysmal atrial fibrillation (2) Anemia Status: Acute Qualifiers: Anemia type: unspecified type Qualified Code(s): D64.9 - Anemia, unspecified Category: Medical Code(s): D64.9 - Anemia, unspecified (3) Fatigue Status: Acute Qualifiers: Fatigue type: unspecified Qualified Code(s): R53.83 - Other fatigue Category: Medical Code(s): R53.83 - Other fatigue (4) GI bleed Status: Acute Category: Medical Code(s): K92.2 - Gastrointestinal hemorrhage, unspecified (5) SOB (shortness of breath) Status: Acute Category: Medical Code(s): R06.02 - Shortness of breath (6) HTN (hypertension) Status: Chronic Qualifiers: Hypertension type: essential hypertension Qualified Code(s): I10 - Essential (primary) hypertension Category: Medical Code(s): I10 - Essential (primary) hypertension (7) Palpitations Status: Chronic Category: Medical Code(s): R00.2 - Palpitations (8) Pulmonary hypertension Status: Chronic Category: Medical Code(s): I27.20 - Pulmonary hypertension, unspecified (9) History of aortic valve replacement with bioprosthetic valve Status: Chronic Category: Surgical Code(s): Z95.3 - Presence of xenogenic heart valve (10) Mixed hyperlipidemia Status: Chronic Category: Medical Code(s): E78.2 - Mixed hyperlipidemia (11) Hypertensive cardiomegaly without heart failure Status: Chronic Category: Medical Code(s): I11.9 - Hypertensive heart disease without heart failure - Assessment and plan all Dx Assessment and Plan for all problems:: rounded with dr neus all order per dr blair consult gi consult cardiology
--- NOTE | 2020-12-10 16:41 | PC.NURSE ---
Routine reassessment completed. no acute changes noted from previous assessment. Lungs remain CTA, heart monitor remains in place. slight mumur noted on auscultation. BS present x4 quad. pt. denies pain. no edema noted. Pt. has done well throughout the shift, and is tolerating cardiac diet well, will continue to monitor.
--- NOTE | 2020-12-10 19:12 | PC.NURSE ---
Report given to Tobin Ybarra RN.
--- NOTE | 2020-12-10 20:50 | PC.NURSE ---
WITH DOING PT ASSESSMENT ,AKASH HOSE REMOVED TO ASSESS PT LEGS,SOME VARICOSE VEINS PRESENT,LEAVING THEM OFF FOR ABOUT 15 MINS,WHILE PT NIGHT MEDICINES BEING GOTTEN,PT LUNGS CLEAR TO ASCULTATE THROUGHTOUT,PT DENIES ANY SOB.NORMAL BOWEL SOUNDS X 4 QUADS,PT REPORTS EARLIER TODAY AROUND 1200 SHE HAD ANOTHER BOWEL MOVEMENT AND IT WAS COMPLETLY BLACK,VOIDING WELL.V/S GOOD,PT HAS A PEARL DIGGER ON.WHICH 2ND FLOOR IS MONITORING,PT DENIES ANY PAIN AT THIS TIME.WILL CONTINUE TO MONITOR
[2020-12-11] VITALS (19 sets, daily range): BP systolic 113–167; BP diastolic 39–69; PULSE 49–66; RESP 16–18; TEMP 36.4–37.2; O2SAT 90–94
--- NOTE | 2020-12-11 04:20 | PC.NURSE ---
PT HAS SLEPT WELL TONIGHT,LUNGS CLEAR THROUGHTOUT,RESP.EVEN AND UNLABORED,NORMAL BOWEL SOUNDS X4 QUADS.B/P 123/39,P-57,R-18,T-99.0.PT DENIES ANY SOB,DENIES ANY PAIN.WILL CONTINUE TO MONITOR
--- NOTE | 2020-12-11 06:35 | ECG_ITS ---
APPROVED REPORT Exam: Resting ECG HR:56 bpm ECG Measurements Heart Rate 56 AXES MD 268 P 57 QRSd 114 QRS -44 QT 488 T 36 QTc 470 Conclusion Sinus bradycardia with 1st degree AV block Left axis deviation Cannot rule out Anterior infarct, age undetermined Abnormal ECG Electronically signed by : Elian Norris, 12/11/2020 15:58:31
[2020-12-11 06:56] LABS: Basophils % 1.1 % (0.1-2.0); Eosinophils # 0.1 K/mm3 (0.0-0.4); Eosinophils % 2.8 % (0.1-12.0); Hematocrit 31.6 % (37.0-47.0); Hemoglobin 9.4 g/dL (12.2-16.2); Lymphocytes % 25.7 % (10-50); Mean Corpuscular HGB Conc 29.6 g/dL (31.8-35.4); Mean Corpuscular Hemoglobin 22.9 pg (27.0-31.2); Mean Corpuscular Volume 77.3 fl (81-99); Mean Platelet Volume 9.7 fl (7.4-10.4); Monocytes # 0.4 K/mm3 (0.1-1.0); Monocytes % 9.7 % (1.7-9.3); Neutrophils # 2.2 K/mm3 (1.8-7.8); Neutrophils % 60.7 % (37.0-80.0); Platelet Count 178 K/mm3 (142-424); Red Blood Count 4.09 M/mm3 (4.20-5.40); Red Cell Distribution Width 20.1 % (11.5-17.5); White Blood Count 3.7 K/mm3 (4.8-10.8)
[2020-12-11 07:05] LABS: Chloride 105 mmol/L (98-107); Potassium 3.9 mmoL/L (3.5-5.1); Sodium 138 mmol/L (136-145)
[2020-12-11 07:08] LABS: Anion Gap 7.9 mEq/L (5-15); Blood Urea Nitrogen 16 mg/dl (7-17); Calcium 8.8 mg/dl (8.4-10.2); Carbon Dioxide 29 mmol/L (22.0-30.0); Creatinine Clearance Estimated 60 mL/min (50-200); Estimated Glomerular Filt Rate 70 ml/min (>60); GFR (African American) 85 ML/MIN (>60); Glucose 104 mg/dl (74-100)
--- NOTE | 2020-12-11 08:10 | HMH.PNCARD ---
Subjective Date: 12/11/20 Time: 08:10 Principal diagnosis: PAfib, GI bleed Interval history: 75-year-old white female in bed in no acute distress. Still with some dark bloody bowel movements. Nursing relates hemoglobin 9.4 this morning EKG is sinus with first-degree AV block and QTC of 470 ms. Exam Vital signs and Labs for Last 24 Hours: Temp Pulse Resp BP Pulse Ox 99.0 F 57 L 18 123/39 L 92 L 12/11/20 04:17 12/11/20 04:17 12/11/20 04:17 12/11/20 04:17 12/11/20 04:17 Laboratory Results - last 24 hr 12/08/20 15:55: Crossmatch (AHG) See Detail 12/11/20 06:20: WBC 3.7 L, RBC 4.09 L, Hgb 9.4 L, Hct 31.6 L, MCV 77.3 L, MCH 22.9 L, MCHC 29.6 L, RDW 20.1 H, Plt Count 178 D, MPV 9.7, Neut % (Auto) 60.7, Lymph % (Auto) 25.7, [place] % (Auto) 9.7 H, Eos % (Auto) 2.8, Baso % (Auto) 1.1, Neut # (Auto) 2.2, Lymph # (Auto) 1.0, [place] # (Auto) 0.4, Eos # (Auto) 0.1, Baso # (Auto) 0.0 12/11/20 06:20: Sodium 138, Potassium 3.9, Chloride 105, Carbon Dioxide 29, Anion Gap 7.9, BUN 16, Creatinine 0.80, Estimated Creat Clear 60, Estimated GFR 70, Est GFR ( Amer) 85, Glucose 104 H, Calcium 8.8 I & O for Last 24 hours: Intake & Output 12/08/20 12/09/20 12/10/20 12/11/20 11:59 11:59 11:59 11:59 Intake Total 970 / 970 2203 / 2203 480 / 480 Balance 970 / 970 2203 / 2203 480 / 480 Weight 167 lb 8 oz 167 lb - Constitutional no acute distress - *Routine HEENT Exam Head: Present: normocephalic Eye: Present: EOMI, PERRL ENT: Present: mucous membranes moist - *Routine Neck Exam Present: supple. Absent: lymphadenopathy - *Routine Respiratory Exam Present: CTA bilaterally - *Routine Cardiovascular Exam Present: RRR, murmur - *Routine Abdominal Exam Present: soft, normoactive bowel sounds. Absent: tenderness - *Routine Extremities Exam Absent: cyanosis, clubbing, edema - *Routine Skin Exam Present: warm. Absent: rash - *Routine Neurological Exam Present: alert, oriented X3 Progress Note: A&P (1) PAF (paroxysmal atrial fibrillation) Status: Chronic Assessment and plan: Continue to hold Xarelto due to GI bleed/GAVE syndrome Maintaining sinus rhythm on sotalol therapy. Loop recorder in place which will help with monitoring. (2) Anemia Status: Acute Assessment and plan: Improved to 9.4 after transfusion. (3) Fatigue Status: Acute (4) GI bleed Status: Acute Assessment and plan: GI evaluation with possible endoscopy later today. (5) SOB (shortness of breath) Status: Acute (6) HTN (hypertension) Status: Chronic (7) Palpitations Status: Chronic (8) Pulmonary hypertension Status: Chronic (9) History of aortic valve replacement with bioprosthetic valve Status: Chronic Assessment and plan: Plan outpatient echo in the future once hemoglobin is maintained above 10. (10) Mixed hyperlipidemia Status: Chronic (11) Hypertensive cardiomegaly without heart failure Status: Chronic Assessment and Plan for All Diagnoses:: Clinically stable from a cardiac standpoint patient could be discharged home when GI evaluation complete and PCP is ready. Follow-up in our office in 1 to 2 weeks with hemoglobin/hematocrit.
--- NOTE | 2020-12-11 10:30 | PC.NURSE ---
Pt. to EGD via wheelchair accompanied by surgical staff.
--- NOTE | 2020-12-11 11:32 | PC.NURSE ---
Pt. remains off the unit with surgical staff.
--- NOTE | 2020-12-11 11:36 | P.PN_ITS ---
[facility] Anesthesia Checklist - Patient Identification Patient Identification: Arm Band - Structural Data Admitted From: Inpatient Planned Operative Procedure/s: egd Consent for Planned Operative Procedure(s) Verified: Yes Verified Documents: Surgical Consent, History and Physical - NPO Status Verified Time NPO: 00:00 - Additional verifications Anesthesia Reactions: No Hx Blood Transfusions: Yes Blood Transfusion Reaction: No - Airway Assessment C-Spine Mobility Assessed: Yes (mp2) TMJ Mobility Assessed: Yes Dentition: Poor Dentition - Neurological Assessment Level of Consciousness: Awake, Alert - Anesthesia Plan Anesthesia Risk discussed: Yes Anesthesia Plan: Verified ASA Class: III Anesthesia Type: MAC [facility] History I have reviewed the patient's past medical history: Yes Medical History: Reports:: Anxiety, Atrial Fibrillation, Cancer (skin), Cardiomyopathy, Coronary Artery Disease, Depression, Gastroesophageal Reflux Disease(GERD), Hyperlipidemia, Hypertension, Palpitations, Valvular Heart Disease Denies:: Diabetes Mellitus Type 1, Diabetes Mellitus Type 2, Internal Pacemaker, Lung Disease, MRSA, Seizures *Have you ever received a pneumonia vaccine?: Yes *Have you received a flu vaccine this season?: No Other Medical History: Reports: Anemia, Arthritis. Denies: Blood Transfusion Reaction Anesthesia experience/problems:: nac Laterality Cases: Right: Arthroscopy Knee, Arthroscopy Shoulder Other Surgeries: Yes: Angiogram, Cardiac Catheterization, Cardiac Surgery, Cholecystectomy, Colonoscopy, Hysterectomy-Total, Mitral Valve Replacement, Open Heart Surgery, Other Valve Replacement, Other. No: Pacemaker Amputation: No Fractures: No - *Social History Last grade of school completed: 11th or 12th Smoking Status: Never smoker Alcohol Intake: never Alcohol Intake Frequency:: other Substance Use Type: denies use *Occupational Status:: disabled Housing: house Household Members: none *Travel in the last 8 weeks: None - Psychiatric History Pschychiatric History:: Reports:: Anxiety, Depression Family Hx:: Heart Attack, Hypertension
--- NOTE | 2020-12-11 11:40 | P.PCN_ITS ---
[facility] Procedure Note Procedure Note:: Upper Endoscopy Procedure Report: Esophagogastroduodenoscopy with cold biopsies and APC ablation/coagulation Endoscopost: Hiro Hayes II, MD Referring Physician: Benito Mathew MD/Gadiel CAMPA Date of Procedure: December 11, 2020 Equipment: Olympus GIF 180 standard upper endoscope Sedation: MAC sedation Indications: Mrs. Bahena is a 75-year-old female with a history of GAVE (gastric antral vascular ectasias) which were treated previously by Dr. Kami Rahman at [facility]. The patient has had recurrent bleeding with melanotic stools over the last couple of weeks. She had been on Xarelto for paroxysmal atrial fibrillation. The patient's initial hemoglobin was 5.7 and hematocrit 20.2. She was given blood transfusion. She was fecal Hemoccult positive. She does state that her last colonoscopy was more than 5 years ago. She reports no history of cirrhosis. Procedure: Prior to the procedure, a history and physical exam was performed, and patient's medications and allergies were reviewed. The risks, benefits and alternatives of the sedation and procedure were discussed with the patient. All questions were answered and informed consent was obtained. The patient was brought to the procedure room. Patient identification and proposed procedure were verified by the physician and the nurse. The patient was placed in a left lateral decubitus position and the scope was passed under direct vision. Throughout the procedure, the patient's blood pressure, pulse, and oxygen saturations were monitored continuously. The upper GI endoscopy was accomplished without difficulty. The patient tolerated the procedure well. Findings: The scope was passed directly into the upper esophagus and advanced to the third portion of the duodenum. The post bulbar duodenum and duodenal bulb were normal with normal mucosa and conniventes. The scope was withdrawn through a normal duodenal bulb and pylorus into the stomach. There were scant AVMs/angiodysplasias in the antrum consistent with very mild GAVE. All of the AVMs were coagulated/ablated using the APC argon plasma director of public health. There was some mild chronic gastritis of the body and fundus and cold biopsies were obtained. Upon retroflexion there was a small 2 cm hiatal hernia without Juanjo's erosions. There was no gastric varices. The scope was then withdrawn into the esophagus. There was no evidence of reflux esophagitis or Garay's. The remainder of the esophageal mucosa was normal. Impression: 1. Mild GAVE status post APC ablation 2. Mild chronic gastritis Plan: I am not fully convinced that this GAVE is entirely responsible for her profound anemia. She is Hemoccult positive. I would recommend outpatient colonoscopy. If her colonoscopy is normal, I would then consider video capsule enteroscopy (PillCam).
--- NOTE | 2020-12-11 12:25 | PC.NURSE ---
Report received from post op RN.
--- NOTE | 2020-12-11 12:30 | PC.NURSE ---
Pt. returned to room 279 via stretcher.
--- NOTE | 2020-12-11 12:56 | PC.NURSE ---
Pt. returned to room 279 via stretcher.
--- NOTE | 2020-12-11 13:36 | HMH.DCSUM ---
General - General Admission date:: 12/08/20 Discharge date: 12/11/20 HPI HPI: 75-year-old female patient presented to the emergency department from [facility] cardiology clinic. She had an appointment for increasing fatigue and shortness of breath, lab work was drawn hemoglobin was 5.7 she was instructed to go to the emergency department for further work-up. She reports being put on Xarelto for paroxysmal atrial fibrillation 3 months ago hemoglobin at that time was 12. She does report fatigue for the last couple months and within the last 2 to 3 weeks increasing shortness of breath she denies any chest pain dizziness fever/chills/body aches or nausea/vomiting/diarrhea. She denies having any visible blood in emesis or stool. Lab work in emergency department white blood cell count 3.3, hemoglobin 5.7, hematocrit 20.2, platelets 158. CBC unremarkable SARS-COV-2 IgG/IgM negative Occult blood positive 75-year-old female patient lying in bed resting quietly no respiratory distress noted, denies chest pain. Hypertensive at moment, cardiology to see and adjust medications. We will transfuse 2 units of packed red blood cells recheck H&H in 1 hour if still anemic will refuse 2 additional units Hospital Course Hospital Course: Laboratory Tests 12/08/20 12/08/20 12/08/20 15:55 15:55 15:59 WBC 3.3 L RBC 2.91 L Hgb 5.7 L* Hct 20.2 L* MCV 69.5 L MCH 19.6 L MCHC 28.2 L RDW 18.1 H Plt Count 158 D MPV 10.0 Neut % (Auto) 65.9 Lymph % (Auto) 25.2 [place] % (Auto) 6.4 Eos % (Auto) 1.5 Baso % (Auto) 1.0 Neut # (Auto) 2.2 Lymph # (Auto) 0.8 [place] # (Auto) 0.2 Eos # (Auto) 0.1 Baso # (Auto) 0.0 PT INR APTT Sodium Potassium Chloride Carbon Dioxide Anion Gap BUN Creatinine Estimated Creat Clear Estimated GFR Est GFR ( Amer) Glucose Calcium Total Bilirubin AST ALT Alkaline Phosphatase Total Protein Albumin Globulin Albumin/Globulin Ratio Stool Occult Blood SARS-CoV-2 IgG Ab (Rapid) SARS-CoV-2 IgM Ab (Rapid) Blood Type O Positive Antibody Screen Positive Antibody Identification Warm Auto Antibody Crossmatch ([facility]) See Detail 12/08/20 12/08/20 12/08/20 15:59 15:59 15:59 WBC RBC Hgb Hct MCV MCH MCHC RDW Plt Count MPV Neut % (Auto) Lymph % (Auto) [facility] % (Auto) Eos % (Auto) Baso % (Auto) Neut # (Auto) Lymph # (Auto) [facility] # (Auto) Eos # (Auto) Baso # (Auto) PT 13.0 H INR 1.19 H APTT 20.1 L Sodium 139 Potassium 4.4 Chloride 107 Carbon Dioxide 26 Anion Gap 10.4 BUN 20 H Creatinine 0.80 Estimated Creat Clear 61 Estimated GFR 70 Est GFR ( Amer) 85 Glucose 116 H Calcium 8.5 Total Bilirubin 0.6 AST 35 D ALT 14 Alkaline Phosphatase 74 Total Protein 6.9 Albumin 4.1 Globulin 2.8 Albumin/Globulin Ratio 1.5 Stool Occult Blood SARS-CoV-2 IgG Ab (Rapid) Negative SARS-CoV-2 IgM Ab (Rapid) Negative Blood Type Antibody Screen Antibody Identification Crossmatch ([facility]) 12/08/20 12/09/20 12/10/20 16:45 14:20 01:40 WBC RBC Hgb 7.7 L* D 9.0 L D Hct 26.7 L 29.6 L MCV MCH MCHC RDW Plt Count MPV Neut % (Auto) Lymph % (Auto) [place] % (Auto) Eos % (Auto) Baso % (Auto) Neut # (Auto) Lymph # (Auto) [place] # (Auto) Eos # (Auto) Baso # (Auto) PT INR APTT Sodium Potassium Chloride Carbon Dioxide Anion Gap BUN Creatinine Estimated Creat Clear Estimated GFR Est GFR ( Amer) Glucose Calcium Total Bilirubin AST ALT Alkaline Phosphatase Total Protein Albumin Globulin Albumin/Globulin Ratio Stool Occult Blood Positive A
[2020-12-11 15:13] LABS: Peripheral Smear Review Scanned Result
--- NOTE | 2020-12-11 16:49 | PC.NURSE ---
discharge education provided to patient at this time. went over medication and postop instructions/ pt v/u
== END 2020-12-11 17:00 | disposition home or self-care (01) | DRG 812 ==
LOC: ER 16:55 → 2ND 20:31 → OB 12-10 08:38
PROVIDERS: Internal Medicine Gastroenterology; Nurse Practitioner Family; Admitting Provider Family Medicine; Emergency Provider Emergency Medicine; PCP Emergency Medicine; Visit Provider Emergency Medicine
PROC: 0DJ08ZZ Inspection of Upper Intestinal Tract, Via Natural or Artificial Opening Endoscopic (ICD-10-PCS; CPT 43235; principal; 2020-12-11 12:00)
DX: D64.9 Anemia, unspecified (principal); K92.2 Gastrointestinal hemorrhage, unspecified; I27.20 Pulmonary hypertension, unspecified; I48.0 Paroxysmal atrial fibrillation; Z79.01 Long term (current) use of anticoagulants; K31.819 Angiodysplasia of stomach and duodenum without bleeding; Z79.890 Hormone replacement therapy; Z88.5 Allergy status to narcotic agent; Z79.899 Other long term (current) drug therapy; Z95.2 Presence of prosthetic heart valve
CPT/HCPCS: 43239; 43255; 36415; 80048; 80053; 80061; 80076; 82272; 84439; 84443; 85014; 85018; 85025; 85610; 85730; 86328; 86850; 86870; 88305; 93005; 93306; 99284; C2618; G0328; P9016

== ENCOUNTER → 2020-12-29 16:16 | Outpatient (CLI) | payer MEDICARE, MEDICAID, SELFPAY ==
[2020-12-30 08:56] LABS: Basophils # 0.1 K/mm3 (0-0.2); Basophils % 1.3 % (0.1-2.0); Eosinophils # 0.1 K/mm3 (0.0-0.4); Eosinophils % 3.7 % (0.1-12.0); Hematocrit 32.7 % (37.0-47.0); Hemoglobin 9.4 g/dL (12.2-16.2); Lymphocytes % 29.3 % (10-50); Mean Corpuscular HGB Conc 28.9 g/dL (31.8-35.4); Mean Corpuscular Hemoglobin 22.3 pg (27.0-31.2); Mean Corpuscular Volume 77.3 fl (81-99); Mean Platelet Volume 9.5 fl (7.4-10.4); Monocytes # 0.3 K/mm3 (0.1-1.0); Monocytes % 7.9 % (1.7-9.3); Neutrophils % 57.8 % (37.0-80.0); Platelet Count 121 K/mm3 (142-424); Red Blood Count 4.23 M/mm3 (4.20-5.40); White Blood Count 3.4 K/mm3 (4.8-10.8)
[2020-12-30 08:57] LABS: Chloride 105 mmol/L (98-107); Potassium 4.9 mmoL/L (3.5-5.1); Sodium 139 mmol/L (136-145)
[2020-12-30 09:00] LABS: Alanine Aminotransferase 14 U/L (12-78); Albumin Level 3.9 g/dl (3.5-5.0); Albumin/Globulin Ratio 1.3 (1.1-1.8); Alkaline Phosphatase 86 U/L (38-126); Anion Gap 9.9 mEq/L (5-15); Aspartate Amino Transferase 54 U/L (14-36); Bilirubin,Total 1.1 mg/dl (0.2-1.3); Blood Urea Nitrogen 15 mg/dl (7-17); Calcium 8.9 mg/dl (8.4-10.2); Carbon Dioxide 29 mmol/L (22.0-30.0); Estimated Glomerular Filt Rate 70 ml/min (>60); GFR (African American) 85 ML/MIN (>60); Glucose 105 mg/dl (74-100); Total Protein,Serum 6.9 g/dl (6.3-8.2)
== END ==
PROVIDERS: Visit Provider Emergency Medicine
DX: D64.9 Anemia, unspecified (principal)
CPT/HCPCS: 80053; 85025

== ENCOUNTER → 2021-01-07 10:02 | Outpatient (CLI) | payer MEDICARE, MEDICAID, SELFPAY ==
[2021-01-07 12:00] LABS: Coronavirus 19 IgG Antibody Negative (Negative); Coronavirus 19 IgM Antibody Negative (Negative)
== END ==
PROVIDERS: Visit Provider Internal Medicine Gastroenterology
DX: Z01.818 Encounter for other preprocedural examination (principal); Z11.52 Encounter for screening for COVID-19; Z12.11 Encounter for screening for malignant neoplasm of colon
CPT/HCPCS: 36415; 86328

== ENCOUNTER → 2021-02-26 13:38 | Outpatient (CLI) | payer MEDICARE, MEDICAID, SELFPAY ==
[2021-02-26 13:46] LABS: Basophils % 0.8 % (0.1-2.0); Eosinophils # 0.1 K/mm3 (0.0-0.4); Eosinophils % 2.5 % (0.1-12.0); Hemoglobin 8.9 g/dL (12.2-16.2); Lymphocytes # 0.7 K/mm3 (0.7-4.5); Lymphocytes % 17.7 % (10-50); Mean Corpuscular HGB Conc 26.9 g/dL (31.8-35.4); Mean Corpuscular Hemoglobin 19.1 pg (27.0-31.2); Mean Corpuscular Volume 71.2 fl (81-99); Mean Platelet Volume 7.3 fl (7.4-10.4); Monocytes # 0.4 K/mm3 (0.1-1.0); Neutrophils # 2.9 K/mm3 (1.8-7.8); Neutrophils % 69.9 % (37.0-80.0); Platelet Count 125 K/mm3 (142-424); Red Blood Count 4.64 M/mm3 (4.20-5.40); Red Cell Distribution Width 17.3 % (11.5-17.5); White Blood Count 4.1 K/mm3 (4.8-10.8)
[2021-02-26 14:08] LABS: Amphetamine/Metha Screen,Urine Negative ng/ml (<1000); Barbiturates Screen,Urine Negative ng/ml (<200)
[2021-02-26 14:09] LABS: Benzodiazepines Screen,Urine Negative ng/ml (<200)
[2021-02-26 14:10] LABS: Cannabinoid Screen,Urine Negative ng/ml (<50); Cocaine Screen,Urine Negative ng/ml (<300)
[2021-02-26 14:11] LABS: Methadone Screen,Urine Negative ng/ml (<300)
[2021-02-26 14:12] LABS: Opiate Screen,Urine Negative ng/ml (<300); Phencyclidine Screen,Urine Negative ng/ml (<25)
== END ==
PROVIDERS: Visit Provider Emergency Medicine
DX: M54.5 Low back pain (principal); R53.83 Other fatigue
CPT/HCPCS: 80305; 85025

== ENCOUNTER → 2021-05-14 17:40 | Outpatient (CLI) | payer MEDICARE, MEDICAID, SELFPAY ==
[2021-05-14 18:31] LABS: Basophils % 0.6 % (0.1-2.0); Eosinophils # 0.1 K/mm3 (0.0-0.4); Eosinophils % 2.3 % (0.1-12.0); Hematocrit 29.6 % (37.0-47.0); Hemoglobin 8.6 g/dL (12.2-16.2); Lymphocytes # 0.9 K/mm3 (0.7-4.5); Lymphocytes % 29.8 % (10-50); Mean Corpuscular HGB Conc 29.1 g/dL (31.8-35.4); Mean Corpuscular Hemoglobin 19.1 pg (27.0-31.2); Mean Corpuscular Volume 65.6 fl (81-99); Mean Platelet Volume 8.9 fl (7.4-10.4); Monocytes # 0.2 K/mm3 (0.1-1.0); Monocytes % 7.6 % (1.7-9.3); Neutrophils # 1.9 K/mm3 (1.8-7.8); Neutrophils % 59.7 % (37.0-80.0); Platelet Count 120 K/mm3 (142-424); Red Blood Count 4.51 M/mm3 (4.20-5.40); Red Cell Distribution Width 19.6 % (11.5-17.5); White Blood Count 3.2 K/mm3 (4.8-10.8)
[2021-05-14 18:36] LABS: Alanine Aminotransferase 10 U/L (12-78); Albumin Level 4.2 g/dl (3.5-5.0); Albumin/Globulin Ratio 1.4 (1.1-1.8); Alkaline Phosphatase 75 U/L (38-126); Aspartate Amino Transferase 32 U/L (14-36); Bilirubin,Total 0.8 mg/dl (0.2-1.3); Blood Urea Nitrogen 18 mg/dl (7-17); Calcium 8.6 mg/dl (8.4-10.2); Carbon Dioxide 30 mmol/L (22.0-30.0); Chloride 102 mmol/L (98-107); Estimated Glomerular Filt Rate 70 ml/min (>60); GFR (African American) 85 ML/MIN (>60); Globulin 2.9 g/dL (1.3-3.2); Glucose 102 mg/dl (74-100); Sodium 138 mmol/L (136-145); Total Protein,Serum 7.1 g/dl (6.3-8.2)
== END ==
PROVIDERS: Visit Provider Emergency Medicine
DX: D64.9 Anemia, unspecified (principal)
CPT/HCPCS: 80053; 85025

== ENCOUNTER → 2021-06-14 08:25 | Outpatient (CLI) | payer MEDICARE, MEDICAID, SELFPAY ==
[2021-06-14 08:25] VITALS: BMI 26.6
== END ==
PROVIDERS: Visit Provider Emergency Medicine
DX: D64.9 Anemia, unspecified (principal); Z01.84 Encounter for antibody response examination
CPT/HCPCS: 36415; 86850; 86870

== ENCOUNTER 2021-06-15 08:23 | Outpatient (CLI) | payer MEDICARE, MEDICAID, SELFPAY ==
[2021-06-15] VITALS (21 sets, daily range): BP systolic 135–180; BP diastolic 55–91; PULSE 51–58; RESP 16–18; TEMP 36.2–36.6; O2SAT 96–98; BMI 26.6
[2021-06-15 08:34] LABS: Hematocrit 29.6 % (37.0-47.0); Hemoglobin 8.6 g/dL (12.2-16.2)
--- NOTE | 2021-06-15 16:05 | PC.NURSE ---
0930 Initiation of transfusion of 1st unit PRBC at this time. BP slightly elevated, patient just took BP medication prior to arrival/will monitor. Patient denies c/o other than weakness and occasional nausea. resp easy/reg. IV patent. Patient verbalizes understanding of all instruction regarding s/s blood transfusion reaction. Lungs CTA. 1000 Patient tolerating blood well. IV patent. VSS. Resp easy/reg. Denies c/o. 1030 Pt tolerating blood well with no s/s transfusion reaction. IV patent. Resp easy/reg. Denies complaints other than occasional mild intermittent nausea relieved with olu abran. Patient states this is her normal and present daily. 1130 Tolerating blood well. Patient without signs and symptoms of transfusion reaction. IV patent. Resp easy/reg. No nausea. Talking with staff and watching TV. Lungs CTA 1150 1st unit of blood complete at this time. Pt juan well with no problems/no s/s transfusion reaction. 1225 Initiation of transfusion of 2nd unit PRBC at this time. VSS. Denies complaints. Lungs CTA. IV patent. Resp easy/reg. Reviewed s/s transfusion reaction with patient, who verbalizes understanding of all instruction 1255 Tolerating blood well. VSS. No s/s transfusion reaction or problems noted. IV patent. 1325 Patient tolerating blood well with no s/s transfusion reaction noted. Eating lunch. Resp easy/reg. IV patent. 1445 2nd unit of blood complete at this time. Patient tolerated well with no s/s/ transfusion reaction noted. Resp easy/reg. Patient med with Zofran 8mg po for c/o nausea per MD order. Patient takes Zofran as needed at home. 1515 Relief of nausea with Zofran. Patient denies further complaints. 1545 One hour post transfusion vital signs stable/post tranfusion H&H collected. 1550 Patient discharge home/stable.
[2021-06-15 16:13] LABS: Hematocrit 30.6 % (37.0-47.0); Hemoglobin 9.2 g/dL (12.2-16.2)
== END 2021-06-15 15:50 | disposition home or self-care (01) ==
LOC: INF 08:23
PROVIDERS: Visit Provider Emergency Medicine
DX: D64.9 Anemia, unspecified (principal)
CPT/HCPCS: 36430; 85014; 85018; P9016

== ENCOUNTER → 2021-07-21 13:59 | Outpatient (CLI) | payer MEDICARE, MEDICAID, SELFPAY | PROVIDERS: Visit Provider Emergency Medicine | DX: D64.9 Anemia, unspecified (principal) | CPT/HCPCS: 36415; 86850; 86870 ==

== ENCOUNTER 2021-07-22 08:32 | Outpatient (CLI) | payer MEDICARE, MEDICAID, SELFPAY ==
[2021-07-22] VITALS (19 sets, daily range): BP systolic 150–200; BP diastolic 45–96; PULSE 52–62; RESP 17–18; TEMP 36.1–36.4; O2SAT 97–99; BMI 26.6
--- NOTE | 2021-07-22 09:25 | PC.NURSE ---
0925- pt noted to be hypertensive this time. pt stated that she just took her BP medication before coming in and that this is not out of the norm for her BP. pt denies any symptoms with HTN. will continue to monitor
--- NOTE | 2021-07-22 11:22 | PC.NURSE ---
1122- unit #1 complete at this time. pt denies any s/s of transfusion reaction at this time. pt up and ambulating to the bathroom independently. no complaints at this time
--- NOTE | 2021-07-22 14:33 | PC.NURSE ---
1403- unit #2 complete at this time. pt denies any s/s of a transfusion reaction at this time. pt will wait one hour for post transfusion h/h
[2021-07-22 15:17] LABS: Hematocrit 32.1 % (37.0-47.0); Hemoglobin 9.1 g/dL (12.2-16.2)
== END 2021-07-22 15:14 | disposition home or self-care (01) ==
LOC: INF 08:34
PROVIDERS: PCP Emergency Medicine; Visit Provider Emergency Medicine
DX: D64.9 Anemia, unspecified (principal)
CPT/HCPCS: 36430; 85014; 85018; P9016

== ENCOUNTER → 2021-08-06 14:58 | Outpatient (CLI) | payer MEDICARE, MEDICAID, SELFPAY ==
[2021-08-06 15:15] LABS: Basophils % 0.9 % (0.1-2.0); Eosinophils # 0.2 K/mm3 (0.0-0.4); Eosinophils % 3.1 % (0.1-12.0); Hematocrit 33.8 % (37.0-47.0); Hemoglobin 9.3 g/dL (12.2-16.2); Lymphocytes # 0.8 K/mm3 (0.7-4.5); Mean Corpuscular HGB Conc 27.5 g/dL (31.8-35.4); Mean Corpuscular Hemoglobin 20.5 pg (27.0-31.2); Mean Corpuscular Volume 74.6 fl (81-99); Mean Platelet Volume 10.6 fl (7.4-10.4); Monocytes # 0.3 K/mm3 (0.1-1.0); Neutrophils # 3.4 K/mm3 (1.8-7.8); Platelet Count 176 K/mm3 (142-424); Red Blood Count 4.53 M/mm3 (4.20-5.40); Red Cell Distribution Width 20.1 % (11.5-17.5); White Blood Count 4.7 K/mm3 (4.8-10.8)
[2021-08-06 16:21] LABS: Chloride 102 mmol/L (98-107); Potassium 4.8 mmoL/L (3.5-5.1); Sodium 140 mmol/L (136-145)
[2021-08-06 16:23] LABS: Alanine Aminotransferase 11 U/L (12-78); Aspartate Amino Transferase 29 U/L (14-36); Blood Urea Nitrogen 15 mg/dl (7-17); Estimated Glomerular Filt Rate 82 ml/min (>60); GFR (African American) 99 ML/MIN (>60)
[2021-08-06 16:24] LABS: Albumin Level 4.2 g/dl (3.5-5.0); Albumin/Globulin Ratio 1.4 (1.1-1.8); Alkaline Phosphatase 99 U/L (38-126); Anion Gap 12.8 mEq/L (5-15); Bilirubin,Total 0.7 mg/dl (0.2-1.3); Calcium 8.8 mg/dl (8.4-10.2); Carbon Dioxide 30 mmol/L (22.0-30.0); Glucose 110 mg/dl (74-100); Iron 32 ug/dL (37-170); Total Protein,Serum 7.2 g/dl (6.3-8.2)
[2021-08-06 16:33] LABS: Total Iron Binding Capacity 478 ug/dL (265-497)
[2021-08-06 16:55] LABS: Thyroid Stimulating Hormone 2.91 uIU/mL (0.465-4.68)
[2021-08-06 16:59] LABS: Ferritin 6.49 ng/ml (11.1-264)
[2021-08-06 19:34] LABS: Vitamin B12 259 pg/mL (239-931)
== END ==
PROVIDERS: Visit Provider Internal Medicine Medical Oncology
DX: D64.9 Anemia, unspecified (principal)
CPT/HCPCS: 36415; 80053; 82607; 82728; 82746; 83540; 83550; 84443; 85025

== ENCOUNTER → 2021-08-12 09:24 | Outpatient (CLI) | payer MEDICARE, MEDICAID, SELFPAY ==
--- NOTE | 2021-08-12 09:27 | CA_ITS ---
APPROVED REPORT Chemical Machine Tender: CT Laterality: Bilateral Indications: left caortid bruit Doppler Spectral Velocity Analysis ECA (R) 66.30/ cm/s ECA (L) 83.80/ cm/s dICA (R) 107.70/28.40 cm/s dICA (L) 57.70/18.70 cm/s Sophie (R) 73.20/16.70 cm/s Sophie (L) 74.30/16.00 cm/s pICA (R) 88.30/17.10 cm/s pICA (L) 106.90/36.60 cm/s dCCA (R) 61.40/9.70 cm/s dCCA (L) 80.10/15.00 cm/s pCCA (R) 78.50/10.20 cm/s pCCA (L) 76.30/11.20 cm/s Vert (R) 42.20/ cm/s Vert (L) 58.40/ cm/s ICA/CCA 1.80 ICA/CCA 1.30 Findings Duplex evaluation demonstrates stenosis of the right proximal internal carotid artery in the range of 20-49% with PSV <140 cm/sec, EDV <100 cm/sec, and IC/CC Ratio <4.0, lower end of scale. Duplex evaluation demonstrates stenosis of the left proximal internal carotid artery in the range of 20-49% with PSV <140 cm/sec, EDV <100 cm/sec, and IC/CC Ratio <4.0, lower end of scale. Duplex evaluation demonstrates antegrade flow of the bilateral Vertebral Arteries. Bilateral thyroid cysts noted. Annotation on doppler measurement images is incorrect, doppler measurement table in this report is correct. Conclusion Duplex evaluation demonstrates stenosis of the right proximal internal carotid artery in the range of 20-49% with PSV <140 cm/sec, EDV <100 cm/sec, and IC/CC Ratio <4.0, lower end of scale. Duplex evaluation demonstrates stenosis of the left proximal internal carotid artery in the range of 20-49% with PSV <140 cm/sec, EDV <100 cm/sec, and IC/CC Ratio <4.0, lower end of scale. Duplex evaluation demonstrates antegrade flow of the bilateral Vertebral Arteries. Bilateral thyroid cysts noted. Annotation on doppler measurement images is incorrect, doppler measurement table in this report is correct. Electronically signed by : William Guerrero MD 08/17/2021 08:37:48
--- NOTE | 2021-08-12 09:27 | CA_ITS ---
APPROVED REPORT EXAM: Comprehensive 2D, Doppler, and color-flow Echocardiogram Civil Engineer Helper: Tatiana Lopez CRT Ht: 5 ft 7 in Wt: 169lbs BSA: 1.88 BP: 110/70 mmHg Indications: Hypertension I10, Atrial Fibrillation, AVR 2013, Watchman device, CAD, CM, GERD, Severely anemic <6 on last echo 12/08/20, pt had blood work 08/06/21 HGB 9.3 Limited echo for aortic valve parameters 2D Dimensions LVOT 1.85 cm (M/F) 1.5-2.5 M-Mode Dimensions RVDd 3.43 cm (0.9-2.6) LA Diam 3.61 cm (1.9-4.0) LVDd 4.28 cm (3.5-5.7) Ao Diam 4.35 cm (2.0-3.7) LVDs 2.86 cm (3.5-5.7) IVSd 1.75 cm (0.6-1.1) PWd 1.50 cm (0.6-1.1) EF (Teich) 62.20% FS 33.20% EDV (Teich) 82.20 mL ESV (Teich) 31.10 mL Aortic Valve LVOT Max 195.00 (70-110 cm/s) LVOT VTI 53.22 cm AoV Peak Anshul. 406.00 (50-130 cm/s) AO Peak GR. 66.00 mmHg AO Mean GR. 36.40 (<5 mmHg) AO VTI 104.96 (18-25 cm) HERIBERTO (VTI) 1.36 (2.5-4.5 cm2) Conclusion 1. Limited echocardiogram was performed to assess the prosthetic aortic valve. 2. The maximum aortic outflow velocity across the prosthetic valve is 4.1 m/s resulting in a mean gradient across valve of 40 mmHg, valve area is calculated at 1.4 cm???, there is no aortic insufficiency. Electronically signed by : Benoit Brown MD 08/12/2021 14:52:58
== END ==
PROVIDERS: PCP Emergency Medicine; Visit Provider Nurse Practitioner Family
DX: R09.89 Other specified symptoms and signs involving the circulatory and respiratory systems; I65.22 Occlusion and stenosis of left carotid artery; Z95.3 Presence of xenogenic heart valve
CPT/HCPCS: 93308; 93880

== ENCOUNTER 2021-08-18 13:18 | Outpatient (CLI) | payer MEDICARE, MEDICAID, SELFPAY ==
[2021-08-18 13:50] VITALS: BP 198/77; PULSE 56; RESP 18; TEMP 36.2
[2021-08-18 14:20] VITALS: BP 162/69; PULSE 54; RESP 16
== END 2021-08-18 14:35 | disposition home or self-care (01) ==
LOC: INF 13:19
PROVIDERS: PCP Emergency Medicine; Visit Provider Internal Medicine Medical Oncology
DX: D50.9 Iron deficiency anemia, unspecified (principal); D64.9 Anemia, unspecified
CPT/HCPCS: 96365; J1439

== ENCOUNTER 2021-08-25 12:57 | Outpatient (CLI) | payer MEDICARE, MEDICAID, SELFPAY ==
[2021-08-25 13:18] VITALS: BP 188/84; PULSE 56; RESP 17; TEMP 36.7; O2SAT 96
[2021-08-25 13:55] VITALS: BP 182/85; PULSE 55; RESP 17; TEMP 36.7; O2SAT 97
== END 2021-08-25 14:05 | disposition home or self-care (01) ==
LOC: INF 12:59
PROVIDERS: PCP Emergency Medicine; Visit Provider Internal Medicine Medical Oncology
DX: D50.9 Iron deficiency anemia, unspecified (principal); D64.9 Anemia, unspecified
CPT/HCPCS: 96365; J1439

== ENCOUNTER → 2021-08-31 13:00 | Outpatient (CLI) | payer MEDICARE, MEDICAID, SELFPAY ==
--- NOTE | 2021-08-31 13:00 | US_ITS ---
PROCEDURE: US THYROID CLINICAL INDICATION: bilateral thyroid cyst seen on carotid doppler COMPARISON: US THY US THYROID from 03/14/2016 FINDINGS: Right lobe: Normal echotexture and vascularity, measuring 1.7 x 4.4 x 1.4 cm. There are multiple hypoechoic nodules, the largest of which measures 8 millimeters. Left lobe: Normal echotexture and vascularity, measuring 1.3 x 3.8 x 1.1 cm. There are multiple hypoechoic nodules, the largest of which measures 1.2 centimeters. Isthmus: Normal echotexture. Additional findings: None IMPRESSION: According to the ACR thyroid Imaging reporting and data System (ACR TI-RADS), predominantly cystic nodules are inherently benign. TR1: No FNA required. Dictated by: Clair Nolan MD 09/01/2021 16:21 Clair Nolan MD in [place] 09/01/2021 16:21
== END ==
PROVIDERS: PCP Emergency Medicine; Visit Provider Emergency Medicine
DX: E04.1 Nontoxic single thyroid nodule (principal)
CPT/HCPCS: 76536

== ENCOUNTER → 2021-09-22 14:11 | Outpatient (CLI) | payer MEDICARE, MEDICAID, SELFPAY ==
[2021-09-22 15:05] LABS: Basophils # 0.1 K/mm3 (0-0.2); Basophils % 1.3 % (0.1-2.0); Eosinophils # 0.4 K/mm3 (0.0-0.4); Eosinophils % 9.6 % (0.1-12.0); Hematocrit 39.3 % (37.0-47.0); Lymphocytes % 23.6 % (10-50); Mean Corpuscular HGB Conc 30.6 g/dL (31.8-35.4); Mean Corpuscular Hemoglobin 25.5 pg (27.0-31.2); Mean Corpuscular Volume 83.4 fl (81-99); Mean Platelet Volume 8.6 fl (7.4-10.4); Monocytes # 0.3 K/mm3 (0.1-1.0); Monocytes % 6.8 % (1.7-9.3); Neutrophils # 2.5 K/mm3 (1.8-7.8); Neutrophils % 58.6 % (37.0-80.0); Platelet Count 133 K/mm3 (142-424); Red Blood Count 4.72 M/mm3 (4.20-5.40); White Blood Count 4.2 K/mm3 (4.8-10.8)
[2021-09-22 15:41] LABS: Iron 68 ug/dL (37-170)
[2021-09-22 15:50] LABS: Total Iron Binding Capacity 390 ug/dL (265-497)
[2021-09-22 16:17] LABS: Ferritin 59.4 ng/ml (11.1-264)
== END ==
PROVIDERS: Visit Provider Internal Medicine Medical Oncology
DX: D64.9 Anemia, unspecified (principal); Z79.01 Long term (current) use of anticoagulants
CPT/HCPCS: 36415; 82728; 83540; 83550; 85025

== ENCOUNTER → 2022-01-04 16:07 | Outpatient (CLI) | payer MEDICARE, MEDICAID, SELFPAY ==
[2022-01-04 17:33] LABS: Basophils % 0.6 % (0.1-2.0); Eosinophils # 0.1 K/mm3 (0.0-0.4); Eosinophils % 2.5 % (0.1-12.0); Lymphocytes # 0.6 K/mm3 (0.7-4.5); Lymphocytes % 24.2 % (10-50); Mean Corpuscular HGB Conc 31.5 g/dL (31.8-35.4); Mean Corpuscular Hemoglobin 25.6 pg (27.0-31.2); Mean Corpuscular Volume 81.4 fl (81-99); Monocytes # 0.2 K/mm3 (0.1-1.0); Monocytes % 7.8 % (1.7-9.3); Neutrophils # 1.7 K/mm3 (1.8-7.8); Neutrophils % 64.8 % (37.0-80.0); Platelet Count 123 K/mm3 (142-424); Red Cell Distribution Width 15.7 % (11.5-17.5); White Blood Count 2.7 K/mm3 (4.8-10.8)
[2022-01-04 18:13] LABS: Iron 48 ug/dL (37-170)
[2022-01-04 18:22] LABS: Total Iron Binding Capacity 457 ug/dL (265-497)
[2022-01-04 18:49] LABS: Ferritin 11.9 ng/ml (11.1-264)
== END ==
PROVIDERS: Visit Provider Internal Medicine Medical Oncology
DX: D64.9 Anemia, unspecified (principal)
CPT/HCPCS: 36415; 82728; 83540; 83550; 85025

== ENCOUNTER 2022-01-17 12:50 | Outpatient (CLI) | payer MEDICARE, MEDICAID, SELFPAY ==
[2022-01-17 13:10] VITALS: BP 146/66; PULSE 69; RESP 18; TEMP 36.2; O2SAT 99
[2022-01-17 13:55] VITALS: BP 169/55; PULSE 48; RESP 18
== END 2022-01-17 13:55 | disposition home or self-care (01) ==
LOC: INF 12:54
PROVIDERS: PCP Emergency Medicine; Visit Provider Internal Medicine Medical Oncology
DX: D50.9 Iron deficiency anemia, unspecified (principal)
CPT/HCPCS: 96365; J1439

== ENCOUNTER → 2022-01-28 13:13 | Outpatient (CLI) | payer MEDICARE, MEDICAID, SELFPAY ==
[2022-01-28 13:38] VITALS: BP 199/82; PULSE 86; RESP 18
[2022-01-28 14:18] VITALS: BP 186/79; PULSE 50; RESP 18
== END ==
PROVIDERS: PCP Emergency Medicine; Visit Provider Internal Medicine Medical Oncology
DX: D64.9 Anemia, unspecified (principal)
CPT/HCPCS: 96365; J1439

== ENCOUNTER → 2022-04-05 11:37 | Outpatient (CLI) | payer MEDICARE, MEDICAID, SELFPAY ==
[2022-04-05 18:23] LABS: Basophils % 1.3 % (0.1-2.0); Eosinophils # 0.1 K/mm3 (0.0-0.4); Eosinophils % 3.1 % (0.1-12.0); Hematocrit 39.5 % (37.0-47.0); Hemoglobin 13.6 g/dL (12.2-16.2); Lymphocytes % 31.8 % (10-50); Mean Corpuscular HGB Conc 34.3 g/dL (31.8-35.4); Mean Corpuscular Volume 84.5 fl (81-99); Mean Platelet Volume 9.4 fl (7.4-10.4); Monocytes # 0.3 K/mm3 (0.1-1.0); Monocytes % 10.2 % (1.7-9.3); Neutrophils # 1.7 K/mm3 (1.8-7.8); Neutrophils % 53.7 % (37.0-80.0); Platelet Count 112 K/mm3 (142-424); Red Blood Count 4.68 M/mm3 (4.20-5.40); Red Cell Distribution Width 17.4 % (11.5-17.5); White Blood Count 3.1 K/mm3 (4.8-10.8)
[2022-04-05 18:26] LABS: Alanine Aminotransferase 21 U/L (12-78); Albumin Level 4.2 g/dl (3.5-5.0); Albumin/Globulin Ratio 1.3 (1.1-1.8); Alkaline Phosphatase 106 U/L (38-126); Anion Gap 11.1 mEq/L (5-15); Aspartate Amino Transferase 39 U/L (14-36); Bilirubin,Total 0.5 mg/dl (0.2-1.3); Blood Urea Nitrogen 20 mg/dl (7-17); Calcium 8.9 mg/dl (8.4-10.2); Carbon Dioxide 32 mmol/L (22.0-30.0); Chloride 101 mmol/L (98-107); Estimated Glomerular Filt Rate 82 ml/min (>60); GFR (African American) 99 ML/MIN (>60); Globulin 3.2 g/dL (1.3-3.2); Glucose 95 mg/dl (74-100); Potassium 5.1 mmoL/L (3.5-5.1); Sodium 139 mmol/L (136-145); Total Protein,Serum 7.4 g/dl (6.3-8.2)
== END ==
PROVIDERS: PCP Emergency Medicine; Visit Provider Emergency Medicine
DX: E78.2 Mixed hyperlipidemia (principal); I10 Essential (primary) hypertension
CPT/HCPCS: 80053; 85025

== ENCOUNTER → 2022-05-31 14:25 | Outpatient (CLI) | payer MEDICARE, MEDICAID, SELFPAY ==
--- NOTE | 2022-05-31 14:36 | US_ITS ---
FINAL REPORT CLINICAL HISTORY: left lower leg - possible bakers cyst COMPARISON: Sonographic images of the posterior left knee were obtained FINDINGS: There is no mass or fluid collection in the posterior knee. The popliteal vessels are patent. IMPRESSION: No mass or fluid collection in the posterior knee. Reviewed, Interpreted and Dictated by Ashlee Wilkinson MD Transcribed by Francy Harrison Authenticated and [facility]
[2022-05-31 16:03] LABS: Anion Gap 9.3 mEq/L (5-15); Blood Urea Nitrogen 20 mg/dl (7-17); Calcium 9.5 mg/dl (8.4-10.2); Carbon Dioxide 33 mmol/L (22.0-30.0); Chloride 102 mmol/L (98-107); Estimated Glomerular Filt Rate 61 ml/min (>60); GFR (African American) 74 ML/MIN (>60); Glucose 98 mg/dl (74-100); Magnesium 1.8 mg/dl (1.6-2.3); Potassium 5.3 mmoL/L (3.5-5.1); Sodium 139 mmol/L (136-145)
== END ==
PROVIDERS: PCP Emergency Medicine; Visit Provider Nurse Practitioner
DX: E78.2 Mixed hyperlipidemia (principal); I11.9 Hypertensive heart disease without heart failure; R00.1 Bradycardia, unspecified; R00.2 Palpitations; Z95.3 Presence of xenogenic heart valve; M71.22 Synovial cyst of popliteal space [Baker], left knee
CPT/HCPCS: 36415; 76882; 80048; 83735

== ENCOUNTER → 2022-06-08 09:41 | Outpatient (CLI) | payer MEDICARE, MEDICAID, SELFPAY ==
--- NOTE | 2022-06-08 09:42 | CA_ITS ---
APPROVED REPORT EXAM: Comprehensive 2D, Doppler, and color-flow Echocardiogram Gel Coat Sprayer: Jacque Marquez, RCS, RVS Ht: 5 ft 7 in Wt: 176lbs BSA: 1.91 BP: 161/58 mmHg Rhythm: Bradycardia Indications: , Bioprosthetic AoV, Watchman device, HTN CM without HF 2D Dimensions IVSd 1.01 cm F: 0.6-1.0 LVEF (Visual) 46.20 % PWd 1.07 cm F: 0.6 - 1.0 LA Volume 73.10 mL LVDd 5.09 cm F: 3.9 - 5.3 LA Volume Index 38.27 mL/m2 (M/F) 16-34 LVDs 3.91 cm F: 2.2 - 3.5 Aortic Root 2.90 cm F: 2.7 - 3.3 Left Atrium 4.31 cm F: 2.7 - 3.8 LVOT 1.97 cm (M/F) 1.5-2.5 M-Mode Dimensions RVDd 3.58 cm (0.9-2.6) LA Diam 4.80 cm (1.9-4.0) LVDd 4.80 cm (3.5-5.7) Ao Diam 3.13 cm (2.0-3.7) LVDs 3.00 cm (3.5-5.7) IVSd 1.11 cm (0.6-1.1) PWd 1.18 cm (0.6-1.1) EF (Teich) 60.00% EPSs 0.43 cm FS 32.00% EDV (Teich) 81.70 mL TAPSE 1.53 (<1.7) ESV (Teich) 29.60 mL LV Diastology E Decel Time 233.00 (160-240 msec) E/A Ratio 1.08 MED E' 4.50 (< 7 cm/sec) MED A' 6.20 cm/s E'/MED E' Ratio 20.36 (>14) LAT E' 6.00 (<10 cm/sec) LAT A' 7.30 cm/s E/LAT E' Ratio 15.27 (>14) Pulm Vein s 29.00 cm/sec Pulm Vein d 20.00 cm/sec Ar-A Duration 100.00 msec Aortic Valve LVOT Max 105.00 (70-110 cm/s) LVOT VTI 27.83 cm AoV Peak Anshul. 373.00 (50-130 cm/s) AO Peak GR. 55.70 mmHg AO Mean GR. 31.20 (<5 mmHg) AO VTI 88.37 (18-25 cm) HERIBERTO (VTI) 0.96 (2.5-4.5 cm2) Mitral Valve MV A Velocity 85.00 (40-130 cm/s) E/A Ratio 1.08 MV Decel. Time 233.00 (160-240 ms) MV Mean Gr. 1.30 (<2mmHg) MV PHT 67.00 ms Pulmonary Valve PV Peak Velocity 107.00 (50-150 cm/s) DC End VMAX 200.00 cm/s Tricuspid Valve TR P. Velocity 263.00 cm/s RAP Estimate 10.00 mmHg RVSP 37.80 mmHg Left Ventricle Left atrium is mildly enlarged, left ventricle is normal size mild concentric left ventricular hypertrophy, estimated ejection fraction 55% with no regional wall motion abnormality, grade 2 diastolic dysfunction seen with tissue Doppler evidence of raise left atrial pressure. Right Ventricle Right atrium and right ventricle mildly enlarged with normal contractility. Aortic Valve There is a bioprosthetic valve noted in the aortic position, valve is not well visualized. The mean gradient across valve is 33 mmHg, valve area is calculated at 0.9 cm??? represents severe prosthetic valve stenosis, there is no significant aortic insufficiency seen. Mitral Valve Mitral valve leaflets are minimally thickened, there is mild mitral regurgitation. Tricuspid Valve Tricuspid valve grossly normal, there is mild tricuspid regurgitation, tricuspid regurgitation jet velocity is inadequate for calculation of the right ventricular systolic pressure. Pulmonic Valve Pulmonic valve is poorly visualized. Great Vessels Aortic root is normal size. Inferior vena cava is poorly visualized. Pericardium No significant pericardial effusion noted. Conclusion 1. Mildly enlarged left atrium, normal left ventricular size, mild concentric left ventricular hypertrophy, estimated ejection fraction 55% with no regional wall motion abnormality, grade 2 diastolic dysfunction seen with tissue Doppler evidence of raise left atrial pressure. 2. Bioprosthetic valve in the aortic position, mean gradient across valve is 33 mmHg, valve area is 0.9 cm??? represents severe prosthetic
== END ==
PROVIDERS: PCP Emergency Medicine; Visit Provider Nurse Practitioner
DX: I35.0 Nonrheumatic aortic (valve) stenosis (principal)
CPT/HCPCS: 93306

== ENCOUNTER → 2022-06-23 13:50 | Outpatient (CLI) | payer MEDICARE, MEDICAID, SELFPAY ==
[2022-06-23 15:00] LABS: Basophils # 0.1 K/mm3 (0-0.2); Basophils % 2.1 % (0.1-2.0); Eosinophils # 0.1 K/mm3 (0.0-0.4); Eosinophils % 2.7 % (0.1-12.0); Hematocrit 42.4 % (37.0-47.0); Hemoglobin 12.9 g/dL (12.2-16.2); Lymphocytes % 30.2 % (10-50); Mean Corpuscular HGB Conc 30.4 g/dL (31.8-35.4); Mean Corpuscular Hemoglobin 28.5 pg (27.0-31.2); Mean Corpuscular Volume 93.9 fl (81-99); Mean Platelet Volume 8.5 fl (7.4-10.4); Monocytes # 0.2 K/mm3 (0.1-1.0); Monocytes % 7.2 % (1.7-9.3); Neutrophils # 1.9 K/mm3 (1.8-7.8); Neutrophils % 57.8 % (37.0-80.0); Platelet Count 109 K/mm3 (142-424); Red Blood Count 4.52 M/mm3 (4.20-5.40); Red Cell Distribution Width 14.2 % (11.5-17.5); White Blood Count 3.3 K/mm3 (4.8-10.8)
[2022-06-23 15:17] LABS: Anion Gap 9.1 mEq/L (5-15); Blood Urea Nitrogen 10 mg/dl (7-17); Calcium 8.8 mg/dl (8.4-10.2); Carbon Dioxide 31 mmol/L (22.0-30.0); Chloride 105 mmol/L (98-107); Estimated Glomerular Filt Rate 70 ml/min (>60); GFR (African American) 85 ML/MIN (>60); Glucose 120 mg/dl (74-100); Potassium 4.1 mmoL/L (3.5-5.1); Sodium 141 mmol/L (136-145)
== END ==
PROVIDERS: PCP Emergency Medicine; Visit Provider Physician Assistant
DX: E78.2 Mixed hyperlipidemia (principal); I10 Essential (primary) hypertension; I27.20 Pulmonary hypertension, unspecified; I48.0 Paroxysmal atrial fibrillation; R00.2 Palpitations; R06.00 Dyspnea, unspecified; R29.898 Other symptoms and signs involving the musculoskeletal system; R53.83 Other fatigue; Z95.3 Presence of xenogenic heart valve; Z01.812 Encounter for preprocedural laboratory examination; Z20.822 Contact with and (suspected) exposure to COVID-19
CPT/HCPCS: 36415; 80048; 85025; C9803; U0003; U0005

== ENCOUNTER 2022-06-24 08:19 | Day surgery (SDC) | payer MEDICARE, MEDICAID, SELFPAY ==
--- NOTE | 2022-06-24 08:24 | CA_ITS ---
APPROVED REPORT EXAM: Comprehensive 2D, Doppler, and color-flow Echocardiogram [employer]: Dalila Strong RT(R) Ht: 5 ft 7 in Wt: 170lbs BSA: 1.89 BP: 207/86 mmHg Indications: bioprosthetic aortic valve, hx watchman device, PHTN, AFIB, CAD, CM, GERD 2D Dimensions LVOT 1.86 cm (M/F) 1.5-2.5 Aortic Valve LVOT Max 136.00 (70-110 cm/s) LVOT VTI 36.72 cm AoV Peak Anshul. 349.00 (50-130 cm/s) AO Peak GR. 48.90 mmHg AO Mean GR. 24.00 (<5 mmHg) AO VTI 89.96 (18-25 cm) HERIBERTO (VTI) 1.11 (2.5-4.5 cm2) Procedure After obtaining informed consent, patient underwent transesophageal echo in the [employer]. Type of Sedation : Conscious Sedation Sedation was administered by Wyatt Viera C.R.N.A. Transesophageal probe was inserted and advanced into esophagus without difficulty by Dr. Jarrod Bush. The MELLISSA was performed without complications. Throughout the procedure, the blood pressure, pulse oximetry, cardiac rhythm, and rate were monitored. The patient tolerated the procedure without adverse effects. Recovery from conscious sedation was uneventful and vital signs were stable. Left Ventricle Left ventricle is normal size, mild concentric left ventricular hypertrophy, estimated ejection fraction 55% with no regional wall motion abnormality in the obtained views. Right Ventricle Right ventricle is mildly enlarged with normal contractility. Atria Left atrium is moderately enlarged, left atrial appendage is occluded by watchman device, there is no flow in the left atrial appendage, there is no thrombus in the left atrium or left atrial appendage. Right atrium is mildly enlarged. Intra-atrial septum is intact, there is no flow across the interatrial septum. Agitated saline contrast study did not identify intracardiac shunt. Aortic Valve Bioprosthetic valve noted in the aortic position, the valve is well-seated, leaflets are mobile, there is no restriction to the leaflet mobility. The maximum aortic outflow velocity recorded 3.4 m/s, resulting in a mean gradient across aortic valve of 22 mmHg, valve area is calculated at 1. Two 1 cm???. There is no aortic insufficiency. Mitral Valve Mitral is minimally thickened, there is moderate mitral regurgitation. Tricuspid Valve Tricuspid valve grossly normal, there is mild tricuspid regurgitation. Pulmonic Valve Pulmonic valve is grossly normal. Great Vessels Aortic root is normal size. Ascending, arch and descending thoracic aorta there is no dissection. Inferior vena cava is poorly visualized. Pericardium No significant pericardial effusion noted. Conclusion 1. Biatrial enlargement, normal left ventricular size mild concentric left ventricular hypertrophy, estimated ejection fraction 55% with no regional wall motion abnormality 2. Bioprosthetic valve in the aortic position with mean gradient across aortic valve is 22 mmHg, valve area is 1.21 cm???. 3. Moderate mitral and mild tricuspid regurgitation. 4. Agitated saline contrast study did not identify intracardiac shunt. 5. No significant pericardial effusion noted. Electronically signed by : Benoit Brown MD 06/24/2022 12:08:23
[2022-06-24 08:25] VITALS: BMI 26.4
[2022-06-24 08:50] VITALS: BP 207/86; PULSE 50; RESP 18; TEMP 36.9; O2SAT 95
[2022-06-24 08:53] VITALS: PULSE 50
[2022-06-24 09:25] VITALS: BP 129/54; PULSE 44; RESP 16; TEMP 36.1; O2SAT 99
--- NOTE | 2022-06-24 09:30 | P.PN_ITS ---
[facility] Anesthesia Checklist - Patient Identification Patient Identification: Arm Band - Structural Data Admitted From: Home Planned Operative Procedure/s: MELLISSA Consent for Planned Operative Procedure(s) Verified: Yes Verified Documents: Surgical Consent, History and Physical - NPO Status Verified Time NPO: 00:00 - Additional verifications Anesthesia Reactions: No Hx Blood Transfusions: Yes Blood Transfusion Reaction: No - Airway Assessment C-Spine Mobility Assessed: Yes (mp2) TMJ Mobility Assessed: Yes Dentition: Poor Dentition - Neurological Assessment Level of Consciousness: Awake, Alert - Anesthesia Plan Anesthesia Risk discussed: Yes Anesthesia Plan: Verified ASA Class: III Anesthesia Type: MAC [facility] History I have reviewed the patient's past medical history: Yes Medical History: Reports:: Anxiety, Arrhythmia, Atrial Fibrillation, Cardiomyopathy, Coronary Artery Disease, Depression, Gastroesophageal Reflux Disease(GERD), Hyperlipidemia, Hypertension, Palpitations, Valvular Heart Disease Denies:: Cancer, Diabetes Mellitus Type 1, Diabetes Mellitus Type 2, Internal Pacemaker, Lung Disease, MRSA, Seizures *Have you ever received a pneumonia vaccine?: Yes *Have you received a flu vaccine this season?: Yes Other Medical History: Reports: Anemia, Arthritis. Denies: Blood Transfusion Reaction Anesthesia experience/problems:: nac Laterality Cases: Right: Arthroscopy Knee, Arthroscopy Shoulder Other Surgeries: Yes: Angiogram, Cardiac Catheterization, Cardiac Surgery, Cholecystectomy, Colonoscopy, EGD, Hysterectomy-Total, Mitral Valve Replacement, Open Heart Surgery, Other. No: Pacemaker. Comment Only: Other Valve Replacement (aortic valve) Amputation: No Fractures: No - *Social History Last grade of school completed: High school graduate Smoking Status: Never smoker Alcohol Intake: never Alcohol Intake Frequency:: other Substance Use Type: denies use *Occupational Status:: retired Housing: house Household Members: none *Travel in the last 8 weeks: None - Psychiatric History Pschychiatric History:: Reports:: Anxiety, Depression Family Hx:: Heart Attack, Hypertension
[2022-06-24 10:00] VITALS: BP 177/79; PULSE 44; O2SAT 100
== END 2022-06-24 10:22 | disposition home or self-care (01) ==
LOC: CATHLAB 08:22
PROVIDERS: PCP Emergency Medicine; Visit Provider Internal Medicine Cardiovascular Disease
DX: I48.0 Paroxysmal atrial fibrillation (principal); E78.2 Mixed hyperlipidemia; I10 Essential (primary) hypertension; I27.20 Pulmonary hypertension, unspecified; R00.2 Palpitations; R06.00 Dyspnea, unspecified; R53.83 Other fatigue; Z95.3 Presence of xenogenic heart valve
CPT/HCPCS: 93312

== ENCOUNTER → 2022-08-24 10:06 | Outpatient (CLI) | payer MEDICARE, MEDICAID, SELFPAY ==
--- NOTE | 2022-08-24 10:07 | CA_ITS ---
FINAL REPORT CLINICAL HISTORY: Bilateral LE swelling, palpable knot posterior lt knee FINDINGS: Color Doppler, duplex Doppler and compression sonography of the bilateral lower extremities was performed. There is no evidence of deep venous thrombosis from the level of the groin to the calf. The deep veins are patent and compressible. There is a 1 cm hypoechoic area in the left popliteal fossa of uncertain etiology. Soft tissue mass not excluded. IMPRESSION: No evidence of deep venous thrombosis bilateral lower extremities. 1 cm hypoechoic area area in the left popliteal fossa. Soft tissue mass not excluded. If indicated, consider MRI for further evaluation. Reviewed, Interpreted and Dictated by Rj Zepeda III, MD Transcribed by Molly Garrido Authenticated and . [facility]
== END ==
PROVIDERS: PCP Emergency Medicine; Visit Provider Student in an Organized Health Care Education/Training Program
DX: M25.471 Effusion, right ankle (principal); M25.472 Effusion, left ankle; M25.474 Effusion, right foot; M25.475 Effusion, left foot; R06.02 Shortness of breath
CPT/HCPCS: 93970

== ENCOUNTER → 2022-09-05 09:53 | Outpatient (CLI) | payer MEDICARE, MEDICAID, SELFPAY ==
--- NOTE | 2022-09-05 10:21 | MR_ITS ---
FINAL REPORT CLINICAL HISTORY: Soft tissue mass on US, LEFT KNEE PAIN, KNOT ON BACK OF LEG RIGHT IN BEND PER PATIENT. FINDINGS: Multiplanar MR imaging of the left knee was performed without contrast. There is a tear of the posterior horn of the medial meniscus. The lateral meniscus is intact. The anterior and posterior cruciate ligaments are intact. The medial collateral ligament and lateral ligamentous complex are intact. The patellar and quadriceps tendons are intact. There is no evidence of fracture. There is severe medial compartment and patellar chondromalacia. There is a subchondral cyst of the medial femoral condyle. There is an osteochondral lesion of the medial femoral condyle measuring 8 mm in transverse dimension with adjacent bone marrow edema. There are small subchondral cysts in the region of the tibial spines. Moderate joint effusion is seen. The musculature is intact. There is an 8 mm lobular fluid collection in the popliteal fossa deep to the popliteal artery measuring 10 x 8 x 6 mm consistent with a ganglion cyst. IMPRESSION: Tear posterior horn medial meniscus. Degenerative changes as detailed above. Ganglion cyst in the popliteal fossa. Reviewed, Interpreted and Dictated by Rj Zepeda III, MD Transcribed by Ginna Moreland Authenticated and [facility]
[2022-09-05 10:41] LABS: Blood Urea Nitrogen 20 mg/dl (7-17); Estimated Glomerular Filt Rate 82 ml/min (>60); GFR (African American) 99 ML/MIN (>60)
== END ==
PROVIDERS: PCP Emergency Medicine; Visit Provider Student in an Organized Health Care Education/Training Program
DX: M25.562 Pain in left knee (principal); M71.22 Synovial cyst of popliteal space [Baker], left knee
CPT/HCPCS: 36415; 73721; 82565; 84520

== ENCOUNTER → 2022-09-23 13:42 | Outpatient (CLI) | payer MEDICARE, MEDICAID, SELFPAY ==
[2022-09-23 20:15] LABS: Amphetamine/Metha Screen,Urine Negative ng/ml (<1000)
[2022-09-23 20:16] LABS: Barbiturates Screen,Urine Negative ng/ml (<200); Benzodiazepines Screen,Urine Positive ng/ml (<200)
[2022-09-23 20:17] LABS: Cannabinoid Screen,Urine Negative ng/ml (<50)
[2022-09-23 20:18] LABS: Cocaine Screen,Urine Negative ng/ml (<300); Methadone Screen,Urine Negative ng/ml (<300)
[2022-09-23 20:19] LABS: Opiate Screen,Urine Positive ng/ml (<300)
[2022-09-23 20:20] LABS: Phencyclidine Screen,Urine Negative ng/ml (<25)
== END ==
PROVIDERS: PCP Emergency Medicine; Visit Provider Emergency Medicine
DX: Z79.899 Other long term (current) drug therapy (principal)
CPT/HCPCS: 80305

== ENCOUNTER → 2022-09-28 09:49 | Outpatient (CLI) | payer MEDICARE, MEDICAID, SELFPAY ==
--- NOTE | 2022-09-28 09:54 | XR_ITS ---
FINAL REPORT CLINICAL HISTORY: BILATERAL FOOT PAIN FINDINGS: LEFT FOOT Three weight-bearing views of the left foot demonstrate no acute fracture or dislocation. There are mild degenerative changes. There are small calcaneal spurs. The soft tissues are unremarkable. IMPRESSION: Mild degenerative changes with no acute bony abnormality. Reviewed, Interpreted and Dictated by Rj Zepeda III, MD Transcribed by Maddie Monteiro Authenticated and [facility]
--- NOTE | 2022-09-28 09:54 | XR_ITS ---
FINAL REPORT CLINICAL HISTORY: BILATERAL FOOT PAIN FINDINGS: RIGHT FOOT Three weight-bearing views of the right foot demonstrate no acute fracture or dislocation. There are mild degenerative changes. There are small calcaneal spurs. The soft tissues are unremarkable. IMPRESSION: Mild degenerative changes with no acute bony abnormality. Reviewed, Interpreted and Dictated by Rj Zepeda III, MD Transcribed by Maddie Monteiro Authenticated and [facility]
== END ==
PROVIDERS: PCP Emergency Medicine; Visit Provider Podiatrist
DX: M79.671 Pain in right foot (principal); M79.672 Pain in left foot
CPT/HCPCS: 73630

== ENCOUNTER → 2022-10-19 13:00 | Outpatient (CLI) | payer MEDICARE, MEDICAID, SELFPAY ==
--- NOTE | 2022-10-19 13:03 | US_ITS ---
FINAL REPORT CLINICAL HISTORY: decreased sensation, Leg pain, HTN FINDINGS: ANKLE-BRACHIAL PRESSURE INDICES Pressure indices are as follows: RIGHT LOWER EXTREMITY: Ankle-brachial pressure index: 1.1 Comments: Normal LEFT LOWER EXTREMITY: Ankle-brachial pressure index: 1.1 Comments: Normal CONCLUSION: No evidence of significant obstructive peripheral vascular disease of the lower extremities Reviewed, Interpreted and Dictated by Rj Zepeda III, MD Transcribed by Maddie Monteiro Authenticated and [facility]
== END ==
PROVIDERS: PCP Emergency Medicine; Visit Provider Podiatrist
DX: R09.89 Other specified symptoms and signs involving the circulatory and respiratory systems (principal)
CPT/HCPCS: 93923

== ENCOUNTER → 2023-01-21 11:13 | Outpatient (CLI) | payer MEDICARE, MEDICAID, SELFPAY ==
--- NOTE | 2023-01-21 11:23 | MR_ITS ---
PROCEDURE INFORMATION: Exam: MR Lumbar Spine Without Contrast Exam date and time: 01/21/2023 11:36 AM Age: 77 years old Clinical indication: Low back pain; Additional info: Neurogenic claudication TECHNIQUE: Imaging protocol: Magnetic resonance imaging of the lumbar spine without contrast. COMPARISON: No relevant prior studies available. FINDINGS: Bones/joints: Multilevel moderate facet arthropathy. No fracture. Normal alignment. Spinal cord: Visualized cord, conus medullaris and cauda equina are unremarkable without compression. Discs: Congenitally narrow canal with concentric disc bulges at L1-L2 and L3-L4. No high-grade foraminal stenosis. Soft tissues: Unremarkable. 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
== END ==
PROVIDERS: PCP Emergency Medicine; Visit Provider Emergency Medicine
DX: M48.061 Spinal stenosis, lumbar region without neurogenic claudication (principal); M54.50 Low back pain, unspecified
CPT/HCPCS: 72148; 76376

== ENCOUNTER → 2023-04-10 14:55 | Outpatient (CLI) | payer MEDICARE, MEDICAID, SELFPAY ==
[2023-04-10 17:03] LABS: Basophils % 0.6 % (0.1-2.0); Eosinophils # 0.1 K/mm3 (0.0-0.4); Eosinophils % 2.5 % (0.1-12.0); Hematocrit 33.2 % (37.0-47.0); Hemoglobin 9.8 g/dL (12.2-16.2); Mean Corpuscular HGB Conc 29.5 g/dL (31.8-35.4); Mean Corpuscular Hemoglobin 23.7 pg (27.0-31.2); Mean Corpuscular Volume 80.1 fl (81-99); Mean Platelet Volume 7.3 fl (7.4-10.4); Monocytes # 0.3 K/mm3 (0.1-1.0); Monocytes % 9.2 % (1.7-9.3); Neutrophils # 1.7 K/mm3 (1.8-7.8); Neutrophils % 55.7 % (37.0-80.0); Platelet Count 117 K/mm3 (142-424); Red Blood Count 4.15 M/mm3 (4.20-5.40); Red Cell Distribution Width 15.8 % (11.5-17.5)
[2023-04-10 17:13] LABS: Iron 37 ug/dL (37-170)
[2023-04-10 17:32] LABS: Total Iron Binding Capacity 484 ug/dL (265-497)
[2023-04-10 17:50] LABS: Ferritin 10.1 ng/ml (11.1-264)
== END ==
PROVIDERS: PCP Emergency Medicine; Visit Provider Internal Medicine Medical Oncology
DX: D50.9 Iron deficiency anemia, unspecified (principal)
CPT/HCPCS: 36415; 82728; 83540; 83550; 85025

== ENCOUNTER 2023-04-20 13:04 | Outpatient (CLI) | payer MEDICARE, MEDICAID, SELFPAY ==
[2023-04-20] MEDS: 0.9 % SODIUM CHLORIDE 50 ML 100 ML IV (13:45)
[2023-04-20] MEDS: IRON SUCROSE COMPLEX 200 MG in 0.9 % SODIUM CHLORIDE 100 ML 220 MG IV (13:45)
[2023-04-20 13:50] VITALS: BP 140/70; PULSE 52; RESP 19; TEMP 36.7; O2SAT 89
[2023-04-20 14:20] VITALS: BP 148/60; PULSE 65; RESP 19; O2SAT 95
== END 2023-04-20 14:35 | disposition home or self-care (01) ==
LOC: INF 13:04
PROVIDERS: PCP Emergency Medicine; Visit Provider Internal Medicine Medical Oncology
DX: D64.9 Anemia, unspecified (principal)
CPT/HCPCS: 96365; J1756

== ENCOUNTER 2023-04-26 12:56 | Outpatient (CLI) | payer MEDICARE, MEDICAID, SELFPAY ==
[2023-04-26 13:20] VITALS: BP 140/78; PULSE 58; RESP 19; O2SAT 94
[2023-04-26 14:05] VITALS: BP 129/68; PULSE 51; RESP 18; O2SAT 94
== END 2023-04-26 14:05 | disposition home or self-care (01) ==
LOC: INF 12:57
PROVIDERS: PCP Emergency Medicine; Visit Provider Internal Medicine Medical Oncology
DX: D50.9 Iron deficiency anemia, unspecified (principal)
CPT/HCPCS: 96365; J1756

== ENCOUNTER 2023-05-03 12:42 | Outpatient (CLI) | payer MEDICARE, MEDICAID, SELFPAY ==
[2023-05-03 13:11] VITALS: BP 133/69; PULSE 60; RESP 18; O2SAT 99
[2023-05-03 14:00] VITALS: BP 139/52; PULSE 57; RESP 18
== END 2023-05-03 14:00 | disposition home or self-care (01) ==
PROVIDERS: PCP Emergency Medicine; Visit Provider Internal Medicine Medical Oncology
DX: Z86.39 Personal history of other endocrine, nutritional and metabolic disease (principal)
CPT/HCPCS: 96365; J1756

== ENCOUNTER 2023-05-10 13:14 | Outpatient (CLI) | payer MEDICARE, MEDICAID, SELFPAY ==
[2023-05-10 13:36] VITALS: BP 136/45; PULSE 58; RESP 18; TEMP 36.3; O2SAT 95
[2023-05-10 14:15] VITALS: BP 126/60; PULSE 52; RESP 18; O2SAT 96
== END 2023-05-10 14:20 | disposition home or self-care (01) ==
LOC: INF 13:15
PROVIDERS: PCP Emergency Medicine; Visit Provider Internal Medicine Medical Oncology
DX: R06.09 Other forms of dyspnea (principal); R42 Dizziness and giddiness; D64.9 Anemia, unspecified; Z86.39 Personal history of other endocrine, nutritional and metabolic disease
CPT/HCPCS: 96365; J1756

== ENCOUNTER 2023-05-17 12:53 | Outpatient (CLI) | payer MEDICARE, MEDICAID, SELFPAY ==
[2023-05-17 13:10] VITALS: BP 152/84; PULSE 72; RESP 18; O2SAT 99
[2023-05-17 14:00] VITALS: BMI 29.0
[2023-05-17 14:10] VITALS: BP 161/79; PULSE 82; O2SAT 97
[2023-05-17 14:18] LABS: Basophils % 0.3 % (0.1-2.0); Eosinophils # 0.1 K/mm3 (0.0-0.4); Eosinophils % 3.9 % (0.1-12.0); Hematocrit 29.5 % (37.0-47.0); Hemoglobin 8.5 g/dL (12.2-16.2); Lymphocytes # 0.4 K/mm3 (0.7-4.5); Lymphocytes % 19.8 % (10-50); Mean Corpuscular HGB Conc 28.9 g/dL (31.8-35.4); Mean Corpuscular Volume 79.5 fl (81-99); Mean Platelet Volume 8.2 fl (7.4-10.4); Monocytes # 0.2 K/mm3 (0.1-1.0); Neutrophils # 1.5 K/mm3 (1.8-7.8); Neutrophils % 66.9 % (37.0-80.0); Platelet Count 127 K/mm3 (142-424); Red Blood Count 3.71 M/mm3 (4.20-5.40); Red Cell Distribution Width 20.5 % (11.5-17.5); White Blood Count 2.2 K/mm3 (4.8-10.8)
== END 2023-05-17 14:10 | disposition home or self-care (01) ==
LOC: INF 12:54
PROVIDERS: PCP Emergency Medicine; Visit Provider Internal Medicine Medical Oncology
DX: D64.9 Anemia, unspecified (principal); Z86.39 Personal history of other endocrine, nutritional and metabolic disease
CPT/HCPCS: 85025; 96365; J1756

== ENCOUNTER → 2023-05-22 12:00 | Outpatient (CLI) | payer MEDICARE, MEDICAID, SELFPAY | PROVIDERS: PCP Emergency Medicine; Visit Provider Physician Assistant | DX: D64.9 Anemia, unspecified (principal); E78.2 Mixed hyperlipidemia; I35.0 Nonrheumatic aortic (valve) stenosis; I45.5 Other specified heart block; K31.819 Angiodysplasia of stomach and duodenum without bleeding; R06.02 Shortness of breath; Z95.3 Presence of xenogenic heart valve; Z95.818 Presence of other cardiac implants and grafts | CPT/HCPCS: 93306 ==

== ENCOUNTER → 2023-05-31 13:34 | Outpatient (CLI) | payer MEDICARE, MEDICAID, SELFPAY ==
--- NOTE | 2023-05-31 13:34 | MR_ITS ---
FINAL REPORT CLINICAL HISTORY: fatigue, headaches and dizziness COMPARISON: None FINDINGS: Multiple projection images of the neck arterial vasculature were obtained without contrast. Raw data images were also reviewed. The right common carotid artery is patent. The right cervical internal carotid artery is patent. The right vertebral artery is patent. The left common carotid artery is patent. The left cervical internal carotid artery is patent. The left vertebral artery is patent. The vertebral arteries are codominant. IMPRESSION: No major vessel occlusion. Reviewed, Interpreted and Dictated by Venus Ty MD Transcribed by Kristen Colin Authenticated and . [facility]
--- NOTE | 2023-05-31 13:34 | MR_ITS ---
FINAL REPORT TECHNIQUE: Multiplanar MR without contrast CLINICAL HISTORY: fatigue, headaches and dizziness COMPARISON: None FINDINGS: Diffusion sequences show no signal abnormality to indicate acute infarct. No mass, hemorrhage or edema is seen. Age-appropriate atrophy is present, and the ventricles are normal. There are a few small nonspecific white matter changes, of doubtful significance. IMPRESSION: No signal abnormality to indicate acute infarct. Age-appropriate atrophy and a few nonspecific white matter changes, compatible with ischemia microvascular disease. Reviewed, Interpreted and Dictated by Venus Ty MD Transcribed by Kristen Colin Authenticated and [facility]
--- NOTE | 2023-05-31 13:34 | MR_ITS ---
FINAL REPORT TECHNIQUE: 3-D [id number] sequences without contrast CLINICAL HISTORY: fatigue, dizziness, headaches FINDINGS: The distal internal carotid arteries are unremarkable. The left MCA and ACAs are unremarkable. There is a right MCA stenosis considered 50% or greater. This extends into one of the MCA trifurcation branches. Basilar artery is widely patent. rrt are intact. No aneurysm is seen. IMPRESSION: Distal right MCA branch disease. Reviewed, Interpreted and Dictated by Venus Ty MD Transcribed by Kristen Colin Authenticated and [facility]
== END ==
PROVIDERS: PCP Emergency Medicine; Visit Provider Emergency Medicine
DX: R53.83 Other fatigue (principal); R51.9 Headache, unspecified; R42 Dizziness and giddiness
CPT/HCPCS: 70544; 70547; 70551

== ENCOUNTER → 2023-06-19 15:13 | Outpatient (CLI) | payer MEDICARE, MEDICAID, SELFPAY ==
[2023-06-19 15:34] LABS: Basophils % 0.6 % (0.1-2.0); Eosinophils # 0.2 K/mm3 (0.0-0.4); Eosinophils % 3.7 % (0.1-12.0); Hemoglobin 12.3 g/dL (12.2-16.2); Lymphocytes # 1.2 K/mm3 (0.7-4.5); Mean Corpuscular HGB Conc 29.9 g/dL (31.8-35.4); Mean Corpuscular Hemoglobin 24.5 pg (27.0-31.2); Mean Platelet Volume 9.5 fl (7.4-10.4); Monocytes # 0.3 K/mm3 (0.1-1.0); Monocytes % 6.1 % (1.7-9.3); Neutrophils # 2.4 K/mm3 (1.8-7.8); Neutrophils % 59.7 % (37.0-80.0); Platelet Count 153 K/mm3 (142-424); Red Cell Distribution Width 19.8 % (11.5-17.5)
[2023-06-19 15:52] LABS: Anion Gap 15.2 mEq/L (5-15); Blood Urea Nitrogen 20 mg/dl (7-17); Calcium 8.8 mg/dl (8.4-10.2); Carbon Dioxide 25 mmol/L (22.0-30.0); Chloride 106 mmol/L (98-107); Estimated Glomerular Filt Rate 82 ml/min (>60); GFR (African American) 99 ML/MIN (>60); Glucose 101 mg/dl (74-100); Iron 144 ug/dL (37-170); Potassium 5.2 mmoL/L (3.5-5.1); Sodium 141 mmol/L (136-145)
[2023-06-19 16:02] LABS: NT Pro Brain Natriuretic Pep. 1730 pg/mL (0-450); Total Iron Binding Capacity 480 ug/dL (265-497)
[2023-06-19 16:28] LABS: Ferritin 24.4 ng/ml (11.1-264)
== END ==
PROVIDERS: PCP Emergency Medicine; Visit Provider Physician Assistant
DX: D64.9 Anemia, unspecified (principal); E78.2 Mixed hyperlipidemia; I07.1 Rheumatic tricuspid insufficiency; I10 Essential (primary) hypertension; I27.20 Pulmonary hypertension, unspecified; I35.0 Nonrheumatic aortic (valve) stenosis; I48.0 Paroxysmal atrial fibrillation; K31.819 Angiodysplasia of stomach and duodenum without bleeding; R06.02 Shortness of breath; Z95.3 Presence of xenogenic heart valve; Z95.818 Presence of other cardiac implants and grafts; R79.89 Other specified abnormal findings of blood chemistry
CPT/HCPCS: 36415; 80048; 82728; 83540; 83550; 83880; 85025

== ENCOUNTER 2023-07-03 09:42 | Observation (INO) | payer MEDICARE, MEDICAID, SELFPAY ==
[2023-06-30 17:08] VITALS: BMI 28.8
[2023-07-03 07:59] VITALS: BP 122/59; PULSE 72; RESP 18; TEMP 36.7; O2SAT 95
--- NOTE | 2023-07-03 08:06 | P.PNANES_ITS ---
[facility] Disclaimer: The information contained in this section may have been updated after the patient was seen, as this information can be updated by other users. Medical History Anemia Aortic stenosis GAVE (gastric antral vascular ectasia) Mixed hyperlipidemia Osteoarthritis of left knee Presence of Watchman left atrial appendage closure device Sinus bradycardia Sinus pause SOB (shortness of breath) Tricuspid regurgitation Surgical History History of aortic valve replacement with bioprosthetic valve History of cholecystectomy History of colonoscopy History of hysterectomy History of rotator cuff surgery Family History Other Family history of multiple sclerosis Social History Smoking Status: Never smoker second hand exposure: No alcohol intake: never substance use type: denies use current occupational status: retired Travel in the last 8 weeks: None household members: none housing: house current occupational exposures/hazards: No caffeine: Yes [facility] Anesthesia Checklist Patient Identification Patient Identification: Arm Band and Verbal (Name & ) Structural Data Admitted From: Home Planned Operative Procedure/s: MELLISSA Consent for Planned Operative Procedure(s) Verified: Yes NPO Status Verified Time NPO: 00:00 Additional verifications Anesthesia Reactions: No Hx Blood Transfusions: Yes Blood Transfusion Reaction: No Airway Assessment Mallampati Score:: Class II C-Spine Mobility Assessed: Yes TMJ Mobility Assessed: Yes Dentition: Good Dentition Neurological Assessment Level of Consciousness: Awake Hx Seizures: No Numbness or tingling in extremities: No Anesthesia Plan Anesthesia Risk discussed: Yes Anesthesia Plan: Verified ASA Class: III Anesthesia Type: MAC
[2023-07-03 08:24] LABS: Chloride 104 mmol/L (98-107); Sodium 138 mmol/L (136-145)
[2023-07-03 08:27] LABS: Blood Urea Nitrogen 43 mg/dl (7-17); Creatinine Clearance Estimated 58 mL/min (50-200); Estimated Glomerular Filt Rate 48 ml/min (>60); GFR (African American) 59 ML/MIN (>60)
[2023-07-03 08:28] LABS: Anion Gap 16.7 mEq/L (5-15); Calcium 9.4 mg/dl (8.4-10.2); Carbon Dioxide 24 mmol/L (22.0-30.0); Glucose 99 mg/dl (74-100)
[2023-07-03 08:31] LABS: Potassium 6.7 mmoL/L (3.5-5.1)
[2023-07-03 08:33] LABS: INR 1.02 (0.9-1.1)
--- NOTE | 2023-07-03 09:53 | PC.NURSE ---
arrived by stretcher from surgery
[2023-07-03 10:04] VITALS: BP 137/82; PULSE 72; RESP 20; TEMP 36.6; O2SAT 94; BMI 28.8
--- NOTE | 2023-07-03 10:18 | PC.NURSE ---
1010 received verbal orders from Kwadwo YOUNG and Dr Newell. pt to be placed on heart monitor, EKG needed at this time as well.
--- NOTE | 2023-07-03 10:22 | EXP.HP ---
History of Present Illness *Admission Date: 07/03/23 *Reason for visit:: murmur *History of present illness: Ms. Bahena is a pleasant 77-year-old female with history of aortic valve replacement in 2013, aggressive shortness of breath, A-fib, Watchman device. She was scheduled to come in today for outpatient MELLISSA due to findings on TTE of possible prosthetic valve dysfunction. Preop labs obtained showing potassium of 6.7 which is a significant change from recent lab work. Also had elevated BUN and creatinine. Cardiology requested admission for treatment of her hyperkalemia and monitoring overnight with potential MELLISSA tomorrow. Patient recently increased on her Lasix with improvement in shortness of breath. She is not on any potassium sparing diuretics. Does take lisinopril daily. At this time denies any chest pain, nausea, vomiting, confusion. Mobility at baseline. Uses a cane to ambulate. Alert and oriented x4 PFSH PFS Disclaimer: The information contained in this section may have been updated after the patient was seen, as this information can be updated by other users. Medical History Afib Anemia Aortic stenosis Depression GAVE (gastric antral vascular ectasia) GERD (gastroesophageal reflux disease) HLD (hyperlipidemia) Mixed hyperlipidemia Osteoarthritis of left knee Presence of Watchman left atrial appendage closure device Sinus bradycardia Sinus pause SOB (shortness of breath) Tricuspid regurgitation Surgical History History of aortic valve replacement with bioprosthetic valve History of cholecystectomy History of colonoscopy History of hysterectomy History of rotator cuff surgery Family History Family history of multiple sclerosis Social History Smoking Status: Never smoker second hand exposure: No alcohol intake: never substance use type: denies use current occupational status: retired Travel in the last 8 weeks: None household members: none housing: house current occupational exposures/hazards: No caffeine: Yes Review of Systems Review of Systems Review of systems (narrative): 14 point review of systems performed, pertinent positives and negatives as per [facility] Meds Home Medications and Allergies Home Medications Medication Instructions Recorded Confirmed Type citalopram 20 mg tablet 20 mg PO DAILY Depression 11/20/17 07/03/23 History aspirin 81 mg tablet,delayed 81 mg PO DAILY Heart Disease 04/13/18 07/03/23 History release (Adult Low Dose Aspirin) bupropion HCl 150 mg 24 hr tablet, 150 mg PO DAILY Depression 12/31/19 07/03/23 History extended release amlodipine 5 mg tablet 5 mg PO DAILY blood pressure 05/10/23 07/03/23 History bisoprolol fumarate 10 mg tablet 10 mg PO DAILY blood pressure 05/10/23 07/03/23 History furosemide 20 mg tablet 20 mg PO .EVERY OTHER DAY Fluid 05/10/23 07/03/23 History estradiol 0.5 mg tablet 0.5 mg PO DAILY hormone 05/17/23 07/03/23 History replacement therapy alprazolam 0.5 mg tablet (Xanax) 0.5 mg PO TIDP PRN Anxiety 06/30/23 07/03/23 History ferrous sulfate 325 mg (65 mg 325 mg PO DAILY Supplement 06/30/23 07/03/23 History iron) tablet lansoprazole 30 mg capsule,delayed 30 mg PO DAILY Acid Reflux 06/30/23 07/03/23 History release lisinopril 20 mg tablet 20 mg PO DAILY Hypertension 06/30/23 07/03/23 History ondansetron HCl 8 mg tablet 8 mg PO BIDP PRN Nausea And 06/30/23 07/03/23 History Vomiting ropinirole 2 mg tablet 2 - 4 mg PO HS restless leg 06/30/23 07/03/23 History syndrome sotalol 80 mg tablet 40 mg PO BID heart rate 06/30/23 07/03/23 History clopidogrel 75 mg tablet 75 mg PO DAILY platelet inhibitor 07/03/23 07/03/23 History gabapentin 600 mg tablet 600 mg PO QID Pain 07/03/23 07/03/23 History oxycodone-acetaminophen 1
[2023-07-03 10:23] VITALS: PULSE 72; O2SAT 94
--- NOTE | 2023-07-03 10:24 | ECG_ITS ---
APPROVED REPORT Exam: Resting ECG HR:73 bpm ECG Measurements Heart Rate 73 AXES MT 307 P 64 QRSd 126 QRS -46 QT 428 T -12 QTc 454 Conclusion SINUS RHYTHM WITH FIRST DEGREE AV BLOCK POSSIBLE RIGHT VENTRICULAR CONDUCTION DELAY [RSR (QR) IN V1/V2] LEFT ANTERIOR FASCICULAR BLOCK [QRS AXIS <= -45, QR IN I, RS IN II] ABNORMAL ECG UNCONFIRMED REPORT Electronically signed by : Elian Norris MD 07/04/2023 17:23:13
--- NOTE | 2023-07-03 10:34 | PC.NURSE ---
1033 verbal order received to consult cardiology. dr Lujan notified of EKG results 1030 Kwadwo Rodriguez notified of ekg results.
--- NOTE | 2023-07-03 11:34 | HMH.PHAINT1 ---
Pharmacy Intervention Comments: home medication list verified using list from outpatient pharmacy and pt interview
--- NOTE | 2023-07-03 11:56 | EXP.CARD.CON ---
History of Present Illness History of Present Illness Consult date: 07/03/23 Requesting physician: Mickey Lujan Chief complaint: Hyperkalemia Additional Medical History:: 1. Carotid artery stenosis A. CNI in showed:bilateral ICA's 20-49%. 2. HTN A. Echo, 05/28, EF 55-60% with grade 3 diastolic dysfunction 3. Hx of PAF A. 2nd Loop recorder placed, 08/2020. Pafib noted. B. On sotalol, QTc 462 msecs C. s/p watchman device (2020). D. Cannot take A/C due to GI bleeding from GAVE disease. 4. Anemia is managed by Dr. Aguila. A. Recent IV iron bolus infusion, 06/2023 B. EGD, 12/2020, Dr. Hayes, Mild GAVE s/p APC ablation, mild chronic gastritis 5. Hyperlipidemia , LDL goal is < 100. 6. Hx of Aortic valve replacement in 2014, OPEN HEART A. Transthoracic Echo-MAY 2023 -Normal EF 55-60%, Grade III DD, bioprosthetic AV with HERIBERTO of 1.0 cm squared, mean gradient 35 mm Hg, moderate MR, severe TR with RVSP of 61 mm Hg and notation of RA/RV dilatation and septal flattening. B. Transthoracic Echo, 06/08/2022, Bioprosthetic AV, mean gradient 33 mmHg, HERIBERTO is 0.9 cm???, no aortic insufficiency. C. MELLISSA, 06/24/2022, showed HERIBERTO of 1.21 cm squared. Moderate MR and Mild TR. (Prosthetic aortic valve is functioning appropriately). 7. Hyperkalemia, 07/03/2023, potassium of 6.7 8. Dizziness, 05/2023 A. Brain MRI, 05/31/2023, no acute infarct. Age-appropriate atrophy and a few nonspecific white matter changes compatible with ischemic microvascular disease noted. B. Head MRI, 05/31/2023, distal right MCA branch disease C. Neck MRI, 05/31/2023, no major vessel occlusion. 9. Low back pain A. Lumbar spine MRI, 01/21/2023, congenitally narrow canal with mild multilevel disc bulges and facet arthropathy 10. History of normal coronary arteries A. [facility], 05/2015, Normal coronary arteries, mild pulmonary hypertension History of present illness: 77-year-old white female with history of aortic valve replacement in 2013 with progressive shortness of breath and dizziness recently. Transthoracic echocardiogram worrisome for prosthetic valve dysfunction with plans for MELLISSA today. Preop labs obtained today with a potassium of 6.7 noted which was a significant change from recent lab work with decision made to admit patient for correction and plans for MELLISSA in a.m. Diuretics recently increased with some improvement in the patient's shortness of breath. [facility] Disclaimer: The information contained in this section may have been updated after the patient was seen, as this information can be updated by other users. Medical History (Updated 07/03/23 @ 12:14 by HECTOR [place]) Afib Anemia Aortic stenosis Depression GAVE (gastric antral vascular ectasia) GERD (gastroesophageal reflux disease) HLD (hyperlipidemia) Mixed hyperlipidemia Osteoarthritis of left knee Presence of Watchman left atrial appendage closure device Sinus bradycardia Sinus pause SOB (shortness of breath) Tricuspid regurgitation Surgical History History of aortic valve replacement with bioprosthetic valve History of cholecystectomy History of colonoscopy History of hysterectomy History of rotator cuff surgery Family History Other Family history of multiple sclerosis Social History (Updated 07/03/23 @ 10:12 by Anna Geiger RN) Smoking Status: Never smoker second hand exposure: No alcohol intake: never substance use type: denies use current occupational status: retired Travel in the last 8 weeks: None household members: none housing: house current occupational exposures/hazards: No caffeine: Yes Review of Systems ENT Ears, Nose, Mouth, and Throat: Reports vertigo *Cardiovascular Cardiovascular: Denies chest pain and Reports dyspnea on exertion *Respiratory Respiratory: Reports dyspnea on exertion *Neurolo
[2023-07-03 12:00] VITALS: BP 144/78; PULSE 68; PULSE 80; RESP 16; TEMP 36.8; O2SAT 94
[2023-07-03 12:34] LABS: NT Pro Brain Natriuretic Pep. 1730 pg/mL (0-450)
[2023-07-03 16:00] VITALS: BP 119/68; PULSE 80; PULSE 81; RESP 18; TEMP 36.7; O2SAT 92
[2023-07-03 16:36] LABS: Chloride 106 mmol/L (98-107); Potassium 5.5 mmoL/L (3.5-5.1); Sodium 139 mmol/L (136-145)
[2023-07-03 16:39] LABS: Anion Gap 13.5 mEq/L (5-15); Blood Urea Nitrogen 36 mg/dl (7-17); Calcium 9.2 mg/dl (8.4-10.2); Carbon Dioxide 25 mmol/L (22.0-30.0); Creatinine Clearance Estimated 64 mL/min (50-200); Estimated Glomerular Filt Rate 54 ml/min (>60); GFR (African American) 65 ML/MIN (>60); Glucose 91 mg/dl (74-100)
[2023-07-03 20:00] VITALS: BP 95/53; PULSE 60; PULSE 79; RESP 18; TEMP 36.6; O2SAT 91
[2023-07-04] VITALS (21 sets, daily range): BP systolic 84–144; BP diastolic 44–73; PULSE 60–83; RESP 12–18; TEMP 36.4–37; O2SAT 90–100; BMI 28.5
[2023-07-04 06:39] LABS: Basophils % 0.7 % (0.1-2.0); Eosinophils # 0.1 K/mm3 (0.0-0.4); Eosinophils % 3.4 % (0.1-12.0); Hematocrit 38.5 % (37.0-47.0); Hemoglobin 12.2 g/dL (12.2-16.2); Lymphocytes # 0.7 K/mm3 (0.7-4.5); Lymphocytes % 33.3 % (10-50); Mean Corpuscular HGB Conc 31.8 g/dL (31.8-35.4); Mean Corpuscular Hemoglobin 25.9 pg (27.0-31.2); Mean Corpuscular Volume 81.5 fl (81-99); Mean Platelet Volume 9.3 fl (7.4-10.4); Monocytes # 0.2 K/mm3 (0.1-1.0); Monocytes % 7.7 % (1.7-9.3); Neutrophils # 1.1 K/mm3 (1.8-7.8); Neutrophils % 54.9 % (37.0-80.0); Platelet Count 104 K/mm3 (142-424); Red Blood Count 4.72 M/mm3 (4.20-5.40); Red Cell Distribution Width 18.9 % (11.5-17.5)
[2023-07-04 06:45] LABS: Chloride 105 mmol/L (98-107); Sodium 138 mmol/L (136-145)
[2023-07-04 06:48] LABS: Alanine Aminotransferase 18 U/L (12-78); Albumin Level 3.8 g/dl (3.5-5.0); Albumin/Globulin Ratio 1.2 (1.1-1.8); Alkaline Phosphatase 98 U/L (38-126); Aspartate Amino Transferase 32 U/L (14-36); Bilirubin,Total 0.4 mg/dl (0.2-1.3); Blood Urea Nitrogen 32 mg/dl (7-17); Calcium 9.1 mg/dl (8.4-10.2); Carbon Dioxide 26 mmol/L (22.0-30.0); Creatinine Clearance Estimated 63 mL/min (50-200); Estimated Glomerular Filt Rate 54 ml/min (>60); GFR (African American) 65 ML/MIN (>60); Globulin 3.2 g/dL (1.3-3.2); Glucose 99 mg/dl (74-100)
--- NOTE | 2023-07-04 07:03 | PC.NURSE ---
NO ACUTE CHANGES. PT RESTED WELL. NO C/O PAIN THIS SHIFT. VSS.
--- NOTE | 2023-07-04 07:35 | EXP.ANES.CKL ---
[facility] Disclaimer: The information contained in this section may have been updated after the patient was seen, as this information can be updated by other users. Medical History Afib Anemia Aortic stenosis Depression GAVE (gastric antral vascular ectasia) GERD (gastroesophageal reflux disease) HLD (hyperlipidemia) Mixed hyperlipidemia Osteoarthritis of left knee Presence of Watchman left atrial appendage closure device Sinus bradycardia Sinus pause SOB (shortness of breath) Tricuspid regurgitation Surgical History History of aortic valve replacement with bioprosthetic valve History of cholecystectomy History of colonoscopy History of hysterectomy History of rotator cuff surgery Family History Other Family history of multiple sclerosis Social History Smoking Status: Never smoker second hand exposure: No alcohol intake: never substance use type: denies use current occupational status: retired Travel in the last 8 weeks: None household members: none housing: house current occupational exposures/hazards: No caffeine: Yes [facility] Anesthesia Checklist Patient Identification Patient Identification: Arm Band and Verbal (Name & ) Structural Data Admitted From: Inpatient Planned Operative Procedure/s: MELLISSA Consent for Planned Operative Procedure(s) Verified: Yes NPO Status Verified Time NPO: 00:00 Chart Verification Results Verified: CBC and BMP Additional verifications Anesthesia Reactions: No Hx Blood Transfusions: Yes Blood Transfusion Reaction: No Airway Assessment Mallampati Score:: Class III C-Spine Mobility Assessed: Yes TMJ Mobility Assessed: Yes Dentition: Good Dentition Neurological Assessment Level of Consciousness: Awake Hx Seizures: No Numbness or tingling in extremities: No Anesthesia Plan Anesthesia Risk discussed: Yes Anesthesia Plan: Verified ASA Class: III Anesthesia Type: MAC
--- NOTE | 2023-07-04 08:26 | EXP.CARD.PN ---
Subjective Subjective Date: 07/04/23 Time: 08:26 Principal diagnosis: Prosthetic aortic valve stenosis Interval history: 77-year-old white female in bed in no acute distress. No complaints overnight. This morning potassium is in the normal range of 5.0 Patient has been n.p.o. this morning and willing to proceed with MELLISSA today. Exam Data for Last 24 hours Vital signs and Labs for Last 24 Hours: Temp Pulse Resp BP Pulse Ox O2 Del Method 98.6 F 82 18 94/50 L 97 Room Air 07/04/23 04:00 07/04/23 04:00 07/04/23 04:00 07/04/23 04:00 07/04/23 04:00 07/04/23 06:51 Laboratory Results - last 24 hr 07/03/23 08:10: PT 11.0, INR 1.02, Sodium 138, Potassium 6.7 H*, Chloride 104, Carbon Dioxide 24, Anion Gap 16.7 H, BUN 43 H, Creatinine 1.10 H, Estimated Creat Clear 58, Estimated GFR 48 L, Est GFR ( Amer) 59, Glucose 99, Calcium 9.4, NT-Pro-B Natriuret Pep 1730 H 07/03/23 16:15: Sodium 139, Potassium 5.5 H, Chloride 106, Carbon Dioxide 25, Anion Gap 13.5, BUN 36 H, Creatinine 1.00, Estimated Creat Clear 64, Estimated GFR 54 L, Est GFR ( Amer) 65, Glucose 91, Calcium 9.2 07/04/23 06:05: WBC 2.0 L, RBC 4.72, Hgb 12.2, Hct 38.5, MCV 81.5, MCH 25.9 L, MCHC 31.8, RDW 18.9 H, Plt Count 104 L, MPV 9.3, Neut % (Auto) 54.9, Lymph % (Auto) 33.3, [place] % (Auto) 7.7, Eos % (Auto) 3.4, Baso % (Auto) 0.7, Neut # (Auto) 1.1 L, Lymph # (Auto) 0.7, [place] # (Auto) 0.2, Eos # (Auto) 0.1, Baso # (Auto) 0.0, Sodium 138, Potassium 5.0, Chloride 105, Carbon Dioxide 26, Anion Gap 12.0, BUN 32 H, Creatinine 1.00, Estimated Creat Clear 63, Estimated GFR 54 L, Est GFR ( Amer) 65, Glucose 99, Calcium 9.1, Magnesium 2.0, Total Bilirubin 0.4, AST 32, ALT 18, Alkaline Phosphatase 98, Total Protein 7.0, Albumin 3.8, Globulin 3.2, Albumin/Globulin Ratio 1.2 I & O for Last 24 hours: Intake & Output 07/01/23 07/02/23 07/03/23 07/04/23 11:59 11:59 11:59 11:59 Intake Total 720 / 720 Output Total 0 / 0 Balance 720 / 720 Weight 184 lb 184 lb 2 oz 182 lb 3 oz Constitutional Constitutional: no acute distress *Routine Respiratory Exam Respiratory: Present CTA bilaterally *Routine Cardiovascular Exam Cardiovascular: Present RRR and murmur *Routine Extremities Exam Extremities: Absent edema *Routine Neurological Exam Neurological: Present alert, oriented X3 and CN II-XII intact Progress Note: A&P Assessment and plan (1) Acute hyperkalemia: Status: Acute (2) LAURYN (acute kidney injury): Status: Acute (3) History of aortic valve replacement with bioprosthetic valve: Status: Chronic (4) Hypertensive cardiomegaly without heart failure: Status: Chronic (5) Pulmonary hypertension: Status: Chronic (6) PAF (paroxysmal atrial fibrillation): Status: Chronic (7) HTN (hypertension): Status: Chronic (8) SOB (shortness of breath): Status: Acute Assessment and Plan Assessment and Plan for All Diagnoses:: 1. Hyperkalemia, resolved -Dr. Lujan is managing 2. Prosthetic aortic valve (open heart with vavle replacement, 2015) with suspected recurrent stenosis, HERIBERTO 1.0 cm squared. Pt is symptomatic with increased SOA. -MELLISSA today 3. HFpEF -Grade 3 Diastolic dysfunction on recent echo with severe TR and RVSP of 61 mm Hg with RA/RV dilatation and septal flattening -BNP still elevated at 1730 (same as two weeks ago) 4. PAF -no a/c due to GAVE -on sotalol with Loop recorder in place -Watchman device in place 5. Chronic anemia and low platelets, managed by Dr. Aguila -recent iron infusions -holding ASA and plavix -heparin ordered 6. HTN -continuing amlodipine and sotalol -monitor BP/HR while holding lisinopril and bisoprolol Likely home later today.
--- NOTE | 2023-07-04 10:38 | CA_ITS ---
APPROVED REPORT EXAM: Comprehensive 2D, Doppler, and color-flow Echocardiogram Drawing Operator: Dalila Strong RT(R) Ht: 5 ft 7 in Wt: 182lbs BSA: 1.94 BP: 94/50 mmHg Indications: AVR, watchman device, HTN, HLD, SOB, hx CM Left Ventricle The left ventricle is normal size. The left ventricular systolic function is normal. The left ventricular ejection fraction is within the normal range. There is increased left ventricular wall thickness. There is normal LV segmental wall motion. LVEF is 55-60%. Right Ventricle Right ventricle is mildly dilated. Right ventricle is mildly hypokinetic. Atria The left atrium size is normal. There are no masses visualized in the LA. The patient is s/p Watchman device. The Watchman is well-seated in position in the NELLY orifice. There are no ivan-device leaks or masses/thrombi noted. The right atrium size is normal. Eustachian valve is noted in the RA The patient is s/p iatrogenic ASD for Watchman procedure. Doppler evaluation in this study demonstrates no interatrial shunt. Agitated saline administration (bubble study) demonstrates no evidence of interatrial shunt in the hemodynamic conditions at the time of the MELLISSA. Aortic Valve s/p bioprosthetic AVR. There is hyperechoic thickening with centripetal growth noted along the plan of the AVR. Findings are most likely due to pannus formation considering the morphological appearance and chronicity (but thrombus cannot be entirely ruled out). The bioprosthetic valve leaflets are difficult to visualize due to shadowing artifact, but grossly there is restricted motion of the leaflets. There is no aortic valvular stenosis. Note that AV gradients may be underestimated on this MELLISSA. There is no central aortic regurgitation. There is trace paravalvular aortic regurgitation present. Mitral Valve The mitral valve is normal in structure. No evidence of mitral valve stenosis. Mean MV gradient is 3 mmHg (HR 74 bpm). Mild mitral regurgitation. Tricuspid Valve The tricuspid valve is thin and pliable. Mild tricuspid regurgitation. RVSP is 20 mmHg + RA pressure. Pulmonic Valve The pulmonary valve is normal in structure. Trace pulmonic regurgitation. Great Vessels The aortic root is normal in size. The ascending aorta is mildly dilated. Ascending aorta measures 3.8 cm. Pericardium There is no pericardial effusion. Other Information Study Quality: Adequate Conclusion Normal LV systolic function. Mild RV dilation with mild reduction in RV function. s/p bioprosthetic AVR. Thickening along the AV leaflets is noted, most likely representing pannus formation considering chronicity and morphological appearance on MELLISSA, resulting in restricted AV leaflet motion. Trace paravalvular AI. No central AI. No evidence of on this MELLISSA (AV gradients may be underestimated). s/p iatrogenic ASD. No evidence of interatrial shunt this MELLISSA with either color Doppler or agitated saline (bubble study). s/p Watchman procedure. The Watchman device is well-seated. No evidence of ivan-device leaks or masses. Further evaluation with stress TTE is recommended to evaluate the patient's functional capacity and severity of in the setting of known high AV gradients on resting TTE. Electronically signed by : Lanette Newell, 07/04/2023 13:55:09
--- NOTE | 2023-07-04 17:23 | EXP.PN ---
Subjective *Date: 07/04/23 *Time: 17:23 Exam Data for Last 24 hours Vital signs and Labs for Last 24 Hours: Temp Pulse Resp BP Pulse Ox O2 Del Method O2 Flow Rate 97.7 F 77 16 101/60 L 93 L Room Air 2 07/04/23 16:00 07/04/23 16:00 07/04/23 16:00 07/04/23 16:00 07/04/23 16:00 07/04/23 16:00 07/04/23 11:40 Laboratory Results - last 24 hr 07/04/23 06:05: WBC 2.0 L, RBC 4.72, Hgb 12.2, Hct 38.5, MCV 81.5, MCH 25.9 L, MCHC 31.8, RDW 18.9 H, Plt Count 104 L, MPV 9.3, Neut % (Auto) 54.9, Lymph % (Auto) 33.3, [place] % (Auto) 7.7, Eos % (Auto) 3.4, Baso % (Auto) 0.7, Neut # (Auto) 1.1 L, Lymph # (Auto) 0.7, [place] # (Auto) 0.2, Eos # (Auto) 0.1, Baso # (Auto) 0.0, Sodium 138, Potassium 5.0, Chloride 105, Carbon Dioxide 26, Anion Gap 12.0, BUN 32 H, Creatinine 1.00, Estimated Creat Clear 63, Estimated GFR 54 L, Est GFR ( Amer) 65, Glucose 99, Calcium 9.1, Magnesium 2.0, Total Bilirubin 0.4, AST 32, ALT 18, Alkaline Phosphatase 98, Total Protein 7.0, Albumin 3.8, Globulin 3.2, Albumin/Globulin Ratio 1.2 I & O for Last 24 hours: Intake & Output 07/01/23 07/02/23 07/03/23 07/04/23 23:59 23:59 23:59 23:59 Intake Total 480 / 480 630 / 630 Output Total 0 / 0 0 / 0 Balance 480 / 480 630 / 630 Weight 83.518 kg 82.639 kg
--- NOTE | 2023-07-04 19:05 | EXP.DC.SUM ---
General Admission date:: 07/03/23 Discharge date: 07/04/23 HPI HPI HPI: Forwarded from Admission H&P: Ms. Bahena is a pleasant 77-year-old female with history of aortic valve replacement in 2013, aggressive shortness of breath, A-fib, Watchman device. She was scheduled to come in today for outpatient MELLISSA due to findings on TTE of possible prosthetic valve dysfunction. Preop labs obtained showing potassium of 6.7 which is a significant change from recent lab work. Also had elevated BUN and creatinine. Cardiology requested admission for treatment of her hyperkalemia and monitoring overnight with potential MELLISSA tomorrow. Patient recently increased on her Lasix with improvement in shortness of breath. She is not on any potassium sparing diuretics. Does take lisinopril daily. At this time denies any chest pain, nausea, vomiting, confusion. Mobility at baseline. Uses a cane to ambulate. Alert and oriented x4 Hospital Course Hospital Course Hospital Course: The patient's hyperkalemia and jaime resolved after 1L NS was given over 4 hours and a dose of iv lasix 40mg. EKG did not reveal overt changes from hyperkalemia. Blood pressures were within normal range despite o=holding the patient's lisinopril; this was discontinued when she was discharged. Her other home medications were resumed. The patient had a MELLISSA, results are below. Further evlauation with stress TTE was recomended to evaluate the patient's functional capacity and severity of aortic stenosis in the setting of known high AV gradients on resting TTE. The patient will need to follow up with her PCP and Cardiology in 1 week. Disclaimer: Discharge orders were handwritten during EMR downtime. Exam Data for Last 24 hours Vital signs and Labs for Last 24 Hours: Temp Pulse Resp BP Pulse Ox O2 Del Method O2 Flow Rate 97.7 F 77 16 101/60 L 93 L Room Air 2 07/04/23 16:00 07/04/23 16:00 07/04/23 16:07/04/23 16:07/04/23 16:07/04/23 16:07/04/23 11:40 Laboratory Results - last 24 hr 07/04/23 06:05: WBC 2.0 L, RBC 4.72, Hgb 12.2, Hct 38.5, MCV 81.5, MCH 25.9 L, MCHC 31.8, RDW 18.9 H, Plt Count 104 L, MPV 9.3, Neut % (Auto) 54.9, Lymph % (Auto) 33.3, [place] % (Auto) 7.7, Eos % (Auto) 3.4, Baso % (Auto) 0.7, Neut # (Auto) 1.1 L, Lymph # (Auto) 0.7, [place] # (Auto) 0.2, Eos # (Auto) 0.1, Baso # (Auto) 0.0, Sodium 138, Potassium 5.0, Chloride 105, Carbon Dioxide 26, Anion Gap 12.0, BUN 32 H, Creatinine 1.00, Estimated Creat Clear 63, Estimated GFR 54 L, Est GFR ( Amer) 65, Glucose 99, Calcium 9.1, Magnesium 2.0, Total Bilirubin 0.4, AST 32, ALT 18, Alkaline Phosphatase 98, Total Protein 7.0, Albumin 3.8, Globulin 3.2, Albumin/Globulin Ratio 1.2 I & O for Last 24 hours: Intake & Output 07/01/23 07/02/23 07/03/23 07/04/23 23:59 23:59 23:59 23:59 Intake Total 480 / 480 870 / 870 Output Total 0 / 0 0 / 0 Balance 480 / 480 870 / 870 Weight 83.518 kg 82.639 kg Results Data Completed and Pending Completed studies during hospitalization [Text1]: EXAM: Comprehensive 2D, Doppler, and color-flow Echocardiogram Subway Operator: Dalila Strong, RT(R) Ht: 5 ft 7 in Wt: 182lbs BSA: 1.94 BP: 94/50 mmHg Indications: AVR, watchman device, HTN, HLD, SOB, hx CM Left Ventricle The left ventricle is normal size. The left ventricular systolic function is normal. The left ventricular ejection fraction is within the normal range. There is increased left ventricular wall thickness. There is normal LV segmental wall motion. LVEF is 55-60%. Right Ventricle Right ventricle is mildly dilated. Right ventricle is mildly hypokinetic. Atria The left atrium size is normal. There are no masses visualized in the LA. The patient is s/p Watchman device. The Watchman is well-seated in position in the NELLY orifice. There are no ivan-device leaks or masses/thrombi noted. The right atrium size is normal. Eustachian valve is noted in the RA The
--- NOTE | 2023-07-04 19:43 | PC.NURSE ---
pt left floor at this time
--- NOTE | 2023-07-04 20:00 | PC.NURSE ---
Patient had MELLISSA today. Patient discharged home with family
--- NOTE | 2023-07-06 13:43 | CARE MANAGER ---
Spoke with patient related to hospital discharge. She states she is doing well. She is aware of medication changes and the fact she needs to make her follow up appointments. Offered to transfer to the office to make appointment and she stated she would do at a later time. She denies questions or concerns. JULITO Elliott
== END 2023-07-04 19:30 | disposition home or self-care (01) ==
LOC: 2ND 10:10
PROVIDERS: Internal Medicine; Physician Assistant; Admitting Provider Internal Medicine Adolescent Medicine; PCP Emergency Medicine; Visit Provider Internal Medicine Adolescent Medicine
DX: E87.5 Hyperkalemia (principal); N17.9 Acute kidney failure, unspecified; F32.A Depression, unspecified; K21.9 Gastro-esophageal reflux disease without esophagitis; E78.2 Mixed hyperlipidemia; M17.12 Unilateral primary osteoarthritis, left knee; Z95.2 Presence of prosthetic heart valve; I07.1 Rheumatic tricuspid insufficiency; I11.9 Hypertensive heart disease without heart failure; I48.0 Paroxysmal atrial fibrillation; D64.89 Other specified anemias
CPT/HCPCS: G0379; 36415; 80048; 80053; 83735; 83880; 85025; 85610; 93005; 93312; G0378

== ENCOUNTER → 2023-07-25 14:27 | Outpatient (CLI) | payer MEDICARE, MEDICAID, SELFPAY ==
[2023-07-25 14:47] LABS: Basophils % 0.4 % (0.1-2.0); Eosinophils # 0.1 K/mm3 (0.0-0.4); Eosinophils % 4.3 % (0.1-12.0); Hematocrit 42.3 % (37.0-47.0); Hemoglobin 13.2 g/dL (12.2-16.2); Lymphocytes % 32.3 % (10-50); Mean Corpuscular HGB Conc 31.2 g/dL (31.8-35.4); Mean Corpuscular Hemoglobin 25.2 pg (27.0-31.2); Mean Corpuscular Volume 80.9 fl (81-99); Mean Platelet Volume 8.5 fl (7.4-10.4); Monocytes # 0.2 K/mm3 (0.1-1.0); Neutrophils # 1.8 K/mm3 (1.8-7.8); Neutrophils % 55.9 % (37.0-80.0); Platelet Count 108 K/mm3 (142-424); Red Blood Count 5.23 M/mm3 (4.20-5.40); Red Cell Distribution Width 17.6 % (11.5-17.5); White Blood Count 3.1 K/mm3 (4.8-10.8)
[2023-07-25 16:06] LABS: Chloride 104 mmol/L (98-107); Potassium 4.9 mmoL/L (3.5-5.1); Sodium 141 mmol/L (136-145)
[2023-07-25 16:09] LABS: Anion Gap 14.9 mEq/L (5-15); Blood Urea Nitrogen 23 mg/dl (7-17); Calcium 8.5 mg/dl (8.4-10.2); Carbon Dioxide 27 mmol/L (22.0-30.0); Estimated Glomerular Filt Rate 61 ml/min (>60); GFR (African American) 74 ML/MIN (>60); Glucose 105 mg/dl (74-100)
[2023-07-25 16:20] LABS: NT Pro Brain Natriuretic Pep. 1400 pg/mL (0-450)
== END ==
PROVIDERS: PCP Emergency Medicine; Visit Provider Physician Assistant
DX: R06.02 Shortness of breath (principal); I10 Essential (primary) hypertension; Z86.39 Personal history of other endocrine, nutritional and metabolic disease; D69.6 Thrombocytopenia, unspecified
CPT/HCPCS: 36415; 80048; 83880; 85025

== ENCOUNTER → 2023-09-07 12:46 | Outpatient (CLI) | payer MEDICARE, MEDICAID, SELFPAY ==
--- NOTE | 2023-09-07 | CA_ITS ---
APPROVED REPORT Exam: Pharmacologic Technologist: Jessy Rodriguez, Ht: 5 ft 7 in Wt: 181 lbs BSA: 1.94 m2 HR: 77 bpm BP: 166/85 mmHg Medical History Medications: Amlodipine,,,,, Lisinopril,,,,, Aspirin,,,,, Gabapentin,,,,, Sotalol,,,,, Xanax,,,,, Citalopram,,,,, Lasix,,,,, Ropinirole,,,,, PERCOCET,,,,, Estradiol,,,,, Lansoprazole,,,,, Stress Test Details Test: DOBUTAMINE HR Resting HR: 76 bpm Max Heart Rate (APMHR): 145 bpm Max HR Achieved: 78 bpm Target HR (85% APMHR): 123 bpm % of APMHR: 54 Recovery HR: 78 bpm HR response to stress: Blunted HR response to stress BP Resting BP: 166.0/85.0 mmHg Max BP: 205.0/102.0 mmHg Recovery BP: 144.0/71.0 mmHg BP response to stress: Normal blood pressure response to stress. ECG Resting ECG: Aflutter with 4:1 conduction, incomplete RBBB leftward axis, poor R wave progression Stress ECG: No significant ST changes Clinical Exercise duration: 09:46 min Highest Stage Achieved: Stress ECG Conclusion Max HR: 78 % of PM: 54% Max BP: 205/102 Test stopped due to: Completed requested protocol Symptoms: None Arrhythmias/Ectopy: Aflutter with 4:[address]-T Changes: No ST changes noted. Conclusion: No significant ST changes with low-dose dobutamine administration. Blunted HR response on Bisoprolol and Satolol. Stress Echo images reported separately. Test Summary REST . . . . . . . Resting REST 13:03 . . 76 . 166/ 85 . . Stage 1 01:00 . . 76 . . . . Stage 1 02:00 . . 76 . . . . Stage 1 03:00 . . 76 . 165/ 93 . . Stage 2 01:00 . . 76 . . . . Stage 2 02:00 . . 76 . . . . Stage 2 03:00 . . 76 . 193/103 . . Stage 3 01:00 . . 76 . . . . Stage 3 02:00 . . 76 . . . . Stage 3 03:00 . . 77 . 205/102 . . Stage 4 00:46 . . 77 . . . Stop exercise at 09:46 RECOVERY 01:00 . . 77 . . . . RECOVERY 02:00 . . 77 . . . . RECOVERY 03:00 . . 78 . 195/ 91 . . RECOVERY 04:00 . . 78 . 179/ 86 . . RECOVERY 05:00 . . 78 . 179/ 86 . . RECOVERY 06:00 . . 78 . 161/ 80 . . RECOVERY 07:00 . . 78 . 161/ 80 . . RECOVERY 08:00 . . 78 . 162/ 79 . . RECOVERY 09:00 . . 77 . 162/ 79 . . RECOVERY 10:00 . . 77 . 150/ 68 . . RECOVERY 11:00 . . 78 . 150/ 68 . . RECOVERY 12:00 . . 78 . 142/ 74 . . RECOVERY 13:00 . . 78 . 142/ 74 . . RECOVERY 14:00 . . 78 . 142/ 74 . . RECOVERY 14:41 . . 78 . 144/ 71 . . Electronically signed by : Lanette Newell MD 09/09/2023 22:51:39
--- NOTE | 2023-09-07 12:54 | CA_ITS ---
APPROVED REPORT EXAM: Comprehensive 2D, Doppler, and color-flow Echocardiogram Safe Expert: MARYSE Bowman, MAGALI Ht: 5 ft 7 in Wt: 182lbs BSA: 1.94 BP: 136/68 mmHg Rhythm: Aflutter Medical History Medical History: Atrial Fibrillation, watchman device, AVR- 2013 Echo Procedure The patient underwent a Pharmacological Stress Test using Dobutamine. Blood pressure, heart rate, and EKG were monitored. An Echocardiogram was performed by calibration laboratory technician in four stages in quad fashion. At peak stress, four selected images were obtained and placed side by side with resting images for comparison. Stress Test Details Test: Low-dose dobutamine stress echo HR Max Heart Rate (APMHR): 145 bpm Target HR (85% APMHR): 123 bpm BP ECG Echo Findings The Pre-Stress Echocardiogram showed normal left ventricular contractility with an estimated Ejection Fraction of about 60-65%. The pre-stress echocardiogram demonstrates mean AV gradient is 18 mmHg. Max AV gradient is 36 mmHg. Peak velocity is 3.1 m/s. DI=0.19. LVOT SVi < 35 mL/m2. The Post-Stress Echocardiogram showed normal left ventricular contractility with an estimated Ejection Fraction of about 65%. At peak stress, echocardiogram demonstrates no significant change in AV gradients and peak velocity despite increase in stroke volume. Mean AV gradient is 22 mmHg. Peak AV gradient is 37 mmHg. Peak velocity 3.1 m/s. At peak stress, the TR peak gradient is markedly elevated at 65 mmHg. Other Information Study Quality: Fair Conclusion Low-dose dobutamine stress test demonstrates no significant change in AV gradients despite improvement in stroke volume. Mean AV gradient is 22 mmHg. Peak AV gradient is 37 mmHg. Peak velocity 3.1 m/s. Findings are consistent with moderate in the setting of AVR. Of note, at peak stress, the TR peak gradient is markedly elevated at 65 mmHg. The patient also had a hypertensive BP response at peak stress with dobutamine infusion. Electronically signed by : Lanette Newell MD 09/09/2023 22:57:43
== END ==
PROVIDERS: PCP Emergency Medicine; Visit Provider Physician Assistant
DX: I35.0 Nonrheumatic aortic (valve) stenosis (principal); R06.09 Other forms of dyspnea
CPT/HCPCS: 93017; 93018; 93350

== ENCOUNTER 2023-11-21 10:34 | Outpatient (CLI) | payer MEDICARE, MEDICAID, SELFPAY ==
--- NOTE | 2023-11-21 10:39 | XR_ITS ---
FINAL REPORT CLINICAL HISTORY: Rt Knee Pain knot on posterior side of knee x 8 months COMPARISON: None FINDINGS: Three views of the left knee reveal no evidence of fracture or dislocation. The bony alignment is normal. Mild and moderate degenerative changes present. There is moderate medial compartment degenerative narrowing. There are subchondral cysts beneath the medial tibial spine, and a subchondral cyst in the medial femoral condyle. A small joint effusion is present. No localized soft tissue abnormality is seen. IMPRESSION: No acute abnormality identified. Mild and moderate degenerative change as described. Reviewed, Interpreted and Dictated by Rj Zepeda III, MD Transcribed by Kristen Colin Authenticated and [facility]
== END 2023-11-21 23:59 ==
LOC: RAD 10:36
PROVIDERS: PCP Internal Medicine; Visit Provider Orthopaedic Surgery
DX: M25.562 Pain in left knee (principal)
CPT/HCPCS: 73562

== ENCOUNTER 2023-12-20 22:00 | Outpatient (CLI) | payer MEDICARE, MEDICAID, SELFPAY ==
[2023-12-20 19:59] LABS: Basophils % 0.3 % (0.1-2.0); Eosinophils # 0.1 K/mm3 (0.0-0.4); Eosinophils % 3.1 % (0.1-12.0); Hemoglobin 14.1 g/dL (12.2-16.2); Lymphocytes % 28.6 % (10-50); Mean Corpuscular HGB Conc 33.6 g/dL (31.8-35.4); Mean Corpuscular Hemoglobin 27.5 pg (27.0-31.2); Mean Platelet Volume 9.2 fl (7.4-10.4); Monocytes # 0.2 K/mm3 (0.1-1.0); Neutrophils # 2.1 K/mm3 (1.8-7.8); Neutrophils % 61.1 % (37.0-80.0); Platelet Count 105 K/mm3 (142-424); Red Blood Count 5.12 M/mm3 (4.20-5.40); Red Cell Distribution Width 14.3 % (11.5-17.5); White Blood Count 3.5 K/mm3 (4.8-10.8)
[2023-12-20 20:15] LABS: Chol/HDL Ratio 6.2 (1-3.5); Cholesterol 197 mg/dl (140-200); HDL Cholesterol 32 mg/dl (40-60); Triglycerides 101 mg/dl (30-150); VLDL Cholesterol 20 mg/dL (0-40)
[2023-12-20 20:27] LABS: Direct LDL Cholesterol 135.68 mg/dL (100-129)
[2023-12-20 20:36] LABS: Erythrocyte Sedimentation Rate 13 mm/hr (0-30)
[2023-12-20 20:41] LABS: 25-OH Vitamin D, Total < 12.8 ng/mL (30-100)
[2023-12-20 20:49] LABS: Thyroid Stimulating Hormone 2.72 uIU/mL (0.465-4.68)
[2023-12-20 21:24] LABS: Vitamin B12 251 pg/mL (239-931)
[2023-12-20 21:34] LABS: Folate 9.43 ng/mL
[2023-12-20 22:08] LABS: Hemoglobin A1C 5.4 % (4.0-6.0)
[2023-12-20 22:31] LABS: Ferritin 31.8 ng/ml (11.1-264)
[2023-12-22 13:03] LABS: Peripheral Smear Review SCANNED IMAGE
== END 2023-12-20 23:59 ==
LOC: LAB.DROPOF 22:01
PROVIDERS: PCP Internal Medicine; Visit Provider Internal Medicine
DX: R53.83 Other fatigue (principal); D69.6 Thrombocytopenia, unspecified; D64.9 Anemia, unspecified; E11.9 Type 2 diabetes mellitus without complications; E78.5 Hyperlipidemia, unspecified; E55.9 Vitamin D deficiency, unspecified; E53.8 Deficiency of other specified B group vitamins; D72.819 Decreased white blood cell count, unspecified; E05.90 Thyrotoxicosis, unspecified without thyrotoxic crisis or storm; Z79.899 Other long term (current) drug therapy
CPT/HCPCS: 80061; 82306; 82607; 82728; 82746; 83036; 84443; 85025; 85651

== ENCOUNTER 2024-01-25 16:28 | Outpatient (CLI) | payer MEDICARE, MEDICAID, SELFPAY ==
--- NOTE | 2024-01-25 16:28 | MR_ITS ---
FINAL REPORT CLINICAL HISTORY: pain in left knee COMPARISON: 09/05/2022 FINDINGS: Multi planar MR imaging of the left knee was obtained with and without contrast. There is a tear of the posterior horn of the medial meniscus. The lateral meniscus is intact. There is abnormal morphology of the anterior cruciate ligament, suspect chronic partial tear. The posterior cruciate ligament is intact. The medial and lateral collateral ligaments are intact. The patellar and quadriceps tendons are intact. There are moderate to severe degenerative changes. There is severe medial and patellofemoral chondromalacia with multiple subchondral cysts and small osteochondral lesions. Moderate joint effusion is identified. There are foci of contrast enhancement in the proximal tibia in the patella, likely reactive. IMPRESSION: Tear posterior horn medial meniscus. Suspect chronic partial tear of the anterior cruciate ligament. Degenerative change and chondromalacia as above. Reviewed, Interpreted and Dictated by Rj Zepeda III, MD Transcribed by Ginna Moreland Authenticated and [facility]
[2024-01-25 17:30] LABS: Blood Urea Nitrogen 20 mg/dl (7-17); Estimated Glomerular Filt Rate 81 ml/min (>60); GFR (African American) 98 ML/MIN (>60)
[2024-01-25] MEDS: GADOTERIDOL INJ 17ML SYRINGE 16 ML IV (17:43)
[2024-01-25] MEDS: SODIUM CHLORIDE 0.9% 10ML SYR (RAD ONLY) 10 ML IV (17:43)
[2024-01-25 17:47] LABS: Erythrocyte Sedimentation Rate 5 mm/hr (0-30)
[2024-01-25 18:07] LABS: C-Reactive Protein 1.7 mg/L (0-4)
[2024-01-26 14:59] LABS: Anti-Centromere B Antibodies <0.2 AI (0.0-0.9); Anti-DNA (DS) Ab Qn 3 IU/mL (0-9); Anti-Jo-1 <0.2 AI (0.0-0.9); Anti-Smith Antibody <0.2 AI (0.0-0.9); Antichromatin Antibodies <0.2 AI (0.0-0.9); Antiscleroderma-70 Antibodies <0.2 AI (0.0-0.9); RNP Antibodies <0.2 AI (0.0-0.9); Sjogren's Anti-SS-A <0.2 AI (0.0-0.9); Sjogren's Anti-SS-B <0.2 AI (0.0-0.9)
[2024-02-08 11:20] LABS: Rheumatoid Factor IGA < 7 U (<7); Rheumatoid Factor IGM < 7 U (<7)
== END 2024-01-25 23:59 ==
LOC: RAD 16:28
PROVIDERS: PCP Internal Medicine; Visit Provider Internal Medicine
DX: M25.562 Pain in left knee (principal); R53.83 Other fatigue; Z79.899 Other long term (current) drug therapy
CPT/HCPCS: 36415; 73723; 82565; 84520; 85651; 86140; 86225; 86235; 86431; A9576

== ENCOUNTER 2024-07-16 09:33 | Outpatient (CLI) | payer MEDICARE, MEDICAID, SELFPAY ==
--- NOTE | 2024-07-16 09:39 | XR_ITS ---
FINAL REPORT CLINICAL HISTORY: Left Knee pain, arthritis COMPARISON: 11/21/2023 FINDINGS: Three views of the left knee reveal no evidence of fracture or dislocation. The bony alignment is normal. There is moderate degenerative change with medial compartment narrowing. A small joint effusion is present. No localized soft tissue abnormality is seen. IMPRESSION: Moderate degenerative change as described, with a small joint effusion. No acute bony abnormality identified. Reviewed, Interpreted and Dictated by Rj Zepeda III, MD Transcribed by Kristen Colin Authenticated and [facility]
== END 2024-07-16 23:59 | disposition home or self-care (01) ==
LOC: RAD 09:34
PROVIDERS: PCP Emergency Medicine; Visit Provider Orthopaedic Surgery
DX: M25.562 Pain in left knee (principal)
CPT/HCPCS: 73562

== ENCOUNTER 2024-08-01 08:52 | Outpatient (CLI) | payer MEDICARE, MEDICAID, SELFPAY ==
--- NOTE | 2024-08-01 08:57 | CA_ITS ---
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 2D Dimensions Aortic Root 2.39 cm EF AP4 61.20 % Left Atrium 4.80 cm GL Strain -18.8 % RVID Base (AP4) 4.39 cm (M/F) 2.5-4.1 LVOT 1.86 cm (M/F) 1.5-2.5 M-Mode Dimensions RVDd 3.38 cm (0.9-2.6) LVDd 4.25 cm (3.5-5.7) Ao Diam 2.48 cm (2.0-3.7) LVDs 2.25 cm (3.5-5.7) IVSd 1.18 cm (0.6-1.1) PWd 1.25 cm (0.6-1.1) EF (Teich) 77.00% EPSs 0.30 cm FS 45.10% EDV (Teich) 74.20 mL TAPSE 0.89 (<1.7) ESV (Teich) 17.10 mL LV Diastology E Decel Time 139 (160-240 msec) E/A Ratio 2.53 MED E' 8.3 (>= 7 cm/sec) MED A' 2.90 cm/s E'/MED E' Ratio 14.30 (<= 14) LAT E' 12.9 (>= 10 cm/sec) LAT A' 3.60 cm/s E/LAT E' Ratio 9.20 (<= 14) Pulm Vein s 13.00 cm/sec PV S/D Ratio 2.49 Pulm Vein d 25.00 cm/sec Ar-A Duration 142.00 msec Aortic Valve LVOT Max 79.0 (70-110 cm/s) HERIBERTO Index 0.37 cm2/m2 LVOT VTI 19.48 cm AoV Peak Anshul. 323.0 (50-130 cm/s) AO Peak GR. 38.00 mmHg AO Mean GR. 21.60 (<5 mmHg) AO VTI 71.1 (18-25 cm) HERIBERTO (VTI) 0.74 (2.5-4.5 cm2) Mitral Valve MV E Max Anshul. 119.0 (40-130 cm/s) MV A Velocity 47.0 (40-130 cm/s) E/A Ratio 2.53 MV Decel. Time 139 (160-240 ms) MV Mean Gr. 1.90 (<2mmHg) Tricuspid Valve TR P. Velocity 342.00 cm/s RAP Estimate 10.00 mmHg RVSP 56.90 mmHg Left Ventricle The left ventricle is normal size. The left ventricular systolic function is normal. The left ventricular ejection fraction is within the normal range. There is increased LV wall thickness. There is normal LV segmental wall motion. Grade 3 diastolic dysfunction is present. LVEF is 55%. Right Ventricle Right ventricle is mildly dilated. The right ventricular systolic function is mildly hypokinetic. Atria Left atrium is severely dilated. Right atrium is severely dilated. s/p iatrogenic ASD in the setting of Watchman device procedure. A small left to right interatrial shunt is noted on color Doppler. Aortic Valve s/p AVR. The prosthesis is well-seated. There is thickened annular plane along the AV prosthesis. Mean AV gradient 22 mmHg. Max AV gradient 45 mmHg. Mild aortic regurgitation. Mitral Valve The mitral valve leaflets are mildly thickened. No evidence of mitral valve stenosis. Mild mitral regurgitation. Tricuspid Valve The tricuspid valve leaflets are thin and pliable. Moderate tricuspid regurgitation. RVSP is 45-50 mmHg. Pulmonic Valve The pulmonary valve is normal in structure. Trace pulmonic regurgitation. Great Vessels The aortic root is normal in size. The ascending aorta is not well-visualized. IVC is normal in size and collapses >50% with inspiration. Pericardium There is no pericardial effusion. Other Information Study Quality: Fair Conclusion Normal LV systolic function. Mild RV dilation with mild reduction in RV function. Severe biatrial dilation. s/p AVR with annular thickening of the prosthesis. Mean AV gradient 22 mmHg. Max AV gradient 45 mmHg. Mild AI. Mild MR. Moderate TR. Elevated RVSP 45-50 mmHg. s/p iatrogenic ASD in the setting of prior Watchman device procedure. Color Doppler demonstrates presence of left to right interatrial shunt. In the setting of elevated AVR gradients, clinical correlation is required, along comparison with priors TTEs. Serial TTE evaluations are suggested. Electronically signed by : Lanette Newell MD 08/04/2024 20:27:28
== END 2024-08-01 23:59 | disposition home or self-care (01) ==
LOC: RT 08:53
PROVIDERS: PCP Emergency Medicine; Visit Provider Physician Assistant
DX: Z95.2 Presence of prosthetic heart valve (principal); I34.0 Nonrheumatic mitral (valve) insufficiency; I36.1 Nonrheumatic tricuspid (valve) insufficiency
CPT/HCPCS: 93306

== ENCOUNTER 2025-07-08 10:18 | Outpatient (CLI) | payer MEDICARE, MEDICAID, SELFPAY ==
--- NOTE | 2025-07-08 10:23 | XR_ITS ---
FINAL REPORT CLINICAL HISTORY: left knee pain injury 4 months ago COMPARISON: None FINDINGS: LEFT KNEE 3 views of the left knee were obtained. There is no acute fracture or dislocation. There is moderate medial and lateral compartment joint space narrowing. Small osteophyte is noted along the undersurface of the patella. There are small osteophytes of the medial and lateral joint margins. Soft tissues are unremarkable. IMPRESSION: Degenerative/chronic changes without acute bony abnormality. Reviewed, Interpreted and Dictated by Gagandeep Lewis MD Transcribed by eMna Lee Authenticated and [facility]
--- OUTSIDE RECORDS SUMMARY | 2025-07-08 10:58 | XMS_ITS | Clinical Summary ---
Author Organization Healthcare Address [address] [place] [address] Care Team Providers Care Complaint Evaluation Supervisor Name Role Phone Benito Mathew MD Primary Care Provider [phone] Allergies Active Allergy Reactions Criticality Noted Date Comments Codeine Other - please docum ent in the comment field Low 04/19/2021 Medications citalopram (CeleXA) 20 MG tablet Take 20 mg by mouth 1 (one) time each day. Active buPROPion XL (Wellbutrin XL) 150 MG 24 hr tablet Take 150 mg by mouth 1 (one) time each day. Do not crush, chew, or split. Active bisoprolol (Zebeta) 10 MG tablet Take 10 mg by mouth 1 (one) time each day. Active estradiol (Estrace) 0.5 MG tablet Take 0.5 mg by mouth 1 (one) time each day. Active sotalol (Betapace) 80 MG tablet Take 80 mg by mouth 2 (two) times a day. Active lisinopril 10 MG tablet Take 10 mg by mouth 1 (one) time each day. Active rOPINIRole (Requip) 2 MG tablet Take 2 mg by mouth every night. 1-2 tablets Active aspirin 81 MG EC tablet Take 81 mg by mouth 1 (one) time each day. Active ALPRAZolam (Xanax) 0.5 MG tablet Take 0.5 mg by mouth 3 (three) times a day if needed. Active ondansetron (Zofran) 4 MG tablet Take 4 mg by mouth every 8 (eight) hours if needed for nausea or vomiting. Active lansoprazole (Prevacid) [address] capsule Take 30 mg by mouth 1 (one) time each day before breakfast. Do not crush or chew. Active gabapentin (Neurontin) 300 MG capsule Take 300 mg by mouth 4 (four) times a day if needed. Active oxyCODONE-aceta minophen (Percocet) 10-325 MG tablet Take 1 tablet by mouth 4 (four) times a day if needed for severe pain. Active Active Problems Problem Noted Date Diagnosed Date Presence of Watchman left atrial appendage closu re device 06/08/2021 Overview (06/08/2021): 31mm [facility] Watchman FLX Device placed 04/27/[address] De Luna. History of GI bleed 04/28/2021 PAF (paroxysmal atrial fibrillation) 04/06/2021 Overview (04/06/2021): Added automatically from request for surgery 181 Anemia 02/09/2021 Claudication 02/09/2021 HLD (hyperlipidemia) 02/09/2021 HTN (hypertension) 02/09/2021 Mitral valve regurgitation 02/09/2021 Palpitation 02/09/2021 Pulmonary HTN 02/09/2021 Family History Medical History Relation Name Comments Coronary artery disease Other 1 Hypertension Other 2 Multiple sclerosis Other 3 Relation Name Status Comments Other 1 Other 2 Other 3 Social History Tobacco Use Types Packs/Day Years Used Date Smoking Tobacco: Never Smokeless Tobacco: Never Alcohol Use Standard Drinks/Week Comments No 0 (1 standard drink = 0.6 oz pure alcohol) Alcoholic Drinks/day: Denies alcohol consumption Comments Unknown Sex and Gender Information Value Date Recorded Sex Assigned at Not on file Legal Sex Female 8:29 PM EDT Gender Identity Not on file Sexual Orientation Not on file Last Filed Vital Signs Vital Sign Reading Time Taken Comments Blood Pressure 129/41 05/23/2023 3:28 PM EDT Pulse 55 05/23/2023 3:28 PM EDT Temperature 36.7 C (98.1 F) 04/28/2021 3:44 PM EDT Respiratory Rate 14 04/28/2021 3:44 PM EDT Oxygen Saturation 98% 06/10/2021 11:59 AM EDT Inhaled Oxygen Concentration - - Weight 83.9 kg (185 lb) 05/23/2023 3:28 PM EDT Height 170.2 cm (5' 7 ) 05/23/2023 3:28 PM EDT Body Mass Index 28.98 05/23/2023 3:28 PM EDT Plan of Treatment Health Maintenance Due Date Last Done Comments [facility]-Bone Density Scan 1945 [facility]-Depression Screening 1945 [facility]-Infant/Child/Adol SDOH Screenings 1945 [facility]- SDOH Screenings 1965 [facility]-Adult SDOH Screenings 1965 [facility]-Zoster Vaccines (1 of 2) 1997 [facility]-DTaP,Tdap,and Td Vaccines (1 - Tdap) 05/21/2011 05/20/2011 [facility]-RSV Vaccine: 60+ Years or (1 - 1-dose 75+ series) 2022 [id number] Vaccine (2 - season) 2024 06/22/2021 [facility]-Influenza Vaccine (#1) 07/07/202511/20, 11/14/2016, 08/23/2010, Additional history exists [facility]-Pneumococcal Vaccine: 50+ Years Completed 08/15/2017, 08/08/2016, 07/07/2016, Additional history exists HPV Vaccines Aged Out No longer eligi ble based on patient's age to complete this topic [facility]-HIB Vaccines Aged Out No longer e ligible based on patient's age to complete this topic [facility]-Hepatitis A Vaccines Aged Out No longer eligible based on patient's age to complete this topic [facility]-IPV Vaccines Aged Out No longer e ligible based on patient's age to complete this topic [facility]-Rotavirus Vaccines Aged Out No lo nger eligible based on patient's age to complete this topic Medical Devices Implanted Type Area Kiosk Sales Representative Device Identifier Shelf Expiration Date Model / Serial / Lot Giovanabeckie Sing Cve Access System - [id number] Implanted:Qty: 1 on 04/27/2021 by Antwon De Luna MD at [facility] [id number] 10/16/2023 [id number] / / [id number] Cole Flx Melinda Closure 31mm - [id number] Implanted:Qty: 1 on 04/27/2021 by Antwon De Luna MD at [facility] [id number] 11/13/2023 [id number] / / [id number] Insurance [facility] MEDICARE MEDICAID-[place] Advance Directives * Full Code (Latest Code Status on File) Date Activated Date Inactivated Comments 04/28/2021 9:11 AM 04/28/2021 7:31 PM Question Answer Comments Patient has decision-making capacity? Yes Care Teams Complaint Evaluation Supervisor Relationship Specialty Start Date End Date Benito Mathew MD [address] [place] [id number] PCP - General 03/19/21
== END 2025-07-08 23:59 | disposition home or self-care (01) ==
LOC: RAD 10:20
PROVIDERS: Visit Provider Physician Assistant
DX: M17.12 Unilateral primary osteoarthritis, left knee (principal)
CPT/HCPCS: 73562

== ENCOUNTER 2025-08-19 12:57 | Outpatient (CLI) | payer MEDICARE, MEDICAID, SELFPAY ==
--- NOTE | 2025-08-19 13:00 | CA_ITS ---
APPROVED REPORT EXAM: Comprehensive 2D, Doppler, and color-flow Echocardiogram Assistant Finance Director: Dalila Strong, RT(R) Ht: 5 ft 7 in Wt: 188lbs BSA: 1.97 BP: 125/59 mmHg Indications: AVR, Watchman device, afib 2D Dimensions Left Atrium 5.15 cm F: 2.7 - 3.8 LA Volume 51.80 mL LVOT 1.83 cm (M/F) 1.5-2.5 LA Volume Index 26.29 mL/m2 (M/F) 16-34 EF AP4 43.60 % GL Strain -13.0 % M-Mode Dimensions RVDd 3.00 cm (0.9-2.6) LVDd 4.55 cm (3.5-5.7) Ao Diam 2.06 cm (2.0-3.7) LVDs 3.19 cm (3.5-5.7) IVSd 0.87 cm (0.6-1.1) PWd 0.87 cm (0.6-1.1) EF (Teich) 57.20% FS 29.90% EDV (Teich) 94.90 mL ESV (Teich) 40.60 mL LV Diastology MED E' 10.4 (>= 7 cm/sec) LAT E' 12.6 (>= 10 cm/sec) Aortic Valve LVOT Max 97.0 (70-110 cm/s) HERIBERTO Index 0.32 cm2/m2 LVOT VTI 18.96 cm AoV Peak Anshul. 375.0 (50-130 cm/s) AO Mean GR. 27.70 (<5 mmHg) AO VTI 77.9 (18-25 cm) HERIBERTO (VTI) 0.64 (2.5-4.5 cm2) Tricuspid Valve TR P. Velocity 376.00 cm/s Left Ventricle The left ventricle is normal size. Left ventricular systolic function is normal. The left ventricular ejection fraction is within the normal range. There is increased left ventricular wall thickness. There is normal LV segmental wall motion. The left ventricular diastolic function is indeterminate. LVEF is 55% Right Ventricle The right ventricle is mildly dilated. The right ventricular systolic function is mildly reduced. Atria The left atrium is severely dilated. The right atrium is severely dilated. s/p iatrogenic ASD post-Watchman device placement. Aortic Valve s/p AVR. The prosthesis is well-seated. Known history of pannus formation. Peak velocity 3.2 m/s. Mean AV gradient 27 mmHg. Max AV gradient 49 mmHg. Mild central aortic regurgitation is present. No paravalvular leak. Mitral Valve The mitral valve is mildly thickened. No evidence of mitral valve stenosis. Mild mitral regurgitation is present. Tricuspid Valve The tricuspid valve leaflets are thin and pliable. Moderate tricuspid regurgitation. RVSP 45-50 mmHg. Pulmonic Valve The pulmonary valve is grossly normal in structure. Trace pulmonic valve regurgitation is present. Great Vessels The aortic root is normal in size. IVC is normal in size and collapses >50% with inspiration. Pericardium There is no pericardial effusion. Other Information Study Quality: Fair Conclusion Normal LV systolic function. Mildly dilated RV with mild reduction in RV function. Biatrial dilation. s/p iatrogenic ASD post-Watchman device placement. s/p AVR. Mild central AI. Known history of pannus formation. Peak velocity 3.2 m/s. Mean AV gradient 27 mmHg. Max AV gradient 49 mmHg. Moderate TR. Mild MR. Compared to prior study from 08/02/2024, the biventricular size and systolic function are unchanged. The AV gradients are also unchanged in the setitng of known history of pannus formation. Clinical correlation is required. Electronically signed by : Lanette Newell MD 08/21/2025 17:12:19
--- OUTSIDE RECORDS SUMMARY | 2025-08-19 13:03 | XMS_ITS | Clinical Summary ---
Author Organization Healthcare Address [address] [place] [address] Care Team Providers Care High [employer] Biology Teacher Name Role Phone Benito Mathew MD Primary Care Provider [phone] Allergies Active Allergy Reactions Criticality Noted Date [...] re device 06/08/2021 Overview (06/08/2021): 31mm [facility] Watchman FLX Device placed 04/27/2021 [...] [facility]-Bone Density Scan 1945 [facility]-Depression Screening 1947 [facility]-/Child/Adol SDOH Screenings 1945 [facility]- SDOH Screenings 1965 [facility]-Adult SDOH Screenings 1965 [facility]-Zoster Vaccines (1 of 2) 1997 [facility]-DTaP,Tdap,and Td Vaccines (1 - Tdap) 05/21/2011 05/20/2011 [facility]-RSV Vaccine: 60+ Years or (1 - 1-dose 75+ series) 2022 [id number] Vaccine (2 - season) 2025 06/22/2021 [facility]-Influenza Vaccine (#1) 07/07/202511/20, 11/14/2016, 08/23/2010, [...] this topic Medical Devices Implanted Type Area Muskrat Trapper Device Identifier Shelf Expiration Date Model / Serial / Lot Giovanabeckie Sing Cve Access System - [id number] Implanted:Qty: 1 on 04/27/2021 by Antwon De Luna MD at [facility] [id number] 10/16/2023 [id number] / / [id number] Cole Flx Melinda Closure 31mm - [id number] Implanted:Qty: 1 on 04/27/2021 by Antwon De Luna MD at [facility] [id number] 11/13/2023 [id number] / / [id number] Insurance [facility] MEDICARE MEDICAID-[place] Advance Directives * Full Code (Latest Code Status on File) Date Activated Date Inactivated Comments 04/28/2021 9:11 AM 04/28/2021 7:31 PM Question Answer Comments Patient has decision-making capacity? Yes Care Teams High [employer] Biology Teacher Relationship Specialty Start Date End Date Benito Mathew MD [address] [place] [id number] PCP - General 03/19/21
== END 2025-08-19 23:59 | disposition home or self-care (01) ==
LOC: RT 12:58
PROVIDERS: PCP Emergency Medicine; Visit Provider Internal Medicine
DX: I08.3 Combined rheumatic disorders of mitral, aortic and tricuspid valves (principal); Z95.818 Presence of other cardiac implants and grafts; Z98.890 Other specified postprocedural states
CPT/HCPCS: 93306